=== PATIENT | male | born 1935 | race Caucasian/White ===

== ENCOUNTER 2019-09-20 15:44 | Inpatient (IN) | payer MEDICARE ==
[2019-09-20] MEDS ORDERED: Acetaminophen 500 MG TAB PO PRN (17:13)
[2019-09-20] MEDS ORDERED: [UNRECOGNIZED DRUG - OTHER] PO PRN ×2 (17:30)
[2019-09-20] MEDS ORDERED: OXYCODONE PO PRN ×2 (17:30)
[2019-09-20] MEDS: Senokot S 8.6-50 MG TAB PO SCH (20:21)
[2019-09-20] MEDS: Gabapentin 300 MG CAP PO SCH (20:21)
[2019-09-20] MEDS: Tamsulosin HCl 0.4 MG CAP PO SCH (20:22)
[2019-09-20] MEDS: Atorvastatin Calcium 10 MG TAB PO SCH (20:22)
[2019-09-20] MEDS: oxyCODONE 5 MG TAB PO PRN (20:27)
[2019-09-20] MEDS: Zolpidem Tartrate 5 MG TAB PO PRN (22:16)
[2019-09-21] MEDS: oxyCODONE 5 MG TAB PO PRN ×5 (00:41→21:09)
[2019-09-21] MEDS: Acetaminophen 500 MG TAB PO PRN ×5 (00:41→21:11)
[2019-09-21] MEDS ORDERED: Cefepime 2 GM VIAL IVPB SCH (05:00)
[2019-09-21] MEDS: Cefepime 2 GM in Sodium Chloride 0.9% 100 ML IVPB SCH ×2 (05:03→16:45)
[2019-09-21] MEDS: Sodium Chloride 0.9% 20 ML ONE ×2 (05:04→14:22)
[2019-09-21 05:40] LABS: #Basophils 0.1 thou/uL (0.0-0.2); #Eosinphils 0.6 thou/uL (0.0-0.7); #Lymphocytes 1.3 thou/uL (1.20-3.40); #Monocytes 0.6 thou/uL (0.11-0.59); %Basophils 0.7 % (0.0-1.0); %Eosinophils 7.7 % (0.0-10.0); %Monocytes 8.5 % (0.0-10.0); %Neutrophils 66.1 % (42.0-75.0); Hemoglobin 8.1 g/dL (14.0-18.0); Mean Corpuscular HGB CONC 31.3 g/dL (32.0-36.0); Mean Corpuscular Hemoglobin 29.8 pg (27.0-31.0); Mean Corpuscular Volume 95.1 fL (78.0-98.0); Mean Platelet Volume 7.3 fL (7.4-10.4); Platelet Count 249 thou/uL (130-400); RBC Distribution Width 16.6 % (11.5-14.5); Red Blood Cell (RBC) Count 2.72 mill/uL (4.70-6.10); White Blood Cell (WBC) Count 7.5 thou/uL (4.8-10.8)
[2019-09-21 05:54] LABS: ALT (SGPT) 43 U/L (8-55); AST (SGOT) 29 U/L (5-34); Albumin 2.4 g/dL (3.4-4.8); Alkaline Phosphatase 77 U/L (40-110); Anion Gap 11 mmol/L (10-20); BUN (Urea Nitrogen) 9 mg/dL (8.4-25.7); Bilirubin, Total 0.5 mg/dL (0.2-1.2); Calc. Creatinine Clearance 99 mL/min (70-130); Calcium 7.5 mg/dL (7.8-10.44); Carbon Dioxide 25 mmol/L (23-31); Chloride 105 mmol/L (98-107); Estimated GFR-MDRD Greater than 90; Globulin 2.3 g/dL (2.4-3.5); Glucose 95 mg/dL (83-110); Potassium 3.6 mmol/L (3.5-5.1); Protein, Total 4.7 g/dL (5.8-8.1); Sodium 137 mmol/L (136-145)
--- NOTE | 2019-09-21 08:01 | HP ---
HISTORY OF PRESENT ILLNESS: The patient is an unfortunate 83-year-old white male with a history of recent diagnosis of osteomyelitis and infected lumbosacral hardware requiring removal of the hardware by Dr. Gaona and placement on cefepime 2 g IV q.12 hours until November 04 because of Klebsiella infection on the hardware. He has had problems with chronic pain in his back for years secondary to thoracic spinal stenosis requiring the initial decompression in July of 2018 as well as a lumbar laminectomy in 2018. He has been followed by pain management and has been started on oxycodone routinely because of persistent pain with recommendation for possible fentanyl patch if this does not control his pain. At this time, he is awake and alert and in no distress except asking for his pain medicine. He is having moderate weakness in his legs with inability to raise against gravity off the bed more than a few inches. He is not having any fecal incontinence, but he has had a long history of benign prostatic hypertrophy with lower tract obstructive symptoms and has developed urinary retention during this hospitalization. He has been seen by Urology, Dr. Hernandez, started on Flomax and finasteride and has had his Melendez catheter removed immediately prior to discharge with instructions for intermittent catheterizations and routine bladder scans for check of post void residuals. He has also had a complication during this admission of his episode of hypotension felt to be due to combination of neurogenic shock versus hypovolemia with doubt for bacteremia and sepsis, this has resolved. He also has had a history of gastrointestinal bleeding. It is felt to be due to recurrent NSAID use and this all has resolved with IV fluids, but did require 1 unit of packed cells. He has been admitted to [facility] unit, started on physical therapy as well as pain relief and continued antibiotics. PAST MEDICAL HISTORY: Remarkable also for history of hypertension, hyperlipidemia. No history of coronary artery disease, congestive heart failure. PAST SURGICAL HISTORY: Positive for thoracic and lumbar laminectomy and decompression with placement of hardware and also has had skin cancer removal in the past. SOCIAL HISTORY: He is a former tobacco smoker, has not smoked in 10 years. He denies alcohol use. He lives with his . He has no known drug allergies. MEDICATIONS: At this time include; 1. Aspirin 81 daily. 2. Atorvastatin 10 nightly. 3. Cefepime 2 g IV twice daily q.12 hours until November 04. 4. Ciprofloxacin 500 mg p.o. q.12 to start on November 05, continue for 6 months. 5. Ferrous sulfate 325 mg every other day. 6. Finasteride 5 daily. 7. Gabapentin 300 three times daily. 8. Oxycodone 10 mg every 4 hours as needed for severe pain or oxycodone 5 mg every 4 hours as needed for [id number] pain. 9. Pantoprazole 40 mg daily. 10. MiraLAX 17 g daily. 11. Tamsulosin 0.4 mg twice daily. 12. Ambien 5 mg at night for sleep. REVIEW OF SYSTEMS: CONSTITUTIONAL: He denies any headaches, dizziness, change in vision or hearing, hoarseness, or dysphagia. PULMONARY: Denies any cough, sputum production, pneumonia, asthma, or tuberculosis. CARDIOVASCULAR: Denies chest pain, orthopnea, paroxysmal nocturnal dyspnea, or edema. GASTROINTESTINAL: Denies nausea, vomiting, abdominal pain at this time or even when he had his upper GI bleed. GENITOURINARY: He has recurrent symptoms of lower tract obstruction with nocturia, decreased stream, has no dysuria. He is at this time having no symptoms of retention or dysuria and has been monitored closely. MUSCULOSKELETAL: He has a history of pain in his back, which is improved from laminectomy, but is still severe with most pain occurring upon standing, but also occurs upon sitting and even at rest. This, however, is being controlled with his oxycodone at this time and being monitored closely. NEUROLOGIC: He has above-mentioned weakness in his legs, some mild decreased sensation in his legs. He has no fecal incontinence. Does have some mild urinary incontinence and obviously has the lower tract obstruction. PHYSICAL EXAMINATION: GENERAL: Shows him to be an elderly white male, lying in bed, in no acute distress. Oriented x3 and cooperative. VITAL SIGNS: Show temperature of 98.6, pulse 74, respirations 22, O2 sats 94% on room air, and blood pressure 121/62. HEENT: Pupils are equal, round, and reactive to light and accommodation. Sclerae are anicteric. Conjunctivae are pale. Oral mucous membranes well hydrated. NECK: Supple. There are no nodes or masses. JVP is not elevated. LUNGS: Clear. CARDIAC: Showed regular rhythm. No gallops or murmurs. ABDOMEN: Soft and nontender with no masses or organomegaly. SKIN/EXTREMITIES: Display healing thoracic laminectomy incision. NEUROLOGICAL: Shows decreased strength in the legs with inability to raise more than a few inches off the bed. Cranial nerves 2 through 12 are intact. Deep tendon reflex 2+ and equal. Absent Babinski sign. LABORATORY DATA: Showing white count 11,100, hemoglobin of 8.8, and hematocrit of 25.2. Sodium 139, potassium 3.7, chloride 105, bicarb 27, BUN 11, and creatinine 0.62. ASSESSMENT: 1. Resolving Klebsiella infection of thoracic hardware, status post removal of hardware and decompressive laminectomy, now on cefepime 2 g IV q.12 until November 04. 2. Symptoms of persistent spinal cord stenosis with weakness in the legs and with increased urinary retention starting on PT/OT. 3. Recurrent pain secondary to the above-mentioned diskitis, osteomyelitis, superimposed on chronic degenerative disk disease and spinal stenosis, being followed by pain management on oxycodone 5 to 10 mg every 4 hours as needed for pain. 4. Lower tract obstructive symptoms secondary to benign prostatic hyperplasia with possible superimposed neurogenic bladder requiring Melendez catheterization until immediately prior to transfer, but now having residuals and we will replace Melendez and discuss intermittent catheterization with the patient as he appeared hesitant initially. 5. History of upper gastrointestinal bleed secondary to nonsteroidal anti-inflammatory use and we will monitor closely on pantoprazole for any recurrence. Job ID: [id number]
[2019-09-21] MEDS: Aspirin 81 mg Enteric Coated Tablet PO SCH (08:13)
[2019-09-21] MEDS: Gabapentin 300 MG CAP PO SCH ×3 (08:13→21:11)
[2019-09-21] MEDS: Calcium Carbonate 500 MG TAB PO SCH (08:13)
[2019-09-21] MEDS: Tamsulosin HCl 0.4 MG CAP PO SCH ×2 (08:13→21:11)
[2019-09-21] MEDS: Senokot S 8.6-50 MG TAB PO SCH ×2 (08:13→21:11)
[2019-09-21] MEDS: Finasteride 5 MG TAB PO SCH (08:14)
[2019-09-21] MEDS: Polyethylene Glycol 3350 17 GM Packet PO SCH (08:14)
[2019-09-21] MEDS ORDERED: Prevnar 13-Val Conj/PF 0.5 ML SYRINGE IM ONE (09:00)
[2019-09-21] MEDS: Pantoprazole 40 MG VIAL IVP SCH (14:22)
[2019-09-21] MEDS: Atorvastatin Calcium 10 MG TAB PO SCH (21:11)
[2019-09-22] MEDS ORDERED: Sodium Chloride 0.9% 20 ML ONE (03:15)
[2019-09-22] MEDS: Cefepime 2 GM in Sodium Chloride 0.9% 100 ML IVPB SCH ×2 (05:21→17:03)
[2019-09-22] MEDS: Acetaminophen 500 MG TAB PO PRN ×4 (05:23→21:08)
[2019-09-22] MEDS: oxyCODONE 5 MG TAB PO PRN ×4 (05:23→21:07)
--- NOTE | 2019-09-22 08:56 | PRG ---
DATE OF SERVICE: 09/21/2019 SUBJECTIVE: The patient feels better with persistent pain, but tolerable. No fever, chills, is eating well. Has not had therapy this weekend, however. OBJECTIVE: VITAL SIGNS: Temperature is 97, pulse 84, respirations 20, O2 saturations 95% on room air, blood pressure is 112/56. LABORATORY DATA: White count 7500, hematocrit 25, hemoglobin 8.1. Sodium 137, potassium 3.6, chloride 105, bicarb 25, BUN 9, creatinine 0.6, albumin 2.4. Liver function is normal. ASSESSMENT: 1. The patient is 83-year-old white male with recurrent back pain, status post multiple surgeries on his back and hardware, who has developed Pseudomonas infection of the hardware of his lumbar laminectomy and required removal of the hardware and now is on cefepime 2 g intravenously twice daily until November 04. He is on gabapentin as well as oxycodone and still having some pain and may require fentanyl patch, but we will discuss with pain doctor before this. 2. Hypertension, controlled to goal. 3. Hyperlipidemia, controlled to goal. 4. History of benign prostatic hypertrophy with lower tract obstructive symptoms and urinary retention, requiring Melendez catheter to be replaced versus intermittent catheterization. We will discuss this with the patient. 5. History of gastrointestinal bleed from non-steroidal anti-inflammatory drug use and we will monitor closely for recurrence. Job ID: [id number]
[2019-09-22] MEDS: Ferrous Sulfate 325 MG TAB PO SCH ×3 (08:57→17:02)
[2019-09-22] MEDS: Aspirin 81 mg Enteric Coated Tablet PO SCH (08:58)
[2019-09-22] MEDS: Polyethylene Glycol 3350 17 GM Packet PO SCH (08:59)
[2019-09-22] MEDS: Gabapentin 300 MG CAP PO SCH ×3 (08:59→21:09)
[2019-09-22] MEDS: Calcium Carbonate 500 MG TAB PO SCH (09:01)
[2019-09-22] MEDS: Tamsulosin HCl 0.4 MG CAP PO SCH ×2 (09:01→21:08)
[2019-09-22] MEDS: Senokot S 8.6-50 MG TAB PO SCH ×2 (09:01→21:08)
[2019-09-22] MEDS: Finasteride 5 MG TAB PO SCH (09:02)
[2019-09-22] MEDS: Pantoprazole 40 MG VIAL IVP SCH (10:02)
[2019-09-22] MEDS ORDERED: Ferrous Sulfate 325 MG TAB PO SCH (13:15)
[2019-09-22] MEDS: Atorvastatin Calcium 10 MG TAB PO SCH (21:08)
[2019-09-23] MEDS ORDERED: Sodium Chloride 0.9% 20 ML ONE (04:55)
[2019-09-23] MEDS: Cefepime 2 GM in Sodium Chloride 0.9% 100 ML IVPB SCH ×2 (05:58→16:27)
[2019-09-23] MEDS: oxyCODONE 5 MG TAB PO PRN (05:59)
[2019-09-23] MEDS: Aspirin 81 mg Enteric Coated Tablet PO SCH (08:44)
[2019-09-23] MEDS: Tamsulosin HCl 0.4 MG CAP PO SCH ×2 (08:44→21:16)
[2019-09-23] MEDS: Finasteride 5 MG TAB PO SCH (08:44)
[2019-09-23] MEDS: Gabapentin 300 MG CAP PO SCH ×3 (08:44→21:16)
[2019-09-23] MEDS: Polyethylene Glycol 3350 17 GM Packet PO SCH (08:45)
[2019-09-23] MEDS: Calcium Carbonate 500 MG TAB PO SCH (08:45)
[2019-09-23] MEDS: Senokot S 8.6-50 MG TAB PO SCH ×2 (08:45→21:17)
[2019-09-23] MEDS: Pantoprazole 40 MG VIAL IVP SCH (08:47)
--- NOTE | 2019-09-23 10:19 | PRG ---
DATE OF SERVICE: 09/23/2019 SUBJECTIVE: The patient is lying in the bed. He feels fairly well at rest, but does have pain at rest with significant pain on any movement despite taking oxycodone regularly. OBJECTIVE: VITAL SIGNS: Show temperature 97.6, pulse 92, respirations 18, O2 saturations 92% on room air, blood pressure 110/65. ABDOMEN: Soft and nontender. LUNGS: Clear. CARDIAC: Shows regular rhythm. BACK: Shows severe tenderness to palpation of any movement. ASSESSMENT: 1. Pseudomonas infection of hardware of his lumbar laminectomy with subsequent removal and placement on 2 g cefepime IV twice daily until November 04. 2. Severe back pain secondary to degenerative disk disease and in diskitis and osteomyelitis requiring oxycodone routinely and may require fentanyl as recommended by his pain physician, if no improvement by tomorrow. 3. Hypertension, controlled to goal. 4. Benign prostatic hypertrophy with urinary retention secondary to benign prostatic hypertrophy requiring Melendez catheter versus intermittent catheterization and has elected for Melendez catheterization at this time. 5. History of gastrointestinal bleed from nonsteroidal drugs, and we will monitor closely for recurrence. 6. Dr. Milan to return to take care of the patient and assume primary care tomorrow. Job ID: [id number]
--- NOTE | 2019-09-23 19:50 | PRG ---
DATE OF SERVICE: 09/23/2019 SUBJECTIVE: Mr. Manriquez is just back from therapy. He states that he is sore. His daughter is in the room. She states that his 59th anniversary is this and they are wondering if his can come and they can . I spoke with the nursing route delivery supervisor and she said that should be fine as long as they do it in the room. Nursing to inform daughter. His oxycodone is not helping, so fentanyl has been started. He continues on his IV antibiotics here. We will monitor weekly laboratory values. He is also having urinary retention, requiring Melendez catheterization and plan is for him to get a little bit more active and then we will try a trial of voiding. All questions answered. OBJECTIVE: VITAL SIGNS: He is afebrile. Heart rate 75, respirations 18, oxygen saturation 92% on room air, blood pressure 161/79. CARDIOVASCULAR SYSTEM: S1 and S2 plus. RESPIRATORY SYSTEM: Normal vesicular breath sounds. ABDOMEN: Soft and nontender. Bowel sounds heard in all quadrants. EXTREMITIES: Without cyanosis or clubbing. CENTRAL NERVOUS SYSTEM: Awake and responsive. Generalized weakness. Otherwise, nonfocal. GENITOURINARY: Melendez catheter in place. IMPRESSION: 1. Osteomyelitis and infection of hardware, requiring removal of hardware and long-term antibiotics. 2. Hypertension. 3. Dyslipidemia. 4. Benign prostatic hypertrophy. 5. Deconditioning. 6. Significant pain. PLAN: 1. Continue current medications. 2. Weekly CBC, CMP, CRP, and sedimentation rate. 3. TLSO brace while active. 4. Add fentanyl patch for pain. 5. Heart healthy diet. 6. Melendez catheter care. 7. DVT prophylaxis with PlexiPulses. 8. Decubitus precautions. 9. Stress ulcer prophylaxis. 10. Discussed with the patient and daughter in detail and all questions answered. Job ID: [id number]
[2019-09-23] MEDS: Atorvastatin Calcium 10 MG TAB PO SCH (21:17)
[2019-09-24] MEDS: Cefepime 2 GM in Sodium Chloride 0.9% 100 ML IVPB SCH ×2 (04:08→17:04)
[2019-09-24] MEDS: Finasteride 5 MG TAB PO SCH (08:12)
[2019-09-24] MEDS: Polyethylene Glycol 3350 17 GM Packet PO SCH (08:12)
[2019-09-24] MEDS: Aspirin 81 mg Enteric Coated Tablet PO SCH (08:13)
[2019-09-24] MEDS: Calcium Carbonate 500 MG TAB PO SCH (08:13)
[2019-09-24] MEDS: Tamsulosin HCl 0.4 MG CAP PO SCH ×2 (08:13→20:37)
[2019-09-24] MEDS: Senokot S 8.6-50 MG TAB PO SCH ×2 (08:13→20:37)
[2019-09-24] MEDS: Pantoprazole 40 MG VIAL IVP SCH (08:13)
[2019-09-24] MEDS: Gabapentin 300 MG CAP PO SCH ×3 (08:13→20:37)
[2019-09-24] MEDS: Ferrous Sulfate 325 MG TAB PO SCH ×2 (08:19→17:05)
[2019-09-24] MEDS ORDERED: Ferrous Sulfate 325 MG TAB PO SCH (12:00)
[2019-09-24] MEDS: oxyCODONE 5 MG TAB PO PRN ×2 (13:30→17:48)
--- NOTE | 2019-09-24 14:00 | PRG ---
DATE OF SERVICE: 09/24/2019 SUBJECTIVE: Mr. Manriquze is resting in bed. His pain is improving. He did participate with therapy. Denies any questions or concerns. OBJECTIVE: VITAL SIGNS: He is afebrile. Heart rate 77, respirations 18, oxygen saturation 93% on room air, blood pressure 106/58. CARDIOVASCULAR: S1 and S2 plus. RESPIRATORY: Normal vesicular breath sounds. ABDOMEN: Soft, nontender. Bowel sounds heard in all quadrants. EXTREMITIES: Without cyanosis or clubbing. CENTRAL NERVOUS SYSTEM: Improving deconditioning. IMPRESSION: 1. Thoracic spine osteomyelitis requiring removal of hardware and long-term antibiotics. 2. Hypertension. 3. Dyslipidemia. 4. BPH. 5. Deconditioning. 6. Improving pain. PLAN: 1. Continue current medications. 2. Weekly CBC, CMP, CRP, and sedimentation rate. 3. TLSO brace. 4. Pain management. 5. Physical therapy. 6. Melendez catheter care. 7. Routine laboratory values. 8. Discussed with the patient in detail. All questions were answered. Job ID: [id number]
[2019-09-24] MEDS: Atorvastatin Calcium 10 MG TAB PO SCH (20:37)
[2019-09-25] MEDS: oxyCODONE 5 MG TAB PO PRN ×3 (00:09→09:17)
[2019-09-25] MEDS: Cefepime 2 GM in Sodium Chloride 0.9% 100 ML IVPB SCH ×2 (04:54→17:40)
[2019-09-25] MEDS: Finasteride 5 MG TAB PO SCH (09:18)
[2019-09-25] MEDS: Tamsulosin HCl 0.4 MG CAP PO SCH ×2 (09:18→20:04)
[2019-09-25] MEDS: Aspirin 81 mg Enteric Coated Tablet PO SCH (09:19)
[2019-09-25] MEDS: Calcium Carbonate 500 MG TAB PO SCH (09:19)
[2019-09-25] MEDS: Gabapentin 300 MG CAP PO SCH ×3 (09:19→20:04)
[2019-09-25] MEDS: Pantoprazole 40 MG VIAL IVP SCH (09:19)
[2019-09-25] MEDS: Polyethylene Glycol 3350 17 GM Packet PO SCH (09:20)
[2019-09-25] MEDS: Senokot S 8.6-50 MG TAB PO SCH ×2 (09:20→20:04)
--- NOTE | 2019-09-25 13:34 | PRG ---
DATE OF SERVICE: 09/25/2019 SUBJECTIVE: Mr. Manriquez is doing well. Denies any complaints. He is being advanced to thin liquids. He also complains of breakthrough pain, so we will increase his fentanyl patch. He apparently was on 37.5 in the past. He is having good bowel movements. Discussed with nursing. OBJECTIVE: VITAL SIGNS: He is afebrile, heart rate 84, respirations 20, oxygen saturation 93% on room air, and blood pressure 109/62. CARDIOVASCULAR SYSTEM: S1 and S2 plus. RESPIRATORY SYSTEM: Normal vesicular breath sounds. ABDOMEN: Soft and nontender. Bowel sounds were heard in all quadrants. EXTREMITIES: Without cyanosis or clubbing. CENTRAL NERVOUS SYSTEM: Improving deconditioning. IMPRESSION: 1. Thoracic diskitis and osteomyelitis requiring long-term IV antibiotics and removal of hardware. 2. Hypertension. 3. Dyslipidemia. 4. Benign prostatic hyperplasia. 5. Deconditioning. 6. Chronic pain. PLAN: 1. Continue current medications, but increase fentanyl to 37.5. 2. Continue bracing while active. 3. DVT and stress ulcer prophylaxis. 4. Decubitus precautions. 5. Heart healthy diet. 6. Monitor blood pressure and adjust medications as needed. 7. Weekly CBC, CRP, CMP, and sedimentation rate. Job ID: [id number]
[2019-09-25] MEDS: Nystatin Powder 15 GM BOT TOP SCH (20:03)
[2019-09-25] MEDS: Atorvastatin Calcium 10 MG TAB PO SCH (20:04)
[2019-09-26] MEDS: Cefepime 2 GM in Sodium Chloride 0.9% 100 ML IVPB SCH ×2 (04:31→16:57)
[2019-09-26] MEDS: oxyCODONE 5 MG TAB PO PRN ×4 (04:39→16:56)
[2019-09-26 05:33] LABS: #Basophils 0.1 thou/uL (0.0-0.2); #Eosinphils 0.5 thou/uL (0.0-0.7); #Lymphocytes 1.3 thou/uL (1.20-3.40); #Monocytes 0.8 thou/uL (0.11-0.59); #Neutrophils 5.8 thou/uL (1.40-6.50); %Basophils 1.1 % (0.0-1.0); %Eosinophils 5.8 % (0.0-10.0); %Lymphocytes 15.2 % (21.0-51.0); %Monocytes 9.9 % (0.0-10.0); %Neutrophils 67.9 % (42.0-75.0); Hemoglobin 9.1 g/dL (14.0-18.0); Mean Corpuscular HGB CONC 30.8 g/dL (32.0-36.0); Mean Corpuscular Hemoglobin 28.5 pg (27.0-31.0); Mean Corpuscular Volume 92.3 fL (78.0-98.0); Mean Platelet Volume 7.7 fL (7.4-10.4); Platelet Count 232 thou/uL (130-400); White Blood Cell (WBC) Count 8.5 thou/uL (4.8-10.8)
[2019-09-26 05:49] LABS: AST (SGOT) 17 U/L (5-34); Albumin 2.9 g/dL (3.4-4.8); Alkaline Phosphatase 94 U/L (40-110); Anion Gap 9 mmol/L (10-20); BUN (Urea Nitrogen) 14 mg/dL (8.4-25.7); Bilirubin, Total 0.5 mg/dL (0.2-1.2); CRP (Inflammatory) 1.89 mg/dL (= or < 0.5); Calc. Creatinine Clearance 81 mL/min (70-130); Carbon Dioxide 27 mmol/L (23-31); Chloride 104 mmol/L (98-107); Estimated GFR-MDRD Greater than 90; Globulin 2.5 g/dL (2.4-3.5); Glucose 108 mg/dL (83-110); Potassium 3.6 mmol/L (3.5-5.1); Protein, Total 5.4 g/dL (5.8-8.1); Sodium 136 mmol/L (136-145)
[2019-09-26 05:59] LABS: ALT (SGPT) 26 U/L (8-55)
[2019-09-26] MEDS: Finasteride 5 MG TAB PO SCH (09:45)
[2019-09-26] MEDS: Gabapentin 300 MG CAP PO SCH ×3 (09:45→21:34)
[2019-09-26] MEDS: Tamsulosin HCl 0.4 MG CAP PO SCH ×2 (09:45→21:34)
[2019-09-26] MEDS: Senokot S 8.6-50 MG TAB PO SCH ×2 (09:45→21:34)
[2019-09-26] MEDS: Polyethylene Glycol 3350 17 GM Packet PO SCH (09:45)
[2019-09-26] MEDS: Calcium Carbonate 500 MG TAB PO SCH (09:46)
[2019-09-26] MEDS: Pantoprazole 40 MG VIAL IVP SCH (09:46)
[2019-09-26] MEDS: Aspirin 81 mg Enteric Coated Tablet PO SCH (09:46)
[2019-09-26] MEDS: Nystatin Powder 15 GM BOT TOP SCH (09:46)
[2019-09-26] MEDS: Ferrous Sulfate 325 MG TAB PO SCH ×3 (10:38→16:56)
--- NOTE | 2019-09-26 13:24 | PRG ---
DATE OF SERVICE: 09/26/2019 SUBJECTIVE: Mr. Manriquez is resting in bed. He required one dose of oxycodone this morning. He otherwise feels like the fentanyl is helping. His appetite is poor and I encouraged him to at least drink three Ensure's a day. He did celebrate his 59th anniversary today his . OBJECTIVE: VITAL SIGNS: He is afebrile. Heart rate 80, respirations 20, oxygen saturation 93% on room air, blood pressure 110/64. CARDIOVASCULAR SYSTEM: S1 and S2 plus. RESPIRATORY SYSTEM: Normal vesicular breath sounds. ABDOMEN: Soft, nontender. Bowel sounds heard in all quadrants. EXTREMITIES: Without cyanosis or clubbing. Melendez catheter in place. LABORATORY DATA: Laboratory value shows a white count of 8.5, H and H are 9.1 and 29.6. Sedimentation rate of 17. Sodium 136, potassium 3.6. BUN and creatinine are 14 and 0.69, and is 1.89. IMPRESSION: 1. Diskitis and osteomyelitis of the thoracic spine on long-term antibiotics till the 04 of November. 2. Deconditioning. 3. Chronic pain. 4. Anemia of chronic disease. 5. Hypertension. 6. Dyslipidemia. 7. BPH with urinary retention. PLAN: 1. Continue current medications. 2. Nutritional support with heart-healthy diet. 3. Melendez catheter care. 4. DVT and stress ulcer prophylaxis. 5. Decubitus precautions. 6. Routine laboratory values. 7. Physical therapy. Job ID: [id number]
[2019-09-26] MEDS: Atorvastatin Calcium 10 MG TAB PO SCH (21:34)
[2019-09-27] MEDS: Cefepime 2 GM in Sodium Chloride 0.9% 100 ML IVPB SCH ×2 (05:10→16:18)
[2019-09-27] MEDS: Nystatin Powder 15 GM BOT TOP SCH (08:46)
[2019-09-27] MEDS: oxyCODONE 5 MG TAB PO PRN ×2 (08:47→16:33)
[2019-09-27] MEDS: Senokot S 8.6-50 MG TAB PO SCH ×2 (08:48→21:23)
[2019-09-27] MEDS: Aspirin 81 mg Enteric Coated Tablet PO SCH (08:48)
[2019-09-27] MEDS: Tamsulosin HCl 0.4 MG CAP PO SCH ×2 (08:48→21:22)
[2019-09-27] MEDS: Finasteride 5 MG TAB PO SCH (08:49)
[2019-09-27] MEDS: Calcium Carbonate 500 MG TAB PO SCH (08:49)
[2019-09-27] MEDS: Polyethylene Glycol 3350 17 GM Packet PO SCH (08:49)
[2019-09-27] MEDS: Gabapentin 300 MG CAP PO SCH ×3 (08:49→21:22)
[2019-09-27] MEDS: Pantoprazole 40 MG VIAL IVP SCH (08:50)
--- NOTE | 2019-09-27 09:08 | PRG ---
DATE OF SERVICE: SUBJECTIVE: Mr. Manriquez is resting in bed. He is doing better. He states pain is reasonably well controlled. I again reminded him to take his oxycodone prior to therapy. He states that he seems to be getting an appetite back. OBJECTIVE: VITAL SIGNS: He is afebrile, heart rate 76, respirations 20, oxygen saturation 95% on room air, blood pressure 109/62. CARDIOVASCULAR SYSTEM: S1, S2 plus. RESPIRATORY SYSTEM: Normal vesicular breath sounds. ABDOMEN: Soft, nontender. Bowel sounds heard in all quadrants. Melendez catheter still in place. EXTREMITIES: Without cyanosis or clubbing. CENTRAL NERVOUS SYSTEM: Improving, deconditioning. IMPRESSION: 1. Thoracic spine osteomyelitis and diskitis requiring removal of hardware and long-term antibiotics. 2. Urinary retention, likely due to BPH requiring Melendez catheter. 3. Hypertension. 4. Dyslipidemia. 5. Chronic pain. 6. Anemia of chronic disease. 7. Deconditioning. PLAN: 1. Continue current medications. 2. Nutritional support with heart healthy diet. 3. DVT prophylaxis with PlexiPulses. 4. Decubitus precautions. 5. Stress ulcer prophylaxis. 6. Routine laboratory values. 7. Melendez catheter care. 8. Weekly CBC, CRP, CMP, and sedimentation rate. 9. Spinal precautions. 10. Routine laboratory values. Job ID: [id number]
[2019-09-27] MEDS: Acetaminophen 500 MG TAB PO PRN (21:22)
[2019-09-27] MEDS: Atorvastatin Calcium 10 MG TAB PO SCH (21:23)
[2019-09-27] MEDS: Zolpidem Tartrate 5 MG TAB PO PRN (21:23)
[2019-09-28] MEDS: Cefepime 2 GM in Sodium Chloride 0.9% 100 ML IVPB SCH ×3 (04:52→17:51)
[2019-09-28] MEDS: Gabapentin 300 MG CAP PO SCH ×3 (08:22→21:17)
[2019-09-28] MEDS: Calcium Carbonate 500 MG TAB PO SCH (08:23)
[2019-09-28] MEDS: Senokot S 8.6-50 MG TAB PO SCH ×2 (08:23→21:17)
[2019-09-28] MEDS: Tamsulosin HCl 0.4 MG CAP PO SCH ×2 (08:23→21:17)
[2019-09-28] MEDS: Finasteride 5 MG TAB PO SCH (08:23)
[2019-09-28] MEDS: Polyethylene Glycol 3350 17 GM Packet PO SCH (08:23)
[2019-09-28] MEDS: Acetaminophen 500 MG TAB PO PRN ×3 (08:41→21:17)
[2019-09-28] MEDS: oxyCODONE 5 MG TAB PO PRN ×2 (08:41→14:20)
[2019-09-28] MEDS: Aspirin 81 mg Enteric Coated Tablet PO SCH (08:54)
[2019-09-28] MEDS: Ferrous Sulfate 325 MG TAB PO SCH ×3 (08:54→17:51)
[2019-09-28] MEDS ORDERED: Ferrous Sulfate 325 MG TAB PO SCH (13:30)
--- NOTE | 2019-09-28 15:34 | PRG ---
DATE OF SERVICE: 09/28/2019 SUBJECTIVE: Mr. Manriquez is doing well. He apparently had a shower and he just had a bowel movement. He is sore. He just got his fentanyl patch replaced. I again reminded him to make sure he asks for his oxycodone for breakthrough pain. OBJECTIVE: VITAL SIGNS: He is afebrile. Heart rate 72, respirations 20, oxygen saturation 92% on room air, and blood pressure 110/59. CARDIOVASCULAR: S1 and S2 plus. RESPIRATORY: Normal vesicular breath sounds. ABDOMEN: Soft and nontender. Bowel sounds heard in all quadrants. EXTREMITIES: Without cyanosis or clubbing. CENTRAL NERVOUS SYSTEM: Improving deconditioning. IMPRESSION: 1. Thoracic spine osteomyelitis and diskitis. 2. Benign prostatic hypertrophy with urinary retention. 3. Insomnia. 4. Deconditioning. 5. Hypertension. 6. Dyslipidemia. 7. Anemia of chronic disease. PLAN: 1. Continue current medications, but simplify his iron dosing. 2. Nutritional support with heart healthy diet. 3. DVT prophylaxis. We will do PlexiPulses. 4. Decubitus precautions. 5. Melendez catheter care. 6. Physical therapy. 7. Continue IV antibiotics. 8. Spinal precautions. 9. Pain control. Job ID: [id number]
[2019-09-28] MEDS: Pantoprazole 40 MG VIAL IVP SCH (17:35)
[2019-09-28] MEDS: Atorvastatin Calcium 10 MG TAB PO SCH (21:17)
[2019-09-28] MEDS: Zolpidem Tartrate 5 MG TAB PO PRN (21:17)
[2019-09-29] MEDS: Cefepime 2 GM in Sodium Chloride 0.9% 100 ML IVPB SCH ×2 (05:42→16:34)
[2019-09-29] MEDS: Tamsulosin HCl 0.4 MG CAP PO SCH ×2 (08:34→20:55)
[2019-09-29] MEDS: Aspirin 81 mg Enteric Coated Tablet PO SCH (08:34)
[2019-09-29] MEDS: Gabapentin 300 MG CAP PO SCH ×3 (08:35→20:56)
[2019-09-29] MEDS: Calcium Carbonate 500 MG TAB PO SCH (08:35)
[2019-09-29] MEDS: Ferrous Sulfate 325 MG TAB PO SCH ×2 (08:35→16:34)
[2019-09-29] MEDS: Senokot S 8.6-50 MG TAB PO SCH ×2 (08:35→20:55)
[2019-09-29] MEDS: Finasteride 5 MG TAB PO SCH (08:35)
[2019-09-29] MEDS: Pantoprazole 40 MG VIAL IVP SCH (08:35)
[2019-09-29] MEDS: Polyethylene Glycol 3350 17 GM Packet PO SCH (08:35)
--- NOTE | 2019-09-29 12:57 | PRG ---
DATE OF SERVICE: 09/29/2019 SUBJECTIVE: Mr. Manriquez is resting in bed. He denies any complaints other than pain. He is not sure how many times he asks for his oxycodone for breakthrough pain. Reviewing his med rec, he last got it yesterday afternoon at 2:20. He again reminded him to ask for it if he is hurting. OBJECTIVE: VITAL SIGNS: He is afebrile. Heart rate 88, respirations 20, oxygen saturation 93% on room air, blood pressure 111/58. CARDIOVASCULAR: S1 and S2 plus. RESPIRATORY: Normal vesicular breath sounds. ABDOMEN: Soft, nontender. Bowel sounds heard in all quadrants. EXTREMITIES: Without cyanosis or clubbing. CENTRAL NERVOUS SYSTEM: Persistent deconditioning. IMPRESSION: 1. Thoracic spine diskitis and osteomyelitis. 2. Poor p.o. intake. 3. Hypertension. 4. Benign prostatic hypertrophy with urinary retention. 5. Dyslipidemia. 6. Anemia of chronic disease. 7. Insomnia. PLAN: 1. Continue current medications. 2. Heart healthy diet. 3. DVT prophylaxis with PlexiPulses. 4. Decubitus precautions. 5. Melendez catheter care. 6. Physical therapy. 7. IV antibiotics. 8. Spinal precautions. 9. Reinforced p.o. intake and asking for pain medications. No family at bedside. Job ID: [id number]
[2019-09-29] MEDS: oxyCODONE 5 MG TAB PO PRN (14:54)
[2019-09-29] MEDS: Acetaminophen 500 MG TAB PO PRN (20:55)
[2019-09-29] MEDS: Atorvastatin Calcium 10 MG TAB PO SCH (20:56)
[2019-09-29] MEDS: Zolpidem Tartrate 5 MG TAB PO PRN (20:56)
[2019-09-30] MEDS: Cefepime 2 GM in Sodium Chloride 0.9% 100 ML IVPB SCH ×2 (05:31→16:25)
[2019-09-30] MEDS ORDERED: Sodium Chloride 0.9% 20 ML ONE (09:51)
[2019-09-30] MEDS: Finasteride 5 MG TAB PO SCH (09:54)
[2019-09-30] MEDS: Gabapentin 300 MG CAP PO SCH ×3 (09:54→20:49)
[2019-09-30] MEDS: Tamsulosin HCl 0.4 MG CAP PO SCH ×2 (09:54→20:49)
[2019-09-30] MEDS: Calcium Carbonate 500 MG TAB PO SCH (09:55)
[2019-09-30] MEDS: Aspirin 81 mg Enteric Coated Tablet PO SCH (09:55)
[2019-09-30] MEDS: Ferrous Sulfate 325 MG TAB PO SCH ×2 (09:55→16:41)
[2019-09-30] MEDS: Senokot S 8.6-50 MG TAB PO SCH ×2 (09:55→20:49)
[2019-09-30] MEDS: Pantoprazole 40 MG VIAL IVP SCH (09:56)
[2019-09-30] MEDS: oxyCODONE 5 MG TAB PO PRN ×2 (10:22→16:30)
[2019-09-30] MEDS: Polyethylene Glycol 3350 17 GM Packet PO SCH (10:23)
--- NOTE | 2019-09-30 17:42 | PRG ---
DATE OF SERVICE: 09/30/2019 improving deconditioning. IMPRESSION: 1. Thoracic spine osteomyelitis and diskitis. 2. Hypertension. 3. Dyslipidemia. 4. Improving deconditioning. 5. Poor p.o. intake. 6. Benign prostatic hypertrophy with urinary retention. 7. Anemia of chronic disease. PLAN: 1. Continue current medications. 2. Heart healthy diet. 3. DVT prophylaxis with PlexiPulses. 4. Decubitus precautions. 5. Stress ulcer prophylaxis. 6. Melendez catheter care. 7. Continue physical therapy. 8. Spinal precautions. 9. Weekly CBC, CRP, CMP, and sedimentation rate. Job ID: [id number]
[2019-09-30] MEDS: Zolpidem Tartrate 5 MG TAB PO PRN (20:49)
[2019-09-30] MEDS: Atorvastatin Calcium 10 MG TAB PO SCH (20:49)
[2019-10-01] MEDS: Cefepime 2 GM in Sodium Chloride 0.9% 100 ML IVPB SCH ×2 (05:10→18:01)
[2019-10-01] MEDS: oxyCODONE 5 MG TAB PO PRN ×3 (07:30→20:12)
[2019-10-01] MEDS: Ferrous Sulfate 325 MG TAB PO SCH ×2 (07:48→18:01)
[2019-10-01] MEDS: Aspirin 81 mg Enteric Coated Tablet PO SCH (07:48)
[2019-10-01] MEDS: Senokot S 8.6-50 MG TAB PO SCH ×2 (07:48→20:11)
[2019-10-01] MEDS: Calcium Carbonate 500 MG TAB PO SCH (07:48)
[2019-10-01] MEDS: Gabapentin 300 MG CAP PO SCH ×3 (07:48→20:11)
[2019-10-01] MEDS: Tamsulosin HCl 0.4 MG CAP PO SCH ×2 (07:48→20:11)
[2019-10-01] MEDS: Finasteride 5 MG TAB PO SCH (07:49)
[2019-10-01] MEDS: Pantoprazole 40 MG VIAL IVP SCH (07:49)
[2019-10-01] MEDS: Polyethylene Glycol 3350 17 GM Packet PO SCH (07:50)
--- NOTE | 2019-10-01 14:03 | PRG ---
DATE OF SERVICE: 10/01/2019 SUBJECTIVE: Mr. Manriquez is getting ready to work with therapy. He is still not eating well. His is in the room. All questions answered. She was wondering if we can increase his fentanyl patch and I advised her that I certainly can, but I really do not want him to be drowsy. He last took his oxycodone this morning at 7:30 a.m., and he is averaging about one or two doses a day maximal and it is ordered every 4 hours. OBJECTIVE: VITAL SIGNS: He is afebrile, heart rate 89, respirations 20, oxygen saturation 93% on room air, blood pressure 124/73. CARDIOVASCULAR: S1 and S2 plus. RESPIRATORY: Normal vesicular breath sounds. ABDOMEN: Soft and nontender. Bowel sounds heard in all quadrants. EXTREMITIES: Without cyanosis or clubbing. Melendez catheter in place. CENTRAL NERVOUS SYSTEM: Improving deconditioning. IMPRESSION: 1. Thoracic spine diskitis and osteomyelitis. 2. Hypertension. 3. Dyslipidemia. 4. Benign prostatic hypertrophy with urinary retention. 5. Improving deconditioning. 6. Chronic pain. PLAN: 1. Continue current medications. 2. Nutritional support with heart healthy diet. 3. DVT prophylaxis with PlexiPulses. 4. Melendez catheter care. 5. Physical therapy. 6. Weekly CBC, CRP, CMP, and sedimentation rate. 7. Continue IV antibiotics. 8. Discussed with the patient and spouse in detail and all questions answered. Job ID: [id number]
[2019-10-01] MEDS: Atorvastatin Calcium 10 MG TAB PO SCH (20:11)
[2019-10-02] MEDS: Cefepime 2 GM in Sodium Chloride 0.9% 100 ML IVPB SCH ×2 (05:43→17:06)
[2019-10-02] MEDS: oxyCODONE 5 MG TAB PO PRN ×3 (05:52→20:56)
[2019-10-02] MEDS: Gabapentin 300 MG CAP PO SCH ×3 (08:58→20:57)
[2019-10-02] MEDS: Finasteride 5 MG TAB PO SCH (08:58)
[2019-10-02] MEDS: Tamsulosin HCl 0.4 MG CAP PO SCH ×2 (08:58→20:57)
[2019-10-02] MEDS: Ferrous Sulfate 325 MG TAB PO SCH ×2 (08:58→17:06)
[2019-10-02] MEDS: Senokot S 8.6-50 MG TAB PO SCH ×2 (08:59→20:58)
[2019-10-02] MEDS: Aspirin 81 mg Enteric Coated Tablet PO SCH (08:59)
[2019-10-02] MEDS: Pantoprazole 40 MG VIAL IVP SCH (08:59)
[2019-10-02] MEDS: Calcium Carbonate 500 MG TAB PO SCH (08:59)
[2019-10-02] MEDS: Polyethylene Glycol 3350 17 GM Packet PO SCH (09:00)
--- NOTE | 2019-10-02 12:43 | PRG ---
DATE OF SERVICE: 10/02/2019 SUBJECTIVE: Mr. Manriquez is just back from therapy. He took an oxycodone prior to therapy and states that he is doing okay from the pain standpoint. OBJECTIVE: VITAL SIGNS: He is afebrile. Heart rate 89, respirations 18, oxygen saturation 92% room air, blood pressure 137/69. CARDIOVASCULAR: S1 and S2 plus. RESPIRATORY: Normal vesicular breath sounds. ABDOMEN: Soft, nontender. Bowel sounds heard in all quadrants. EXTREMITIES: Without cyanosis or clubbing. CENTRAL NERVOUS SYSTEM: Improving deconditioning. IMPRESSION: 1. Thoracic spine osteomyelitis and diskitis. 2. Hypertension. 3. Dyslipidemia. 4. Chronic pain. 5. BPH with urinary retention. 6. Improving deconditioning. 7. Anemia of chronic disease. PLAN: 1. Continue current medications. 2. Nutritional support with heart healthy diet. 3. DVT prophylaxis. 4. Decubitus precautions. 5. Stress ulcer prophylaxis. 6. Melendez catheter care. 7. Weekly CBC, CRP, CMP, and sedimentation rate. 8. Continue therapy. 9. Pain management. Job ID: [id number]
[2019-10-02] MEDS: Atorvastatin Calcium 10 MG TAB PO SCH (20:57)
[2019-10-02] MEDS: Nystatin Powder 15 GM BOT TOP SCH (21:02)
[2019-10-03] MEDS: Cefepime 2 GM in Sodium Chloride 0.9% 100 ML IVPB SCH ×2 (04:57→17:22)
[2019-10-03 05:18] LABS: #Eosinphils 0.9 thou/uL (0.0-0.7); #Lymphocytes 1.4 thou/uL (1.20-3.40); #Monocytes 0.6 thou/uL (0.11-0.59); #Neutrophils 3.6 thou/uL (1.40-6.50); %Basophils 0.7 % (0.0-1.0); %Eosinophils 13.7 % (0.0-10.0); %Lymphocytes 21.6 % (21.0-51.0); %Monocytes 8.9 % (0.0-10.0); %Neutrophils 55.2 % (42.0-75.0); Hemoglobin 9.4 g/dL (14.0-18.0); Mean Corpuscular HGB CONC 30.9 g/dL (32.0-36.0); Mean Corpuscular Hemoglobin 28.7 pg (27.0-31.0); Mean Corpuscular Volume 92.8 fL (78.0-98.0); Mean Platelet Volume 8.5 fL (7.4-10.4); Platelet Count 156 thou/uL (130-400); RBC Distribution Width 15.6 % (11.5-14.5); Red Blood Cell (RBC) Count 3.28 mill/uL (4.70-6.10); White Blood Cell (WBC) Count 6.6 thou/uL (4.8-10.8)
[2019-10-03 05:38] LABS: ALT (SGPT) 22 U/L (8-55); AST (SGOT) 26 U/L (5-34); Albumin 2.8 g/dL (3.4-4.8); Alkaline Phosphatase 91 U/L (40-110); Anion Gap 12 mmol/L (10-20); BUN (Urea Nitrogen) 21 mg/dL (8.4-25.7); Bilirubin, Total 0.3 mg/dL (0.2-1.2); CRP (Inflammatory) 1.61 mg/dL (= or < 0.5); Calc. Creatinine Clearance 86 mL/min (70-130); Calcium 8.1 mg/dL (7.8-10.44); Carbon Dioxide 25 mmol/L (23-31); Chloride 104 mmol/L (98-107); Estimated GFR-MDRD Greater than 90; Globulin 2.9 g/dL (2.4-3.5); Glucose 96 mg/dL (83-110); Potassium 4.1 mmol/L (3.5-5.1); Protein, Total 5.7 g/dL (5.8-8.1); Sodium 137 mmol/L (136-145)
[2019-10-03] MEDS: Senokot S 8.6-50 MG TAB PO SCH ×2 (08:02→20:29)
[2019-10-03] MEDS: Tamsulosin HCl 0.4 MG CAP PO SCH ×2 (08:02→20:28)
[2019-10-03] MEDS: Aspirin 81 mg Enteric Coated Tablet PO SCH (08:02)
[2019-10-03] MEDS: Finasteride 5 MG TAB PO SCH (08:02)
[2019-10-03] MEDS: Calcium Carbonate 500 MG TAB PO SCH (08:02)
[2019-10-03] MEDS: Pantoprazole 40 MG VIAL IVP SCH (08:02)
[2019-10-03] MEDS: Gabapentin 300 MG CAP PO SCH ×3 (08:02→20:29)
[2019-10-03] MEDS: Ferrous Sulfate 325 MG TAB PO SCH ×2 (08:02→17:22)
[2019-10-03] MEDS: Nystatin Powder 15 GM BOT TOP SCH (08:03)
[2019-10-03] MEDS: oxyCODONE 5 MG TAB PO PRN ×3 (08:07→20:27)
[2019-10-03] MEDS: Polyethylene Glycol 3350 17 GM Packet PO SCH (08:09)
--- NOTE | 2019-10-03 11:54 | PRG ---
DATE OF SERVICE: 10/03/2019 SUBJECTIVE: Mr. Manriquez is doing well. Denies any complaints. Happy with his progress. His spouse is in the room, and she clarified that his urologist wanted him to keep the Melendez catheter in until he follows up as outpatient for a cystoscopy. The patient apparently also has the skin cancer that needs to be removed and states that Dr. Diaz had cleared him, but I advised her that since we do not have any documentation, it is best that she contact the surgeon directly and find out if he is planning on doing it while he is here or whether after discharge and then we can coordinate the care. OBJECTIVE: VITAL SIGNS: He is afebrile, heart rate 80, respirations 18, oxygen saturation 92% on room air, blood pressure 113/62. CARDIOVASCULAR: S1 and S2 plus. RESPIRATORY: Normal vesicular breath sounds. ABDOMEN: Soft, nontender. Bowel sounds heard in all quadrants. EXTREMITIES: Without cyanosis or clubbing. NEUROLOGIC: Improving deconditioning. LABORATORY DATA: White count is 6.6, H and H are 9.4 and 30.4. Sodium 137, potassium 4.1, BUN and creatinine are 21 and 0.65, and sedimentation rate is down to 1.61. IMPRESSION: 1. Thoracic spine diskitis and osteomyelitis. 2. Hypertension. 3. Dyslipidemia. 4. Benign prostatic hypertrophy. 5. Improving deconditioning. 6. Iron deficiency anemia. PLAN: 1. Continue current medications. 2. Heart healthy diet. 3. Nutritional support. 4. Spinal precautions. 5. Continue antibiotics. 6. Physical Therapy. 7. Routine laboratory values. 8. Pain management. 9. Melendez catheter care. Job ID: [id number]
[2019-10-03] MEDS: Atorvastatin Calcium 10 MG TAB PO SCH (20:28)
[2019-10-04] MEDS: Cefepime 2 GM in Sodium Chloride 0.9% 100 ML IVPB SCH ×2 (04:49→16:03)
[2019-10-04] MEDS: oxyCODONE 5 MG TAB PO PRN ×4 (04:56→22:38)
[2019-10-04] MEDS ORDERED: Sodium Chloride 0.9% 20 ML ONE (08:21)
--- NOTE | 2019-10-04 08:46 | PRG ---
DATE OF SERVICE: 10/04/2019 SUBJECTIVE: Mr. Manriquez is resting in bed. He states that he feels great. He was sleeping so sound. He states he had to be woken up for breakfast. He still has breakthrough pain, but oxycodone is working. I advised him that Dr. Ortega had called about him and left a message, and I returned his call back and gave him my cell phone number. We had been playing phone tag. OBJECTIVE: VITAL SIGNS: He is afebrile, heart rate 88, respirations 18, oxygen saturation on room air, and blood pressure 113/64. CARDIOVASCULAR SYSTEM: S1 and S2 plus. RESPIRATORY SYSTEM: Normal vesicular breath sounds. ABDOMEN: Soft, nontender. Bowel sounds heard in all quadrants. EXTREMITIES: Without cyanosis or clubbing. CENTRAL NERVOUS SYSTEM: Improving deconditioning. LABORATORY DATA: His sedimentation rate is down to 14. IMPRESSION: 1. Thoracic spine osteomyelitis and diskitis. 2. Benign prostatic hypertrophy. Apparently urologist recommended leaving the Melendez catheter in, per spouse. 3. Hypertension. 4. Dyslipidemia. 5. Improving deconditioning. 6. Iron-deficiency anemia. PLAN: 1. Continue current medications. 2. Heart healthy diet. 3. Continue IV antibiotics. 4. Weekly CBC, CMP, CRP, and sedimentation rate. 5. Physical therapy. 6. Spinal precaution. 7. Routine laboratory values. 8. Pain management. 9. Dr. Torrez on-call this weekend. Job ID: [id number]
[2019-10-04] MEDS: Tamsulosin HCl 0.4 MG CAP PO SCH ×2 (08:57→20:46)
[2019-10-04] MEDS: Aspirin 81 mg Enteric Coated Tablet PO SCH (08:57)
[2019-10-04] MEDS: Senokot S 8.6-50 MG TAB PO SCH ×2 (08:57→20:46)
[2019-10-04] MEDS: Calcium Carbonate 500 MG TAB PO SCH (08:57)
[2019-10-04] MEDS: Gabapentin 300 MG CAP PO SCH ×3 (08:57→20:46)
[2019-10-04] MEDS: Ferrous Sulfate 325 MG TAB PO SCH ×2 (08:57→16:02)
[2019-10-04] MEDS: Finasteride 5 MG TAB PO SCH (08:58)
[2019-10-04] MEDS: Pantoprazole 40 MG VIAL IVP SCH (08:58)
[2019-10-04] MEDS: Polyethylene Glycol 3350 17 GM Packet PO SCH (08:58)
[2019-10-04] MEDS: Atorvastatin Calcium 10 MG TAB PO SCH (20:46)
[2019-10-05] MEDS: Cefepime 2 GM in Sodium Chloride 0.9% 100 ML IVPB SCH ×2 (05:13→16:03)
[2019-10-05] MEDS: oxyCODONE 5 MG TAB PO PRN ×3 (05:55→20:24)
[2019-10-05] MEDS ORDERED: Sodium Chloride 0.9% 10 ML ONE ×2 (08:14→15:58)
--- NOTE | 2019-10-05 08:20 | PRG ---
DATE OF SERVICE: 10/05/2019 SUBJECTIVE: The patient is an 83-year-old white male, who was admitted to [facility]. He was found to have thoracic spine osteomyelitis and diskitis and was transferred to [facility] for continued IV antibiotics. Subjectively, Mr. Manriquez was found this morning resting in his bed. He was awake and he states he feels good and has no concerns or complaints. He states that his stools have been working well and he thinks he has been eating well. He has no significant pain. He is wondering how much longer he will be here to finish his antibiotics. PHYSICAL EXAMINATION: VITAL SIGNS: Reveal blood pressure this morning 111/67, pulse 51, respirations 20, and T-max 97.6. GENERAL: This is a well-developed, well-nourished, thin white male, in no apparent distress at this time. HEENT: Reveals normocephalic and nontraumatic cranium. Extraocular movements are intact. Nose and throat are dry. NECK: Supple without masses, nodes, or bruits. CHEST: Clear to auscultation. No rales, no rhonchi, no wheezes are heard. HEART: Reveals a regular rate and rhythm without murmurs, gallops, or rubs. ABDOMEN: Scaphoid, soft, nontender without organomegaly. Normal bowel sounds are noted. No rebound or guarding is noted. : Deferred. EXTREMITIES: Reveal no clubbing, cyanosis, or edema. TEACHERS' ASSISTANT: Reveals no focal findings. MUSCULOSKELETAL: Reveals the patient is slowly improving with stamina and strength. IMPRESSION: 1. Osteomyelitis and diskitis of the thoracic spine. 2. Hypertension. 3. Iron-deficiency anemia. 4. Hyperlipidemia. 5. Benign prostatic hyperplasia with his urologist recommending keeping his Melendez catheter in. 6. Improving generalized weakness. PLAN: 1. Continue present IV antibiotics. 2. Continue present medications. 3. Continue physical therapy and occupational therapy. 4. Spinal precautions. 5. Pain management. 6. Healthy heart diet. 7. Continue current medications. 8. We will see the patient again tomorrow. Job ID: [id number]
[2019-10-05] MEDS: Ferrous Sulfate 325 MG TAB PO SCH ×2 (08:59→16:03)
[2019-10-05] MEDS: Senokot S 8.6-50 MG TAB PO SCH ×2 (09:04→20:24)
[2019-10-05] MEDS: Finasteride 5 MG TAB PO SCH (09:04)
[2019-10-05] MEDS: Tamsulosin HCl 0.4 MG CAP PO SCH ×2 (09:04→20:24)
[2019-10-05] MEDS: Aspirin 81 mg Enteric Coated Tablet PO SCH (09:04)
[2019-10-05] MEDS: Gabapentin 300 MG CAP PO SCH ×3 (09:04→20:24)
[2019-10-05] MEDS: Calcium Carbonate 500 MG TAB PO SCH (09:04)
[2019-10-05] MEDS: Polyethylene Glycol 3350 17 GM Packet PO SCH (09:04)
[2019-10-05] MEDS: Pantoprazole 40 MG VIAL IVP SCH (09:04)
[2019-10-05] MEDS: Atorvastatin Calcium 10 MG TAB PO SCH (20:24)
[2019-10-06] MEDS: Cefepime 2 GM in Sodium Chloride 0.9% 100 ML IVPB SCH ×2 (05:07→16:18)
[2019-10-06] MEDS: oxyCODONE 5 MG TAB PO PRN ×3 (06:16→20:21)
[2019-10-06] MEDS ORDERED: Sodium Chloride 0.9% 20 ML ONE (08:12)
[2019-10-06] MEDS: Ferrous Sulfate 325 MG TAB PO SCH ×2 (08:22→16:17)
[2019-10-06] MEDS: Finasteride 5 MG TAB PO SCH (08:22)
[2019-10-06] MEDS: Gabapentin 300 MG CAP PO SCH ×3 (08:22→20:21)
[2019-10-06] MEDS: Pantoprazole 40 MG VIAL IVP SCH (08:22)
[2019-10-06] MEDS: Aspirin 81 mg Enteric Coated Tablet PO SCH (08:22)
[2019-10-06] MEDS: Tamsulosin HCl 0.4 MG CAP PO SCH ×2 (08:22→20:21)
[2019-10-06] MEDS: Senokot S 8.6-50 MG TAB PO SCH ×2 (08:22→20:22)
[2019-10-06] MEDS: Polyethylene Glycol 3350 17 GM Packet PO SCH (08:22)
[2019-10-06] MEDS: Calcium Carbonate 500 MG TAB PO SCH (08:22)
--- NOTE | 2019-10-06 08:22 | PRG ---
DATE OF SERVICE: 10/06/2019 SUBJECTIVE: Mr. Manriquez is a well-developed 83-year-old white male, admitted to [facility] with thoracic spine osteomyelitis and diskitis. He was transferred to [facility] for continued IV antibiotics. The patient states he slept well last night, is doing well this morning and has no concerns or complaints. He knows today is Monday and he is not getting therapy today. He is eating well. He is not constipated. OBJECTIVE: VITAL SIGNS: Today reveal blood pressure 112/57, pulse 80 to 91, respirations 18 to 20, O2 saturation 93% to 94% on room air, T-max 98.2. GENERAL: This is a well-developed, thin white male, in no apparent distress at this time. HEENT: Normocephalic and nontraumatic cranium. Pupils equal, round, and reactive. Extraocular movements are intact. Nose and throat are slightly dry. NECK: Supple without masses, nodes, or bruits. CHEST: Clear to auscultation. No rales, rhonchi, or wheezes are heard. No cough is noted. HEART: Reveals a regular rate and rhythm without murmurs, gallops, or rubs. ABDOMEN: Scaphoid, soft, nontender without organomegaly. Normal bowel sounds noted in all 4 quadrants. No rebound or guarding is noted. : Deferred. EXTREMITIES: Reveal no clubbing, cyanosis, or edema. WRECKER DRIVER: Reveals no focal findings. MUSCULOSKELETAL: Therapy states he slowly improving with stamina and strength. ASSESSMENT: 1. Osteomyelitis and diskitis of thoracic spine. 2. Hypertension. 3. Benign prostatic hypertrophy with urologist recommending to keep his Melendez in. 4. Iron deficiency anemia. 5. Hyperlipidemia. 6. Generalized weakness. PLAN: 1. Continue present IV antibiotics. 2. Continue present medications. 3. Spinal precautions. 4. Pain management per Primary Service. 5. Healthy heart diet. 6. Continue . 7. Continue physical therapy and occupational therapy. 8. Dr. Milan back on-call tonight starting at 2100 hours. Job ID: [id number]
[2019-10-06] MEDS ORDERED: Sodium Chloride 0.9% 10 ML ONE (16:03)
[2019-10-06] MEDS: Atorvastatin Calcium 10 MG TAB PO SCH (20:21)
[2019-10-07] MEDS: Cefepime 2 GM in Sodium Chloride 0.9% 100 ML IVPB SCH ×2 (04:50→17:47)
[2019-10-07] MEDS: oxyCODONE 5 MG TAB PO PRN ×3 (05:25→20:02)
[2019-10-07] MEDS: Ferrous Sulfate 325 MG TAB PO SCH ×2 (10:02→17:47)
[2019-10-07] MEDS: Gabapentin 300 MG CAP PO SCH ×3 (10:03→20:03)
[2019-10-07] MEDS: Tamsulosin HCl 0.4 MG CAP PO SCH ×2 (10:03→20:03)
[2019-10-07] MEDS: Calcium Carbonate 500 MG TAB PO SCH (10:03)
[2019-10-07] MEDS: Aspirin 81 mg Enteric Coated Tablet PO SCH (10:03)
[2019-10-07] MEDS: Polyethylene Glycol 3350 17 GM Packet PO SCH (10:04)
[2019-10-07] MEDS: Senokot S 8.6-50 MG TAB PO SCH ×2 (10:04→20:02)
[2019-10-07] MEDS: Pantoprazole 40 MG VIAL IVP SCH (10:04)
[2019-10-07] MEDS: Finasteride 5 MG TAB PO SCH (10:05)
--- NOTE | 2019-10-07 13:21 | PRG ---
DATE OF SERVICE: 10/07/2019 SUBJECTIVE: Mr. Manriquez is up in his chair. He just finished his lunch. He finished his morning therapy session. Pain is controlled. He is still taking the oxycodone as needed. Last dose was the 5 mg was at 08:00 p.m. and then the 10 mg was at 05:00 a.m. this morning. OBJECTIVE: VITAL SIGNS: He is afebrile. Heart rate 75, respirations 18, oxygen saturation 93% on room air, blood pressure 100/58. CARDIOVASCULAR: S1-S2 plus. RESPIRATORY: Normal vesicular breath sounds. ABDOMEN: Soft, nontender. Bowel sounds heard in all quadrants. EXTREMITIES: Without cyanosis or clubbing. CENTRAL NERVOUS SYSTEM: Improving deconditioning. IMPRESSION: 1. Thoracic spine osteomyelitis and diskitis. 2. Hypertension. 3. Dyslipidemia. 4. Benign prostatic hypertrophy. 5. Improving deconditioning. 6. Iron-deficiency anemia. 7. Chronic pain. PLAN: 1. Continue current medications. 2. Heart-healthy diet. 3. Continue IV antibiotics. 4. Weekly CBC, CMP, CRP, and sedimentation rate. 5. Spinal precautions. 6. Continue therapy. 7. Melendez catheter care. Job ID: [id number]
[2019-10-07] MEDS ORDERED: Sodium Chloride 0.9% 10 ML ONE (18:31)
[2019-10-07] MEDS: Atorvastatin Calcium 10 MG TAB PO SCH (20:02)
[2019-10-08] MEDS: Cefepime 2 GM in Sodium Chloride 0.9% 100 ML IVPB SCH ×2 (05:03→16:52)
[2019-10-08] MEDS: Senokot S 8.6-50 MG TAB PO SCH ×2 (08:46→20:31)
[2019-10-08] MEDS: Ferrous Sulfate 325 MG TAB PO SCH ×2 (08:46→16:52)
[2019-10-08] MEDS: Aspirin 81 mg Enteric Coated Tablet PO SCH (08:46)
[2019-10-08] MEDS: Polyethylene Glycol 3350 17 GM Packet PO SCH (08:46)
[2019-10-08] MEDS: Gabapentin 300 MG CAP PO SCH ×3 (08:46→20:31)
[2019-10-08] MEDS: Calcium Carbonate 500 MG TAB PO SCH (08:46)
[2019-10-08] MEDS: Pantoprazole 40 MG VIAL IVP SCH (08:46)
[2019-10-08] MEDS: Tamsulosin HCl 0.4 MG CAP PO SCH ×2 (08:46→20:31)
[2019-10-08] MEDS: Finasteride 5 MG TAB PO SCH (09:01)
--- NOTE | 2019-10-08 13:41 | PRG ---
DATE OF SERVICE: 10/08/2019 SUBJECTIVE: Mr. Manriquez is resting in bed. He states that he did not eat very well for lunch, but he did have a good breakfast. He is drinking his Ensure. His pain is under control. He is happy with his progress. No family at bedside. Discussed with nursing. OBJECTIVE: VITAL SIGNS: He is afebrile, heart rate 86, respirations 18, oxygen saturation 93% on room air, and blood pressure 114/57. CARDIOVASCULAR SYSTEM: S1 and S2 plus. RESPIRATORY SYSTEM: Normal vesicular breath sounds. ABDOMEN: Soft, nontender. Bowel sounds heard in all quadrants. EXTREMITIES: Without cyanosis or clubbing. IMPRESSION: 1. Thoracic spine osteomyelitis and diskitis, on IV antibiotics. 2. Hypertension. 3. Dyslipidemia. 4. Benign prostatic hypertrophy, requiring Melendez catheter and improving deconditioning. PLAN: 1. Continue current medications including antibiotics. 2. Weekly CBC, CMP, CRP, and sedimentation rate. It is due on . 3. Nutritional support. 4. Spinal precautions. 5. DVT and stress ulcer prophylaxis. 6. Decubitus precaution. 7. Continue therapy. Job ID: [id number]
[2019-10-08] MEDS: oxyCODONE 5 MG TAB PO PRN ×2 (14:04→20:31)
[2019-10-08] MEDS: Atorvastatin Calcium 10 MG TAB PO SCH (20:31)
[2019-10-09] MEDS: Cefepime 2 GM in Sodium Chloride 0.9% 100 ML IVPB SCH ×2 (04:29→16:15)
[2019-10-09] MEDS ORDERED: Sodium Chloride 0.9% 20 ML ONE (08:39)
[2019-10-09] MEDS: Senokot S 8.6-50 MG TAB PO SCH ×2 (08:43→20:27)
[2019-10-09] MEDS: Tamsulosin HCl 0.4 MG CAP PO SCH ×2 (08:43→20:27)
[2019-10-09] MEDS: Calcium Carbonate 500 MG TAB PO SCH (08:43)
[2019-10-09] MEDS: Finasteride 5 MG TAB PO SCH (08:43)
[2019-10-09] MEDS: Ferrous Sulfate 325 MG TAB PO SCH ×2 (08:43→16:15)
[2019-10-09] MEDS: Gabapentin 300 MG CAP PO SCH ×3 (08:43→20:27)
[2019-10-09] MEDS: Aspirin 81 mg Enteric Coated Tablet PO SCH (08:43)
[2019-10-09] MEDS: Pantoprazole 40 MG VIAL IVP SCH (08:43)
[2019-10-09] MEDS: Polyethylene Glycol 3350 17 GM Packet PO SCH (08:44)
--- NOTE | 2019-10-09 13:50 | PRG ---
DATE OF SERVICE: 10/09/2019 SUBJECTIVE: Mr. Manriquez has been moved to room 147. He is up in his chair. He has a spinal brace on. He denies any questions or concerns other than being tired. Pain is pretty well controlled. OBJECTIVE: VITAL SIGNS: He is afebrile. Heart rate 86, respirations 18, oxygen saturation 95% on room air, blood pressure 129/70. CARDIOVASCULAR: S1 and S2 plus. RESPIRATORY: Normal vesicular breath sounds. ABDOMEN: Soft, nontender. Bowel sounds heard in all quadrants. EXTREMITIES: Without cyanosis or clubbing. CENTRAL NERVOUS SYSTEM: Grossly nonfocal. IMPRESSION: 1. Thoracic spine osteomyelitis and diskitis. 2. Hypertension. 3. Dyslipidemia. 4. Benign prostatic hypertrophy. 5. Iron-deficiency anemia. 6. Deconditioning. PLAN: 1. Continue current medications. 2. Heart healthy diet. 3. Check CBC, CMP, CRP, and sedimentation rate tomorrow. 4. DVT prophylaxis with PlexiPulses. 5. Decubitus precautions. 6. Stress ulcer prophylaxis. 7. Spinal precautions. 8. Physical therapy. 9. Nutritional support. Job ID: [id number]
[2019-10-09] MEDS ORDERED: Sodium Chloride 0.9% 10 ML ONE (16:09)
[2019-10-09] MEDS: oxyCODONE 5 MG TAB PO PRN ×2 (16:14→20:26)
[2019-10-09] MEDS: Atorvastatin Calcium 10 MG TAB PO SCH (20:27)
[2019-10-09] MEDS: Nystatin Powder 15 GM BOT TOP SCH (20:30)
[2019-10-10] MEDS: Cefepime 2 GM in Sodium Chloride 0.9% 100 ML IVPB SCH ×2 (04:46→17:24)
[2019-10-10] MEDS: oxyCODONE 5 MG TAB PO PRN ×2 (04:47→08:28)
[2019-10-10 05:47] LABS: #Basophils 0.1 thou/uL (0.0-0.2); #Eosinphils 0.8 thou/uL (0.0-0.7); #Lymphocytes 1.2 thou/uL (1.20-3.40); #Monocytes 0.6 thou/uL (0.11-0.59); #Neutrophils 3.6 thou/uL (1.40-6.50); %Basophils 0.9 % (0.0-1.0); %Eosinophils 12.3 % (0.0-10.0); %Lymphocytes 19.6 % (21.0-51.0); %Monocytes 9.7 % (0.0-10.0); %Neutrophils 57.4 % (42.0-75.0); Hemoglobin 9.9 g/dL (14.0-18.0); Mean Corpuscular HGB CONC 30.5 g/dL (32.0-36.0); Mean Corpuscular Volume 91.8 fL (78.0-98.0); Mean Platelet Volume 8.1 fL (7.4-10.4); Platelet Count 186 thou/uL (130-400); RBC Distribution Width 14.9 % (11.5-14.5); Red Blood Cell (RBC) Count 3.52 mill/uL (4.70-6.10); White Blood Cell (WBC) Count 6.3 thou/uL (4.8-10.8)
[2019-10-10 06:01] LABS: ALT (SGPT) 22 U/L (8-55); AST (SGOT) 17 U/L (5-34); Albumin 2.8 g/dL (3.4-4.8); Alkaline Phosphatase 78 U/L (40-110); Anion Gap 11 mmol/L (10-20); BUN (Urea Nitrogen) 21 mg/dL (8.4-25.7); Bilirubin, Total 0.3 mg/dL (0.2-1.2); CRP (Inflammatory) 1.94 mg/dL (= or < 0.5); Calc. Creatinine Clearance 85 mL/min (70-130); Calcium 8.3 mg/dL (7.8-10.44); Carbon Dioxide 25 mmol/L (23-31); Chloride 104 mmol/L (98-107); Estimated GFR-MDRD Greater than 90; Globulin 2.7 g/dL (2.4-3.5); Glucose 103 mg/dL (83-110); Potassium 3.7 mmol/L (3.5-5.1); Protein, Total 5.5 g/dL (5.8-8.1); Sodium 136 mmol/L (136-145)
[2019-10-10] MEDS ORDERED: Sodium Chloride 0.9% 20 ML ONE (08:22)
[2019-10-10] MEDS: Senokot S 8.6-50 MG TAB PO SCH ×2 (08:29→20:52)
[2019-10-10] MEDS: Gabapentin 300 MG CAP PO SCH ×3 (08:29→20:53)
[2019-10-10] MEDS: Tamsulosin HCl 0.4 MG CAP PO SCH ×2 (08:29→20:53)
[2019-10-10] MEDS: Finasteride 5 MG TAB PO SCH (08:29)
[2019-10-10] MEDS: Calcium Carbonate 500 MG TAB PO SCH (08:29)
[2019-10-10] MEDS: Ferrous Sulfate 325 MG TAB PO SCH ×2 (08:29→17:24)
[2019-10-10] MEDS: Polyethylene Glycol 3350 17 GM Packet PO SCH (08:29)
[2019-10-10] MEDS: Nystatin Powder 15 GM BOT TOP SCH (08:29)
[2019-10-10] MEDS: Aspirin 81 mg Enteric Coated Tablet PO SCH (08:29)
[2019-10-10] MEDS: Pantoprazole 40 MG VIAL IVP SCH (08:30)
--- NOTE | 2019-10-10 13:20 | PRG ---
DATE OF SERVICE: 10/10/2019 SUBJECTIVE: Mr. Manriquez is resting in bed. He denies any concerns. Tolerating his therapy. Apparently, his called Dr. Hernandez, urologist with questions about the Melendez catheter. Dr. Hernandez called me yesterday evening and said that she was okay with us removing the Melendez and doing intermittent catheterization with bladder scans q.6 for postvoid residuals greater than 400. I talked to the patient today and he states that he did that before and he failed and it was very frustrating and he wants to leave the catheter in. Thankfully, the called at that time and I talked to her and she states that it was a miscommunication and she really just wanted to ask Dr. Hernandez opinion about a longstanding Melendez and that she was okay with whatever Mr. Manriquez wants, so the plan is to leave the Melendez in for now. OBJECTIVE: VITAL SIGNS: He is afebrile. Heart rate 76, respirations 18, oxygen saturation 93% on room air, blood pressure is 107/57. CARDIOVASCULAR SYSTEM: S1 and S2 plus. RESPIRATORY SYSTEM: Normal vesicular breath sounds. ABDOMEN: Soft, nontender. Bowel sounds heard in all quadrants. EXTREMITIES: Without cyanosis or clubbing. CENTRAL NERVOUS SYSTEM: Improving deconditioning. LABORATORY VALUES: Show a white count of 6.3, H and H are 9.9 and 32. Sedimentation rate is 15. Sodium 136, potassium 3.7, BUN and creatinine are 21 and 0.65, with a CRP of 1.94. IMPRESSION: 1. Thoracic spine osteomyelitis and diskitis. 2. Benign prostatic hypertrophy with urinary retention requiring Melendez catheter placement. 3. Hypertension. 4. Dyslipidemia. 5. Iron deficiency anemia. 6. Improving deconditioning. PLAN: 1. Continue current medications. 2. Heart healthy diet. 3. Melendez catheter care. 4. DVT prophylaxis. 5. Stress ulcer prophylaxis. 6. Continue therapy. 7. Routine laboratory values. 8. Discussed with the patient and spouse in detail. All questions answered. Job ID: [id number]
[2019-10-10] MEDS: Acetaminophen 500 MG TAB PO PRN (20:52)
[2019-10-10] MEDS: Atorvastatin Calcium 10 MG TAB PO SCH (20:53)
[2019-10-11] MEDS: Cefepime 2 GM in Sodium Chloride 0.9% 100 ML IVPB SCH ×2 (05:22→16:36)
[2019-10-11] MEDS: Tamsulosin HCl 0.4 MG CAP PO SCH ×2 (08:18→21:18)
[2019-10-11] MEDS: Gabapentin 300 MG CAP PO SCH ×3 (08:18→21:18)
[2019-10-11] MEDS: oxyCODONE 5 MG TAB PO PRN (08:18)
[2019-10-11] MEDS: Senokot S 8.6-50 MG TAB PO SCH ×2 (08:18→21:18)
[2019-10-11] MEDS: Calcium Carbonate 500 MG TAB PO SCH (08:18)
[2019-10-11] MEDS: Ferrous Sulfate 325 MG TAB PO SCH ×2 (08:18→16:37)
[2019-10-11] MEDS: Pantoprazole 40 MG VIAL IVP SCH (08:19)
[2019-10-11] MEDS: Finasteride 5 MG TAB PO SCH (08:19)
[2019-10-11] MEDS: Aspirin 81 mg Enteric Coated Tablet PO SCH (08:19)
[2019-10-11] MEDS: Polyethylene Glycol 3350 17 GM Packet PO SCH (08:19)
--- NOTE | 2019-10-11 09:29 | PRG ---
DATE OF SERVICE: 10/11/2019 SUBJECTIVE: Mr. Manriquez is resting in bed. He just finished breakfast. He states he is tired. He is happy with his progress. He denies any questions or concerns. Pain is controlled. OBJECTIVE: VITAL SIGNS: He is afebrile, heart rate 92, respirations 20, oxygen saturation 93% on room air, and blood pressure 122/64. CARDIOVASCULAR: S1 and S2 plus. RESPIRATORY: Normal vesicular breath sounds. ABDOMEN: Soft, nontender. Bowel sounds heard in all quadrants. EXTREMITIES: Without cyanosis or clubbing. CENTRAL NERVOUS SYSTEM: Improving deconditioning. IMPRESSION: 1. Thoracic spine osteomyelitis and diskitis. 2. Hypertension. 3. Dyslipidemia. 4. Benign prostatic hypertrophy. 5. Anemia, iron deficiency. 6. Improving deconditioning. PLAN: 1. Continue current medications. 2. Heart-healthy diet. 3. Melendez catheter care. 4. DVT prophylaxis with PlexiPulses. 5. Decubitus precautions. 6. Stress ulcer prophylaxis. 7. Spinal precautions. 8. Weekly CBC, CRP, CMP, and sedimentation rate. 9. Continue antibiotics. 10. Physical therapy. 11. Dr. Randolph on-call this weekend. Job ID: [id number]
[2019-10-11] MEDS ORDERED: Sodium Chloride 0.9% 20 ML ONE (16:31)
[2019-10-11] MEDS: Acetaminophen 500 MG TAB PO PRN (21:18)
[2019-10-11] MEDS: Atorvastatin Calcium 10 MG TAB PO SCH (21:18)
[2019-10-12] MEDS: Cefepime 2 GM in Sodium Chloride 0.9% 100 ML IVPB SCH ×2 (05:14→16:59)
[2019-10-12] MEDS ORDERED: Sodium Chloride 0.9% 10 ML ONE ×2 (07:38→16:48)
[2019-10-12] MEDS: Finasteride 5 MG TAB PO SCH (08:03)
[2019-10-12] MEDS: Senokot S 8.6-50 MG TAB PO SCH ×2 (08:03→21:12)
[2019-10-12] MEDS: oxyCODONE 5 MG TAB PO PRN ×2 (08:03→21:12)
[2019-10-12] MEDS: Gabapentin 300 MG CAP PO SCH ×3 (08:03→21:12)
[2019-10-12] MEDS: Calcium Carbonate 500 MG TAB PO SCH (08:03)
[2019-10-12] MEDS: Aspirin 81 mg Enteric Coated Tablet PO SCH (08:03)
[2019-10-12] MEDS: Polyethylene Glycol 3350 17 GM Packet PO SCH (08:03)
[2019-10-12] MEDS: Ferrous Sulfate 325 MG TAB PO SCH ×2 (08:03→16:59)
[2019-10-12] MEDS: Tamsulosin HCl 0.4 MG CAP PO SCH ×2 (08:03→21:12)
[2019-10-12] MEDS: Pantoprazole 40 MG VIAL IVP SCH (08:04)
--- NOTE | 2019-10-12 16:19 | PRG ---
DATE OF SERVICE: 10/12/[address] Ruthie Simpson. SUBJECTIVE: The patient is lying in the bed, feels well. States he is much stronger over the last week. He has no complaints. His pain is greatly improved. OBJECTIVE: VITAL SIGNS: Show temperature 97.7, pulse 80, respirations 22, O2 saturations 92% on room air, blood pressure 129/59. HEENT: Pupils are equal, round, and reactive to light and accommodation. Sclerae are anicteric. Conjunctivae are pale. ABDOMEN: Soft and nontender. SKIN/EXTREMITIES: Display no edema, clubbing, or cyanosis. ASSESSMENT: 1. Resolving thoracic spine osteomyelitis, on IV cefepime until November 04. 2. Hypertension, controlled to goal. 3. Benign prostatic hypertrophy, stable. 4. Improving deconditioning. PLAN: 1. Continue PT and OT. 2. Continue pain relief as ordered by Dr. Milan. 3. Continue cefepime and do weekly CBCs, CRP, CMP. 4. Continue DVT prophylaxis with . He is unable to use full-dose anticoagulation. Job ID: [id number]
[2019-10-12] MEDS: Atorvastatin Calcium 10 MG TAB PO SCH (21:12)
[2019-10-13] MEDS: Cefepime 2 GM in Sodium Chloride 0.9% 100 ML IVPB SCH ×2 (05:39→16:22)
[2019-10-13] MEDS ORDERED: Sodium Chloride 0.9% 10 ML ONE ×2 (07:34→16:17)
[2019-10-13] MEDS: Pantoprazole 40 MG VIAL IVP SCH (08:18)
[2019-10-13] MEDS: Polyethylene Glycol 3350 17 GM Packet PO SCH (08:18)
[2019-10-13] MEDS: Finasteride 5 MG TAB PO SCH (08:18)
[2019-10-13] MEDS: Aspirin 81 mg Enteric Coated Tablet PO SCH (08:19)
[2019-10-13] MEDS: Calcium Carbonate 500 MG TAB PO SCH (08:19)
[2019-10-13] MEDS: Ferrous Sulfate 325 MG TAB PO SCH ×2 (08:19→16:21)
[2019-10-13] MEDS: Senokot S 8.6-50 MG TAB PO SCH ×2 (08:19→21:10)
[2019-10-13] MEDS: Gabapentin 300 MG CAP PO SCH ×3 (08:19→21:10)
[2019-10-13] MEDS: Tamsulosin HCl 0.4 MG CAP PO SCH ×2 (08:19→21:10)
[2019-10-13] MEDS: oxyCODONE 5 MG TAB PO PRN (08:38)
--- NOTE | 2019-10-13 18:25 | PRG ---
DATE OF SERVICE: 10/13/2019 This is patient of Dr. Ruthie Simpson. SUBJECTIVE: The patient lying in the bed, resting, appears in no distress, but states he is still having pain in his back. OBJECTIVE: VITAL SIGNS: Show temperature 96.5, pulse 77, respirations 20, O2 saturations 93% on room air, and blood pressure 109/62. LUNGS: Clear. CARDIAC: Showed regular rhythm. ABDOMEN: Soft and nontender. SKIN AND EXTREMITIES: Showed no edema, clubbing, or cyanosis. Persistent tenderness in mid back. LABORATORY DATA: Sedimentation rate over the last three times has been less than 20. ASSESSMENT: Improving deconditioning. Resolving thoracic spine osteomyelitis with persistent, but decreased pain, on IV antibiotics until November 04. Hypertension, controlled to goal. Benign prostatic hypertrophy, stable. PLAN: 1. Continue IV cefepime. Continue DVT prophylaxis. 2. Continue Melendez catheter care. 3. Continue PT, OT. Job ID: [id number]
[2019-10-13] MEDS: Acetaminophen 500 MG TAB PO PRN (21:10)
[2019-10-13] MEDS: Atorvastatin Calcium 10 MG TAB PO SCH (21:10)
[2019-10-14] MEDS: Cefepime 2 GM in Sodium Chloride 0.9% 100 ML IVPB SCH ×2 (05:30→16:43)
[2019-10-14] MEDS: Calcium Carbonate 500 MG TAB PO SCH (08:06)
[2019-10-14] MEDS: Tamsulosin HCl 0.4 MG CAP PO SCH ×2 (08:06→20:40)
[2019-10-14] MEDS: oxyCODONE 5 MG TAB PO PRN (08:07)
[2019-10-14] MEDS: Senokot S 8.6-50 MG TAB PO SCH ×2 (08:07→20:40)
[2019-10-14] MEDS: Ferrous Sulfate 325 MG TAB PO SCH ×2 (08:07→16:43)
[2019-10-14] MEDS: Finasteride 5 MG TAB PO SCH (08:07)
[2019-10-14] MEDS: Gabapentin 300 MG CAP PO SCH ×3 (08:07→20:39)
[2019-10-14] MEDS: Aspirin 81 mg Enteric Coated Tablet PO SCH (08:07)
[2019-10-14] MEDS: Pantoprazole 40 MG VIAL IVP SCH (08:08)
[2019-10-14] MEDS: Polyethylene Glycol 3350 17 GM Packet PO SCH (08:09)
--- NOTE | 2019-10-14 13:32 | PRG ---
DATE OF SERVICE: 10/14/2019 SUBJECTIVE: Mr. Manriquez is resting in bed. He just finished his lunch. He denies any questions or concerns. He did participate with therapy this morning. He is still requiring oxycodone for breakthrough pain. OBJECTIVE: VITAL SIGNS: He is afebrile. Heart rate 88, respirations 20, oxygen saturation 93% on room air, blood pressure 114/70. CARDIOVASCULAR: S1, S2 plus. RESPIRATORY: Normal vesicular breath sounds. ABDOMEN: Soft, nontender. Bowel sounds heard in all quadrants. EXTREMITIES: Without cyanosis or clubbing. CENTRAL NERVOUS SYSTEM: Slowly improving deconditioning. IMPRESSION: 1. Thoracic spine osteomyelitis and diskitis. 2. Hypertension. 3. Dyslipidemia. 4. Benign prostatic hypertrophy with urinary retention. 5. Iron-deficiency anemia. 6. Deconditioning. PLAN: 1. Continue current medications. 2. Heart-healthy diet. 3. Monitor blood pressure and adjust medications as needed. 4. Spinal precautions. 5. Continue antibiotics. 6. Weekly CBC, CMP, CRP, and sedimentation rate. 7. DVT prophylaxis with PlexiPulses. 8. Decubitus precautions. 9. Stress ulcer prophylaxis. 10. Physical therapy. 11. Melendez catheter care. Job ID: [id number]
[2019-10-14] MEDS: Atorvastatin Calcium 10 MG TAB PO SCH (20:40)
[2019-10-14] MEDS: Acetaminophen 500 MG TAB PO PRN (20:40)
[2019-10-15] MEDS: Cefepime 2 GM in Sodium Chloride 0.9% 100 ML IVPB SCH ×2 (05:39→16:45)
[2019-10-15] MEDS ORDERED: Sodium Chloride 0.9% 20 ML ONE (08:57)
[2019-10-15] MEDS: Aspirin 81 mg Enteric Coated Tablet PO SCH (09:10)
[2019-10-15] MEDS: Polyethylene Glycol 3350 17 GM Packet PO SCH (09:10)
[2019-10-15] MEDS: Senokot S 8.6-50 MG TAB PO SCH ×2 (09:10→21:34)
[2019-10-15] MEDS: Ferrous Sulfate 325 MG TAB PO SCH ×2 (09:10→16:45)
[2019-10-15] MEDS: Calcium Carbonate 500 MG TAB PO SCH (09:10)
[2019-10-15] MEDS: Gabapentin 300 MG CAP PO SCH ×3 (09:11→21:33)
[2019-10-15] MEDS: Finasteride 5 MG TAB PO SCH (09:11)
[2019-10-15] MEDS: Tamsulosin HCl 0.4 MG CAP PO SCH ×2 (09:11→21:33)
[2019-10-15] MEDS: Pantoprazole 40 MG VIAL IVP SCH (09:12)
[2019-10-15] MEDS: oxyCODONE 5 MG TAB PO PRN (09:13)
--- NOTE | 2019-10-15 13:53 | PRG ---
DATE OF SERVICE: 10/15/2019 SUBJECTIVE: Mr. Manriquez is resting in bed. He denies any complaints other than feeling tired. He continues to need to take his oxycodone p.r.n. He states that he would like to try the increase in fentanyl, so we will change it to 50 mcg patch. Apparently, that was what he was on at home. OBJECTIVE: VITAL SIGNS: He is afebrile, heart rate 88, respirations 20, oxygen saturation 93% on room air, blood pressure 120/68. CARDIOVASCULAR: S1 and S2 plus. RESPIRATORY: Normal vesicular breath sounds. ABDOMEN: Soft, nontender. Bowel sounds heard in all quadrants. EXTREMITIES: Without cyanosis or clubbing. CENTRAL NERVOUS SYSTEM: Improving deconditioning. IMPRESSION: 1. Hypertension. 2. Dyslipidemia. 3. Benign prostatic hypertrophy, requiring Melendez catheter placement. 4. Thoracic spine osteomyelitis and diskitis. 5. Chronic pain. PLAN: 1. Continue current medications. 2. Heart healthy diet. 3. Monitor blood pressure and adjust medications. 4. Melendez catheter care. 5. Increased fentanyl patch to 50 mcg. 6. Spinal precautions and incision care. 7. Physical therapy. 8. Routine laboratory values. Job ID: [id number]
[2019-10-15] MEDS: fentaNYL 50 mcg/hour Patch TD SCH (15:03)
[2019-10-15] MEDS: Atorvastatin Calcium 10 MG TAB PO SCH (21:34)
[2019-10-16] MEDS: Cefepime 2 GM in Sodium Chloride 0.9% 100 ML IVPB SCH ×2 (04:24→16:47)
[2019-10-16] MEDS: oxyCODONE 5 MG TAB PO PRN ×4 (04:26→21:32)
[2019-10-16] MEDS ORDERED: Sodium Chloride 0.9% 10 ML ONE ×2 (07:40→16:36)
[2019-10-16] MEDS: Polyethylene Glycol 3350 17 GM Packet PO SCH (08:15)
[2019-10-16] MEDS: Finasteride 5 MG TAB PO SCH (08:16)
[2019-10-16] MEDS: Gabapentin 300 MG CAP PO SCH ×3 (08:16→21:25)
[2019-10-16] MEDS: Senokot S 8.6-50 MG TAB PO SCH ×2 (08:16→21:25)
[2019-10-16] MEDS: Aspirin 81 mg Enteric Coated Tablet PO SCH (08:16)
[2019-10-16] MEDS: Calcium Carbonate 500 MG TAB PO SCH (08:16)
[2019-10-16] MEDS: Tamsulosin HCl 0.4 MG CAP PO SCH ×2 (08:16→21:25)
[2019-10-16] MEDS: Ferrous Sulfate 325 MG TAB PO SCH ×2 (08:16→16:47)
[2019-10-16] MEDS: Pantoprazole 40 MG VIAL IVP SCH (08:17)
--- NOTE | 2019-10-16 13:35 | PRG ---
DATE OF SERVICE: 10/16/2019 SUBJECTIVE: Mr. Manriquez is doing well, but he is in pain. He states that he did not get any pain medicines prior to therapy. Discussed with nursing and made sure that they make a note and give one oxycodone 30 minutes before therapy. His fentanyl patch was increased to 50 mcg yesterday. OBJECTIVE: VITAL SIGNS: He is afebrile, heart rate 77, respirations 18, oxygen saturation 95% on room air, and blood pressure 109/57. CARDIOVASCULAR SYSTEM: S1 and S2 plus. RESPIRATORY SYSTEM: Normal vesicular breath sounds. ABDOMEN: Soft and nontender. Bowel sounds heard in all quadrants. EXTREMITIES: Without cyanosis or clubbing. CENTRAL NERVOUS SYSTEM: Improving deconditioning. IMPRESSION: 1. Thoracic spine diskitis and osteomyelitis. 2. Hypertension. 3. Dyslipidemia. 4. Benign prostatic hyperplasia. 5. Chronic pain. 6. Iron deficiency anemia. PLAN: 1. Continue current medications. 2. Recheck CBC, CMP, CRP, and sedimentation rate tomorrow. 3. Heart healthy diet. 4. Melendez catheter care. 5. Spinal precautions. 6. DVT prophylaxis with PlexiPulses. 7. Decubitus precautions. 8. Stress ulcer prophylaxis. 9. Continue therapy. 10. Go on oxycodone 30 minutes before therapy. Discussed with nursing. Job ID: [id number]
[2019-10-16] MEDS: Atorvastatin Calcium 10 MG TAB PO SCH (21:25)
[2019-10-16] MEDS: Nystatin Powder 15 GM BOT TOP SCH (21:25)
[2019-10-17] MEDS: Cefepime 2 GM in Sodium Chloride 0.9% 100 ML IVPB SCH ×2 (04:45→16:06)
[2019-10-17 05:45] LABS: #Basophils 0.1 thou/uL (0.0-0.2); #Eosinphils 0.7 thou/uL (0.0-0.7); #Lymphocytes 1.4 thou/uL (1.20-3.40); #Monocytes 0.7 thou/uL (0.11-0.59); #Neutrophils 4.4 thou/uL (1.40-6.50); %Basophils 1.1 % (0.0-1.0); %Eosinophils 9.5 % (0.0-10.0); %Lymphocytes 18.5 % (21.0-51.0); %Monocytes 10.2 % (0.0-10.0); %Neutrophils 60.8 % (42.0-75.0); Hemoglobin 11.3 g/dL (14.0-18.0); Mean Corpuscular HGB CONC 30.1 g/dL (32.0-36.0); Mean Corpuscular Hemoglobin 27.7 pg (27.0-31.0); Mean Corpuscular Volume 91.9 fL (78.0-98.0); Mean Platelet Volume 8.7 fL (7.4-10.4); Platelet Count 187 thou/uL (130-400); RBC Distribution Width 15.1 % (11.5-14.5); Red Blood Cell (RBC) Count 4.09 mill/uL (4.70-6.10); White Blood Cell (WBC) Count 7.3 thou/uL (4.8-10.8)
[2019-10-17 05:58] LABS: ALT (SGPT) 30 U/L (8-55); AST (SGOT) 25 U/L (5-34); Alkaline Phosphatase 75 U/L (40-110); Anion Gap 14 mmol/L (10-20); BUN (Urea Nitrogen) 24 mg/dL (8.4-25.7); Bilirubin, Total 0.3 mg/dL (0.2-1.2); CRP (Inflammatory) 0.64 mg/dL (= or < 0.5); Calc. Creatinine Clearance 74 mL/min (70-130); Calcium 8.4 mg/dL (7.8-10.44); Carbon Dioxide 25 mmol/L (23-31); Chloride 104 mmol/L (98-107); Estimated GFR-MDRD Greater than 90; Globulin 2.9 g/dL (2.4-3.5); Glucose 100 mg/dL (83-110); Potassium 4.1 mmol/L (3.5-5.1); Protein, Total 5.9 g/dL (5.8-8.1); Sodium 139 mmol/L (136-145)
[2019-10-17] MEDS: oxyCODONE 5 MG TAB PO PRN (06:46)
[2019-10-17] MEDS ORDERED: Sodium Chloride 0.9% 10 ML ONE ×2 (07:29→16:02)
[2019-10-17] MEDS: Tamsulosin HCl 0.4 MG CAP PO SCH ×2 (08:16→20:56)
[2019-10-17] MEDS: Finasteride 5 MG TAB PO SCH (08:16)
[2019-10-17] MEDS: Aspirin 81 mg Enteric Coated Tablet PO SCH (08:16)
[2019-10-17] MEDS: Ferrous Sulfate 325 MG TAB PO SCH ×2 (08:16→16:06)
[2019-10-17] MEDS: Gabapentin 300 MG CAP PO SCH ×3 (08:17→20:56)
[2019-10-17] MEDS: Pantoprazole 40 MG VIAL IVP SCH (08:17)
[2019-10-17] MEDS: Senokot S 8.6-50 MG TAB PO SCH ×2 (08:17→20:56)
[2019-10-17] MEDS: Calcium Carbonate 500 MG TAB PO SCH (08:17)
[2019-10-17] MEDS: Polyethylene Glycol 3350 17 GM Packet PO SCH (08:18)
[2019-10-17] MEDS: Nystatin Powder 15 GM BOT TOP SCH (08:19)
--- NOTE | 2019-10-17 14:08 | PRG ---
DATE OF SERVICE: 10/17/2019 SUBJECTIVE: Mr. Manriquez is sleeping, but arousable. I spoke with the Speech Therapy and the patient apparently has issues when he tries to eat lying down. When he is sitting up, he has no problems. I informed the patient about the risks of aspiration and he understands. No family at bedside. OBJECTIVE: VITAL SIGNS: He is afebrile. Heart rate 80, respirations 18, oxygen saturation 91% on room air, blood pressure 107/61. CARDIOVASCULAR SYSTEM: S1 and S2 plus. RESPIRATORY SYSTEM: Normal vesicular breath sounds. ABDOMEN: Soft and nontender. Bowel sounds heard in all quadrants. EXTREMITIES: Without cyanosis or clubbing. CENTRAL NERVOUS SYSTEM: Improving deconditioning, gradual. LABORATORY VALUES: White count is 7.3, H and H are 11.3 and 37.6 with a sedimentation rate of 16, which is the same. Sodium 139, potassium 4.1, BUN and creatinine are 24 and 0.69 with a CRP of 0.64, which is much improved. IMPRESSION: 1. Thoracic spine osteomyelitis and diskitis. 2. Hypertension. 3. Dyslipidemia. 4. Benign prostatic hypertrophy with urinary retention. 5. Chronic pain. 6. Mild dysphagia. 7. Iron deficiency anemia, improving. PLAN: 1. Continue current medications. 2. Heart healthy diet. 3. Spinal precautions. 4. Continue antibiotics. 5. Aspiration precautions. 6. Melendez catheter care. 7. DVT prophylaxis with PlexiPulses. 8. Decubitus precautions. 9. Stress ulcer prophylaxis. 10. Physical therapy. Job ID: [id number]
[2019-10-17] MEDS: Atorvastatin Calcium 10 MG TAB PO SCH (20:56)
[2019-10-18] MEDS: Cefepime 2 GM in Sodium Chloride 0.9% 100 ML IVPB SCH ×2 (05:08→16:46)
[2019-10-18] MEDS ORDERED: Sodium Chloride 0.9% 10 ML ONE ×2 (05:41→08:23)
[2019-10-18] MEDS: oxyCODONE 5 MG TAB PO PRN (08:52)
[2019-10-18] MEDS: Finasteride 5 MG TAB PO SCH (08:53)
[2019-10-18] MEDS: Gabapentin 300 MG CAP PO SCH ×3 (08:53→21:06)
[2019-10-18] MEDS: Tamsulosin HCl 0.4 MG CAP PO SCH ×2 (08:53→21:05)
[2019-10-18] MEDS: Polyethylene Glycol 3350 17 GM Packet PO SCH (08:53)
[2019-10-18] MEDS: Ferrous Sulfate 325 MG TAB PO SCH ×2 (08:53→16:51)
[2019-10-18] MEDS: Aspirin 81 mg Enteric Coated Tablet PO SCH (08:53)
[2019-10-18] MEDS: Calcium Carbonate 500 MG TAB PO SCH (08:53)
[2019-10-18] MEDS: Senokot S 8.6-50 MG TAB PO SCH ×2 (08:53→21:06)
[2019-10-18] MEDS: Pantoprazole 40 MG VIAL IVP SCH (08:54)
--- NOTE | 2019-10-18 09:38 | PRG ---
DATE OF SERVICE: 10/18/2019 SUBJECTIVE: Mr. Manriquez is doing the same. Denies any complaints. His spouse is in the room. Informed them that his CRP is down to 0.64. I also advised them about my conversation with Speech Therapy, where they state that he is under aspiration risk if he tries to eat lying down and he needs to sit up for all his meals. He continues to have breakthrough pain, but is not asking for his pain medications and I again tried to explain to him that I really cannot keep his pain well controlled just with the fentanyl patch without causing him significant grogginess and somnolence. OBJECTIVE: VITAL SIGNS: He is afebrile. Heart rate 76, respirations 22, oxygen saturation 92% on room air, blood pressure 112/61. CARDIOVASCULAR: S1 and S2 plus. RESPIRATORY: Normal vesicular breath sounds. ABDOMEN: Soft, nontender. Bowel sounds heard in all quadrants. Melendez catheter in place. EXTREMITIES: Without cyanosis or clubbing. CENTRAL NERVOUS SYSTEM: Improving deconditioning. IMPRESSION: 1. Thoracic spine, osteomyelitis, and diskitis. 2. Iron deficiency anemia. 3. Hypertension. 4. Dyslipidemia. 5. Benign prostatic hypertrophy with urinary retention. 6. Dysphagia. 7. Deconditioning and chronic pain. PLAN: 1. Continue current medications. 2. Heart healthy diet. 3. Encourage the patient to sit up for all his meals. 4. Continue therapy. 5. Spinal precaution. 6. Antibiotics until November 04. 7. He apparently has an appoint with for skin cancer removal later this month. I advised them to make sure they informed nursing as they coordinate the transportation. Job ID: [id number]
[2019-10-18] MEDS: fentaNYL 50 mcg/hour Patch TD SCH (13:52)
[2019-10-18] MEDS ORDERED: Sodium Chloride 0.9% 20 ML ONE (16:16)
[2019-10-18] MEDS: Atorvastatin Calcium 10 MG TAB PO SCH (21:06)
[2019-10-19] MEDS: Cefepime 2 GM in Sodium Chloride 0.9% 100 ML IVPB SCH ×2 (05:23→16:07)
[2019-10-19] MEDS: Ferrous Sulfate 325 MG TAB PO SCH ×2 (09:23→16:07)
[2019-10-19] MEDS: Polyethylene Glycol 3350 17 GM Packet PO SCH (09:24)
[2019-10-19] MEDS: Calcium Carbonate 500 MG TAB PO SCH (09:24)
[2019-10-19] MEDS: Finasteride 5 MG TAB PO SCH (09:24)
[2019-10-19] MEDS: Pantoprazole 40 MG VIAL IVP SCH (09:24)
[2019-10-19] MEDS: Aspirin 81 mg Enteric Coated Tablet PO SCH (09:24)
[2019-10-19] MEDS: Tamsulosin HCl 0.4 MG CAP PO SCH ×2 (09:24→20:26)
[2019-10-19] MEDS: Senokot S 8.6-50 MG TAB PO SCH ×2 (09:24→20:26)
[2019-10-19] MEDS: Gabapentin 300 MG CAP PO SCH ×3 (09:24→20:27)
--- NOTE | 2019-10-19 17:42 | PRG ---
DATE OF SERVICE: 10/19/2019 SUBJECTIVE: Mr. Manriquez is sleeping, but arousable. He denies any questions or concerns. Tolerating his antibiotics. No fever or chills. No diarrhea. OBJECTIVE: VITAL SIGNS: He is afebrile. Heart rate 80, respirations 18, oxygen saturation 94% on room air, blood pressure 114/63. CARDIOVASCULAR: S1 and S2 plus. RESPIRATORY: Normal vesicular breath sounds. ABDOMEN: Soft and nontender. Bowel sounds heard in all quadrants. EXTREMITIES: Without cyanosis or clubbing. CENTRAL NERVOUS SYSTEM: Grossly nonfocal. IMPRESSION: 1. Thoracic spine osteomyelitis and diskitis. 2. Iron deficiency anemia. 3. Hypertension. 4. Dyslipidemia. 5. Benign prostatic hypertrophy with urinary retention. 6. Chronic pain. PLAN: 1. Continue current medications. 2. Heart-healthy diet with aspiration precautions. 3. Spinal precautions with bracing. 4. Continue antibiotics. 5. Weekly CBC, CRP, CMP, and sedimentation rate. 6. Pain control. 7. DVT and stress ulcer prophylaxis. 8. Decubitus precautions. 9. Melendez catheter care. 10. Physical therapy. Job ID: [id number]
[2019-10-19] MEDS: Atorvastatin Calcium 10 MG TAB PO SCH (20:26)
[2019-10-20] MEDS: Cefepime 2 GM in Sodium Chloride 0.9% 100 ML IVPB SCH ×2 (05:23→17:00)
[2019-10-20] MEDS: Ferrous Sulfate 325 MG TAB PO SCH ×2 (08:59→17:01)
[2019-10-20] MEDS: Aspirin 81 mg Enteric Coated Tablet PO SCH (09:06)
[2019-10-20] MEDS: Senokot S 8.6-50 MG TAB PO SCH ×2 (09:07→20:32)
[2019-10-20] MEDS: Finasteride 5 MG TAB PO SCH (09:08)
[2019-10-20] MEDS: Gabapentin 300 MG CAP PO SCH ×3 (09:08→20:32)
[2019-10-20] MEDS: Calcium Carbonate 500 MG TAB PO SCH (09:08)
[2019-10-20] MEDS: Tamsulosin HCl 0.4 MG CAP PO SCH ×2 (09:09→20:32)
[2019-10-20] MEDS: Pantoprazole 40 MG VIAL IVP SCH (09:10)
[2019-10-20] MEDS: Polyethylene Glycol 3350 17 GM Packet PO SCH (09:11)
--- NOTE | 2019-10-20 12:23 | PRG ---
DATE OF SERVICE: 10/20/2019 SUBJECTIVE: Mr. Manriquez is doing well. He is resting in bed. Denies any concerns. I encouraged him to sit up for lunch and then sit up for a little while longer. He thought it was the evening. OBJECTIVE: VITAL SIGNS: He is afebrile, heart rate 85, respirations 18, oxygen saturation 93% on room air, blood pressure 132/69. CARDIOVASCULAR SYSTEM: S1 and S2 plus. RESPIRATORY SYSTEM: Normal vesicular breath sounds. ABDOMEN: Soft and nontender. Bowel sounds heard in all quadrants. EXTREMITIES: Without cyanosis or clubbing. CENTRAL NERVOUS SYSTEM: Improving deconditioning. IMPRESSION: 1. Thoracic spine osteomyelitis and diskitis. 2. Hypertension. 3. Dyslipidemia. 4. Benign prostatic hypertrophy. 5. Iron deficiency anemia. 6. Deconditioning. 7. Chronic pain. PLAN: 1. Continue current medications. 2. Heart healthy diet. 3. Spinal precautions. 4. We will enter an order stating the patient needs to be up in his chair for all his meals. 5. DVT prophylaxis with PlexiPulses. 6. Decubitus precaution. 7. Stress ulcer prophylaxis. 8. Weekly CBC, CMP, CRP, and sedimentation rate. Job ID: [id number]
[2019-10-20] MEDS: oxyCODONE 5 MG TAB PO PRN ×2 (15:51→20:32)
[2019-10-20] MEDS ORDERED: Sodium Chloride 0.9% 10 ML ONE (16:58)
[2019-10-20] MEDS: Atorvastatin Calcium 10 MG TAB PO SCH (20:32)
[2019-10-21] MEDS: Cefepime 2 GM in Sodium Chloride 0.9% 100 ML IVPB SCH ×2 (04:44→17:50)
[2019-10-21] MEDS: oxyCODONE 5 MG TAB PO PRN ×3 (04:53→20:46)
[2019-10-21] MEDS: Ferrous Sulfate 325 MG TAB PO SCH ×2 (08:59→17:50)
[2019-10-21] MEDS: Aspirin 81 mg Enteric Coated Tablet PO SCH (08:59)
[2019-10-21] MEDS: Pantoprazole 40 MG VIAL IVP SCH (09:00)
[2019-10-21] MEDS: Calcium Carbonate 500 MG TAB PO SCH (09:00)
[2019-10-21] MEDS: Senokot S 8.6-50 MG TAB PO SCH ×2 (09:00→20:46)
[2019-10-21] MEDS: Finasteride 5 MG TAB PO SCH (09:00)
[2019-10-21] MEDS: Tamsulosin HCl 0.4 MG CAP PO SCH ×2 (09:00→20:45)
[2019-10-21] MEDS: Polyethylene Glycol 3350 17 GM Packet PO SCH (09:00)
[2019-10-21] MEDS: Gabapentin 300 MG CAP PO SCH ×3 (09:00→20:46)
--- NOTE | 2019-10-21 13:40 | PRG ---
DATE OF SERVICE: 10/21/2019 SUBJECTIVE: Mr. Manriquez is resting in bed. He states that he was up for his meals. He feels like he is slowly getting better. He continues to have some pain. OBJECTIVE: VITAL SIGNS: He is afebrile. Heart rate 79, respirations 18, oxygen saturation 93% on room air, blood pressure 112/60. CARDIOVASCULAR: S1 and S2 plus. RESPIRATORY: Normal vesicular breath sounds. ABDOMEN: Soft, nontender. Bowel sounds heard in all quadrants. EXTREMITIES: Without cyanosis or clubbing. CENTRAL NERVOUS SYSTEM: Improving deconditioning. IMPRESSION: 1. Thoracic spine osteomyelitis and diskitis. 2. Hypertension. 3. Dyslipidemia. 4. BPH with urinary retention. 5. Chronic pain. 6. Iron deficiency anemia. PLAN: 1. Continue current medications. 2. Heart healthy diet. 3. Monitor blood pressure and adjust medications as needed. 4. Spinal precautions. 5. Continue antibiotics. 6. Weekly CBC, CMP, CRP, and sedimentation rate. 7. Melendez catheter care. 8. Increase activity as tolerated. 9. Continue therapy. Job ID: [id number]
[2019-10-21] MEDS: fentaNYL 50 mcg/hour Patch TD SCH (14:24)
[2019-10-21] MEDS: Atorvastatin Calcium 10 MG TAB PO SCH (20:45)
[2019-10-22] MEDS: Cefepime 2 GM in Sodium Chloride 0.9% 100 ML IVPB SCH ×2 (04:34→16:32)
[2019-10-22] MEDS: Ferrous Sulfate 325 MG TAB PO SCH ×2 (07:11→16:31)
[2019-10-22] MEDS: oxyCODONE 5 MG TAB PO PRN ×4 (07:11→21:16)
[2019-10-22] MEDS ORDERED: Sodium Chloride 0.9% 10 ML ONE ×2 (07:33→16:24)
[2019-10-22] MEDS: Gabapentin 300 MG CAP PO SCH ×4 (09:33→21:17)
[2019-10-22] MEDS: Tamsulosin HCl 0.4 MG CAP PO SCH ×2 (09:33→21:17)
[2019-10-22] MEDS: Calcium Carbonate 500 MG TAB PO SCH (09:33)
[2019-10-22] MEDS: Senokot S 8.6-50 MG TAB PO SCH ×2 (09:34→21:17)
[2019-10-22] MEDS: Finasteride 5 MG TAB PO SCH (09:34)
[2019-10-22] MEDS: Aspirin 81 mg Enteric Coated Tablet PO SCH (09:34)
[2019-10-22] MEDS: Pantoprazole 40 MG VIAL IVP SCH (09:35)
[2019-10-22] MEDS: Polyethylene Glycol 3350 17 GM Packet PO SCH (09:38)
--- NOTE | 2019-10-22 13:51 | PRG ---
DATE OF SERVICE: 10/22/2019 SUBJECTIVE: Mr. Manriquez is resting in bed. He states that he is not feeling well. He apparently took a pain medicine this morning at 7:10 and his pain did not improve. He apparently did not do much with therapy. He is getting his another pain medicine now. I reviewed his usage and his oxycodone 10 mg and the maximum he has taken is 3 pills in a 24-hour period and it is ordered every 4 hours. He is also on the fentanyl 50 mcg patch. Apparently, his daughter was upset that his pain is not under control and wants him to go see Dr. Ortega. I have talked to Dr. Ortega about this and I did leave him a message to see if he has any opinion as to maybe scheduling the oxycodone routine as the patient seems to be not asking for it. He suddenly not using the maximum that is ordered. He also has an appointment with Dr. Hinds this afternoon. Daughter wants him to follow up Dr. Gaona and I advised nursing that is okay. She also wanted him to see Urology and I had spoken to Dr. Hernandez and spoke to both the patient and spouse about my conversation. Dr. Hernandez was okay with this removing the Melendez and then just doing in and out catheterization for postvoid residuals greater than 400 mL, but the patient was the one who requested to keep the Melendez catheter in. OBJECTIVE: VITAL SIGNS: He is afebrile. Heart rate 76, respirations 18, oxygen saturation 93% on room air, blood pressure 128/67. CARDIOVASCULAR: S1 and S2 plus. RESPIRATORY: Normal vesicular breath sounds. ABDOMEN: Soft, nontender. Bowel sounds heard in all quadrants. EXTREMITIES: Without cyanosis or clubbing. Melendez catheter in place. CENTRAL NERVOUS SYSTEM: Improving deconditioning. IMPRESSION: 1. Hypertension. 2. Dyslipidemia. 3. BPH. 4. Thoracic spine osteomyelitis and diskitis. 5. Chronic pain. 6. Iron deficiency anemia. PLAN: 1. Continue current medications. 2. Heart healthy diet. 3. Monitor spinal precautions. 4. call back from Dr. Ortega. 5. I advised nursing okay to schedule appointment with Dr. Gaona. 6. Weekly CBC, CMP, CRP, and sedimentation rate due this Thursday. 7. Therapy as tolerated. 8. We will give daughter a call. Job ID: [id number]
[2019-10-22] MEDS: Atorvastatin Calcium 10 MG TAB PO SCH (21:17)
[2019-10-23] MEDS: Cefepime 2 GM in Sodium Chloride 0.9% 100 ML IVPB SCH ×2 (05:03→16:00)
[2019-10-23] MEDS: Calcium Carbonate 500 MG TAB PO SCH (08:31)
[2019-10-23] MEDS: oxyCODONE 5 MG TAB PO PRN ×2 (08:31→20:52)
[2019-10-23] MEDS: Aspirin 81 mg Enteric Coated Tablet PO SCH (08:31)
[2019-10-23] MEDS: Polyethylene Glycol 3350 17 GM Packet PO SCH (08:31)
[2019-10-23] MEDS: Gabapentin 300 MG CAP PO SCH ×3 (08:31→20:51)
[2019-10-23] MEDS: Tamsulosin HCl 0.4 MG CAP PO SCH ×2 (08:31→20:51)
[2019-10-23] MEDS: Pantoprazole 40 MG VIAL IVP SCH (08:32)
[2019-10-23] MEDS: Finasteride 5 MG TAB PO SCH (08:32)
[2019-10-23] MEDS: Ferrous Sulfate 325 MG TAB PO SCH ×2 (08:32→16:00)
[2019-10-23] MEDS: Senokot S 8.6-50 MG TAB PO SCH ×2 (08:32→20:51)
--- NOTE | 2019-10-23 13:26 | PRG ---
DATE OF SERVICE: 10/23/2019 SUBJECTIVE: Mr. Manriquez is up in his chair, getting ready to eat lunch. I advised him that I had a long discussion with Dr. Ortega about his pain regimen as his daughter apparently was upset that his pain is not under control. Dr. Ortega stated that he did do well with hydrocodone, and we may even consider scheduling the 5 mg hydrocodone q.12 and then the 10 mg every 6 as needed, but the main concern is sedation and respiratory depression. I had a long discussion with the patient and advised him that he does have the oxycodone 5 mg ordered q.4 p.r.n. and then 10 mg ordered q.4 p.r.n., and the most he has taken in a day is 3 of the oxycodone 10 mg tablets and none of the 5 mg. I again reinforced to him that he needs to ask for the pain medications, and he stated he does not know what medicine to ask for, and I advised him all he needs to do is to tell the nurses that he is in pain, and they will come by and ask him how much his pain rating is on the pain scale, and then depending on that, they will either give him a 5 or 10 mg. The patient states that he wants to stick with this and not switch to hydrocodone for now. No family at bedside. OBJECTIVE: VITAL SIGNS: He is afebrile. Heart rate 79, respirations 20, oxygen saturation 95% on room air, blood pressure 130/72. CARDIOVASCULAR: S1 and S2 plus. RESPIRATORY: Normal vesicular breath sounds. ABDOMEN: Soft and nontender. Bowel sounds heard in all quadrants. EXTREMITIES: Without cyanosis or clubbing. CENTRAL NERVOUS SYSTEM: Improving deconditioning. IMPRESSION: 1. Thoracic spine osteomyelitis and diskitis. 2. Hypertension. 3. Dyslipidemia. 4. Benign prostatic hypertrophy. 5. Iron deficiency anemia. 6. Chronic pain. PLAN: 1. Continue current medications. 2. Heart-healthy diet. 3. Melendez catheter care. 4. DVT prophylaxis with PlexiPulses. 5. Decubitus precautions. 6. Stress ulcer prophylaxis. 7. Routine laboratory values. Job ID: [id number]
[2019-10-23] MEDS: Atorvastatin Calcium 10 MG TAB PO SCH (20:51)
[2019-10-23] MEDS: Nystatin Powder 15 GM BOT TOP SCH (20:55)
[2019-10-24 05:11] LABS: #Basophils 0.1 thou/uL (0.0-0.2); #Eosinphils 0.1 thou/uL (0.0-0.7); #Lymphocytes 1.2 thou/uL (1.20-3.40); #Monocytes 0.6 thou/uL (0.11-0.59); %Basophils 0.9 % (0.0-1.0); %Eosinophils 1.4 % (0.0-10.0); %Lymphocytes 16.6 % (21.0-51.0); %Monocytes 8.8 % (0.0-10.0); %Neutrophils 72.3 % (42.0-75.0); Hemoglobin 11.4 g/dL (14.0-18.0); Mean Corpuscular HGB CONC 30.4 g/dL (32.0-36.0); Mean Corpuscular Hemoglobin 27.5 pg (27.0-31.0); Mean Corpuscular Volume 90.5 fL (78.0-98.0); Mean Platelet Volume 8.5 fL (7.4-10.4); Platelet Count 169 thou/uL (130-400); RBC Distribution Width 14.6 % (11.5-14.5); Red Blood Cell (RBC) Count 4.15 mill/uL (4.70-6.10)
[2019-10-24 05:27] LABS: ALT (SGPT) 30 U/L (8-55); AST (SGOT) 24 U/L (5-34); Albumin 2.9 g/dL (3.4-4.8); Alkaline Phosphatase 78 U/L (40-110); Anion Gap 12 mmol/L (10-20); BUN (Urea Nitrogen) 19 mg/dL (8.4-25.7); Bilirubin, Total 0.3 mg/dL (0.2-1.2); CRP (Inflammatory) 1.18 mg/dL (= or < 0.5); Calc. Creatinine Clearance 81 mL/min (70-130); Calcium 8.1 mg/dL (7.8-10.44); Carbon Dioxide 26 mmol/L (23-31); Chloride 104 mmol/L (98-107); Estimated GFR-MDRD Greater than 90; Globulin 2.9 g/dL (2.4-3.5); Glucose 108 mg/dL (83-110); Potassium 4.2 mmol/L (3.5-5.1); Protein, Total 5.8 g/dL (5.8-8.1); Sodium 138 mmol/L (136-145)
[2019-10-24] MEDS: Cefepime 2 GM in Sodium Chloride 0.9% 100 ML IVPB SCH ×2 (05:29→17:05)
[2019-10-24] MEDS: oxyCODONE 5 MG TAB PO PRN ×2 (08:40→17:11)
[2019-10-24] MEDS: Aspirin 81 mg Enteric Coated Tablet PO SCH (08:40)
[2019-10-24] MEDS: Ferrous Sulfate 325 MG TAB PO SCH ×2 (08:40→17:06)
[2019-10-24] MEDS: Tamsulosin HCl 0.4 MG CAP PO SCH ×2 (08:40→20:29)
[2019-10-24] MEDS: Calcium Carbonate 500 MG TAB PO SCH (08:40)
[2019-10-24] MEDS: Finasteride 5 MG TAB PO SCH (08:41)
[2019-10-24] MEDS: Pantoprazole 40 MG VIAL IVP SCH (08:41)
[2019-10-24] MEDS: Senokot S 8.6-50 MG TAB PO SCH ×2 (08:41→20:29)
[2019-10-24] MEDS: Gabapentin 300 MG CAP PO SCH ×3 (08:41→20:29)
[2019-10-24] MEDS: Polyethylene Glycol 3350 17 GM Packet PO SCH (08:41)
[2019-10-24] MEDS: Nystatin Powder 15 GM BOT TOP SCH (08:41)
--- NOTE | 2019-10-24 13:45 | PRG ---
DATE OF SERVICE: 10/24/2019 SUBJECTIVE: Mr. Manriquez is up in his chair. He has his brace on. He states that he is asking for the oxycodone and it seems to be helping. He had some questions regarding gabapentin versus Lyrica. He is having occasional tingling and numbness in his feet. I advised him that he is only on gabapentin 300 mg t.i.d. and the best option initially is to increase the dose unless he really wants to try the Lyrica, then I can taper him off the gabapentin over the next week and add the Lyrica. He wanted to just increase the gabapentin and see how he does. He has a telephone visit with his neurosurgeon coming up. I did inform him of his slight increase in his CRP, but no other evidence for any infection. OBJECTIVE: VITAL SIGNS: He is afebrile. Heart rate 75, respirations 20, oxygen saturation 95% on room air, blood pressure 119/66. CARDIOVASCULAR: S1 and S2 plus. RESPIRATORY: Normal vesicular breath sounds. ABDOMEN: Soft, nontender. Bowel sounds heard in all quadrants. EXTREMITIES: Without cyanosis or clubbing. CENTRAL NERVOUS SYSTEM: Generalized weakness. LABORATORY DATA: White count is 7, hemoglobin and hematocrit are 11.4 and 37.5. Sedimentation rate is 20. Sodium 138, potassium 4.2, and BUN and creatinine are 19 and 0.68, and CRP is 1.18. IMPRESSION: 1. Thoracic spine osteomyelitis and diskitis, on IV antibiotics. 2. Hypertension. 3. Dyslipidemia. 4. BPH. 5. Iron deficiency anemia. 6. Possible neuropathic pain. 7. Deconditioning. PLAN: 1. Continue current medications. 2. Heart healthy diet. 3. Spinal precautions. 4. Continue antibiotics. 5. Weekly CBC, CMP, CRP, and sedimentation rate. 6. Continue therapy. 7. Routine laboratory values. 8. Increase gabapentin to 300 mg q.i.d. Job ID: [id number]
[2019-10-24] MEDS: fentaNYL 50 mcg/hour Patch TD SCH (14:07)
[2019-10-24] MEDS: Atorvastatin Calcium 10 MG TAB PO SCH (20:29)
[2019-10-25] MEDS ORDERED: Sodium Chloride 0.9% 20 ML ONE (04:13)
[2019-10-25] MEDS: Cefepime 2 GM in Sodium Chloride 0.9% 100 ML IVPB SCH ×2 (04:33→16:40)
[2019-10-25] MEDS: oxyCODONE 5 MG TAB PO PRN ×4 (04:36→21:03)
[2019-10-25] MEDS: Polyethylene Glycol 3350 17 GM Packet PO SCH (08:46)
[2019-10-25] MEDS: Sodium Chloride 0.9% 10 ML ONE ×2 (08:46→16:41)
[2019-10-25] MEDS: Aspirin 81 mg Enteric Coated Tablet PO SCH (08:47)
[2019-10-25] MEDS: Ferrous Sulfate 325 MG TAB PO SCH ×2 (08:47→16:40)
[2019-10-25] MEDS: Finasteride 5 MG TAB PO SCH (08:47)
[2019-10-25] MEDS: Senokot S 8.6-50 MG TAB PO SCH ×2 (08:47→21:00)
[2019-10-25] MEDS: Gabapentin 300 MG CAP PO SCH ×4 (08:47→21:00)
[2019-10-25] MEDS: Calcium Carbonate 500 MG TAB PO SCH (08:47)
[2019-10-25] MEDS: Tamsulosin HCl 0.4 MG CAP PO SCH ×2 (08:47→21:01)
[2019-10-25] MEDS: Pantoprazole 40 MG VIAL IVP SCH ×2 (08:48→09:58)
[2019-10-25] MEDS ORDERED: Activase 2 MG VIAL CATH SCH (10:00)
[2019-10-25] MEDS: Atorvastatin Calcium 10 MG TAB PO SCH (21:01)
[2019-10-26] MEDS: Cefepime 2 GM in Sodium Chloride 0.9% 100 ML IVPB SCH ×2 (04:40→16:34)
[2019-10-26] MEDS: oxyCODONE 5 MG TAB PO PRN ×5 (04:49→20:49)
[2019-10-26] MEDS: Gabapentin 300 MG CAP PO SCH ×4 (08:00→20:50)
[2019-10-26] MEDS: Tamsulosin HCl 0.4 MG CAP PO SCH ×2 (08:00→20:50)
[2019-10-26] MEDS: Polyethylene Glycol 3350 17 GM Packet PO SCH (08:00)
[2019-10-26] MEDS: Pantoprazole 40 MG VIAL IVP SCH (08:00)
[2019-10-26] MEDS: Aspirin 81 mg Enteric Coated Tablet PO SCH (08:00)
[2019-10-26] MEDS: Ferrous Sulfate 325 MG TAB PO SCH ×2 (08:00→16:35)
[2019-10-26] MEDS: Calcium Carbonate 500 MG TAB PO SCH (08:00)
[2019-10-26] MEDS: Senokot S 8.6-50 MG TAB PO SCH ×2 (08:00→20:50)
[2019-10-26] MEDS: Finasteride 5 MG TAB PO SCH (08:00)
[2019-10-26] MEDS: Sodium Chloride 0.9% 10 ML ONE (08:01)
[2019-10-26] MEDS ORDERED: Sodium Chloride 0.9% 10 ML ONE (16:23)
[2019-10-26] MEDS: Atorvastatin Calcium 10 MG TAB PO SCH (20:49)
[2019-10-27] MEDS: Cefepime 2 GM in Sodium Chloride 0.9% 100 ML IVPB SCH ×2 (05:16→16:36)
--- NOTE | 2019-10-27 06:59 | PRG ---
DATE OF SERVICE: 10/26/2019 SUBJECTIVE: The patient is sitting up in the bed, denying any pain at rest. He is eating well and is asking when he can be finished with his antibiotics. He is having no fever, chills, anorexia, nausea, and vomiting. OBJECTIVE: VITAL SIGNS: Shows temperature is 97.3, pulse 100, respirations 18, O2 sats 97% on room air, blood pressure is 142/72. Inflammatory markers back to normal. LUNGS: Clear. CARDIAC: Regular rhythm. ABDOMEN: Soft and nontender. SKIN AND EXTREMITIES: Show tenderness to palpation of the mid back. NEUROLOGICAL: Shows generalized weakness. No focal findings. ASSESSMENT: 1. Thoracic osteomyelitis, diskitis, on IV antibiotics, improving pain with pain medications and antibiotics. 2. Hypertension, controlled to goal. 3. Deconditioning, improving slightly. PLAN: 1. Continue PT, OT. 2. Continue pain relief per rehab physician. 3. Continue full course of antibiotics within date undetermined as far as I can see and Dr. Milan will determine. 4. Continue to monitor for signs of lower tract obstruction from BPH. Job ID: [id number]
[2019-10-27] MEDS: Ferrous Sulfate 325 MG TAB PO SCH ×2 (07:50→16:36)
[2019-10-27] MEDS: oxyCODONE 5 MG TAB PO PRN ×3 (07:50→20:37)
[2019-10-27] MEDS: Senokot S 8.6-50 MG TAB PO SCH ×2 (07:52→20:36)
[2019-10-27] MEDS: Polyethylene Glycol 3350 17 GM Packet PO SCH (07:52)
[2019-10-27] MEDS: Gabapentin 300 MG CAP PO SCH ×4 (07:53→20:36)
[2019-10-27] MEDS: Tamsulosin HCl 0.4 MG CAP PO SCH ×2 (07:53→20:36)
[2019-10-27] MEDS: Finasteride 5 MG TAB PO SCH (07:53)
[2019-10-27] MEDS: Calcium Carbonate 500 MG TAB PO SCH (07:53)
[2019-10-27] MEDS: Pantoprazole 40 MG VIAL IVP SCH (07:53)
[2019-10-27] MEDS: Aspirin 81 mg Enteric Coated Tablet PO SCH (07:53)
--- NOTE | 2019-10-27 19:45 | PRG ---
DATE OF SERVICE: 10/27/2019 SUBJECTIVE: The patient feels better with persistent, but decreased back pain, lying in bed with no complaints. OBJECTIVE: VITAL SIGNS: Shows temperature is 96.7, pulse 70, respirations 18, O2 saturations 94% on room air, blood pressure 120/61. LUNGS: Clear. CARDIAC: Shows a regular rhythm. ABDOMEN: Soft and nontender. SKIN AND EXTREMITIES: Show tenderness to palpation of the lower back and midback. NEUROLOGIC: Shows no focal findings, but generalized weakness. ASSESSMENT: 1. Resolving thoracic osteomyelitis, on IV antibiotics. 2. Hypertension, controlled to goal. 3. Deconditioning, improving. PLAN: 1. Continue PT and OT. 2. Continue pain relief per primary care physician. 3. Continue to monitor for signs of lower tract obstruction. 4. Continue antibiotics until predetermined final dose. 5. Conversation with neurosurgeon this week. Job ID: [id number]
[2019-10-27] MEDS: Atorvastatin Calcium 10 MG TAB PO SCH (20:39)
[2019-10-28] MEDS: Cefepime 2 GM in Sodium Chloride 0.9% 100 ML IVPB SCH ×2 (05:28→17:38)
[2019-10-28] MEDS: Ferrous Sulfate 325 MG TAB PO SCH ×2 (09:01→17:38)
[2019-10-28] MEDS: Gabapentin 300 MG CAP PO SCH ×4 (09:01→20:44)
[2019-10-28] MEDS: Senokot S 8.6-50 MG TAB PO SCH ×2 (09:01→20:44)
[2019-10-28] MEDS: Aspirin 81 mg Enteric Coated Tablet PO SCH (09:01)
[2019-10-28] MEDS: Calcium Carbonate 500 MG TAB PO SCH (09:01)
[2019-10-28] MEDS: Finasteride 5 MG TAB PO SCH (09:02)
[2019-10-28] MEDS: Polyethylene Glycol 3350 17 GM Packet PO SCH (09:02)
[2019-10-28] MEDS: Pantoprazole 40 MG VIAL IVP SCH (09:02)
[2019-10-28] MEDS: oxyCODONE 5 MG TAB PO PRN ×2 (09:12→20:44)
[2019-10-28] MEDS: Tamsulosin HCl 0.4 MG CAP PO SCH ×2 (09:13→20:44)
[2019-10-28] MEDS: Acetaminophen 500 MG TAB PO PRN (09:13)
--- NOTE | 2019-10-28 13:30 | PRG ---
DATE OF SERVICE: 10/25/2019 SUBJECTIVE: Mr. Manriquez is doing the same. Denies any complaints. His spouse is in the room. They apparently want him to go and see plastic surgeon for skin cancer removal and then go to inpatient rehab. I have informed Case Management to kind to get that arranged. OBJECTIVE: VITAL SIGNS: He is afebrile. Heart rate is 72, respirations 18, oxygen saturations 94% on room air, blood pressure 110/65. CARDIOVASCULAR: S1 and S2 plus. RESPIRATORY: Normal vesicular breath sounds. ABDOMEN: Soft and nontender. Bowel sounds heard in all quadrants. EXTREMITIES: Without cyanosis or clubbing. IMPRESSION: 1. Thoracic spine osteomyelitis and diskitis. 2. Hypertension. 3. Dyslipidemia. 4. Benign prostatic hypertrophy. 5. Peripheral neuropathy. 6. Iron deficiency anemia. PLAN: 1. Continue current medications. 2. Heart healthy diet. 3. Spinal precautions. 4. Continue antibiotics. 5. Routine laboratory values. 6. Physical therapy. 7. Case Management to arrange his transportation and get an [facility] to come by and evaluate the patient. Job ID: [id number]
--- NOTE | 2019-10-28 13:42 | PRG ---
DATE OF SERVICE: 10/28/2019 SUBJECTIVE: Mr. Manriquez is up in his chair. He just finished his lunch. He denies any questions or concerns. He continues to have some issues with peripheral neuropathy. He is not sure if he wants to switch from gabapentin to Lyrica or not. No family at bedside. OBJECTIVE: VITAL SIGNS: He is afebrile. Heart rate is 81, respirations 20, oxygen saturations 93% on room air, and blood pressure 129/60. CARDIOVASCULAR: S1 and S2 plus. RESPIRATORY: Normal vesicular breath sounds. ABDOMEN: Soft and nontender. Bowel sounds heard in all quadrants. EXTREMITIES: Without cyanosis or clubbing. CENTRAL NERVOUS SYSTEM: Generalized weakness, otherwise nonfocal. IMPRESSION: 1. Thoracic spine osteomyelitis and diskitis. 2. Hypertension. 3. Dyslipidemia. 4. Benign prostatic hypertrophy. 5. Iron-deficiency anemia. PLAN: 1. Continue current medications. 2. Heart healthy diet. 3. Continue antibiotics. 4. DVT prophylaxis with PlexiPulses. 5. Decubitus precautions. 6. Stress ulcer prophylaxis. 7. Weekly laboratory values. 8. Case Management to arrange transportation to the plastic surgeon and then have [facility] evaluate the patient, so he can then be transferred to [facility]. Job ID: [id number]
[2019-10-28] MEDS: Atorvastatin Calcium 10 MG TAB PO SCH (20:44)
[2019-10-29] MEDS: Cefepime 2 GM in Sodium Chloride 0.9% 100 ML IVPB SCH ×2 (04:59→16:39)
[2019-10-29] MEDS: oxyCODONE 5 MG TAB PO PRN ×3 (07:34→20:57)
[2019-10-29] MEDS: Polyethylene Glycol 3350 17 GM Packet PO SCH (09:28)
[2019-10-29] MEDS: Senokot S 8.6-50 MG TAB PO SCH ×2 (09:29→20:57)
[2019-10-29] MEDS: Tamsulosin HCl 0.4 MG CAP PO SCH ×2 (09:29→20:57)
[2019-10-29] MEDS: Ferrous Sulfate 325 MG TAB PO SCH ×2 (09:29→16:29)
[2019-10-29] MEDS: Pantoprazole 40 MG VIAL IVP SCH (09:29)
[2019-10-29] MEDS: Aspirin 81 mg Enteric Coated Tablet PO SCH (09:29)
[2019-10-29] MEDS: Gabapentin 300 MG CAP PO SCH ×4 (09:29→20:57)
[2019-10-29] MEDS: Calcium Carbonate 500 MG TAB PO SCH (09:29)
[2019-10-29] MEDS: Finasteride 5 MG TAB PO SCH (09:29)
[2019-10-29] MEDS: Sodium Chloride 0.9% 10 ML ONE (09:40)
--- NOTE | 2019-10-29 12:56 | PRG ---
DATE OF SERVICE: 10/29/2019 SUBJECTIVE: Mr. Manriquez is up in his chair, eating lunch. He has his brace on. He states that he is doing better. OBJECTIVE: VITAL SIGNS: He is afebrile. Heart rate is 75, respirations 20, oxygen saturation 96% on room air, blood pressure 132/66. CARDIOVASCULAR: S1 and S2 plus. RESPIRATORY: Normal vesicular breath sounds. ABDOMEN: Soft and nontender. Bowel sounds heard in all quadrants. EXTREMITIES: Without cyanosis or clubbing. CENTRAL NERVOUS SYSTEM: Improving deconditioning. IMPRESSION: 1. Thoracic spine osteomyelitis and diskitis. 2. Hypertension. 3. Dyslipidemia. 4. Benign prostatic hypertrophy. 5. Iron deficiency anemia. 6. Possible peripheral neuropathy. PLAN: 1. Continue current medications. 2. Heart healthy diet. 3. Melendez catheter care. 4. Spinal precautions. 5. Continue antibiotics. 6. Weekly CBC, CMP, CRP, and sedimentation rate this . 7. Continue therapy. 8. The patient's wants him to go from here to his plastic surgery appointment and then from there to inpatient rehab, so Case Management already aware, but we will also inform the charge nurse. Job ID: [id number]
[2019-10-29] MEDS ORDERED: Sodium Chloride 0.9% 20 ML ONE (16:11)
[2019-10-29] MEDS: Atorvastatin Calcium 10 MG TAB PO SCH (20:56)
[2019-10-30] MEDS: Cefepime 2 GM in Sodium Chloride 0.9% 100 ML IVPB SCH ×2 (05:39→17:10)
[2019-10-30] MEDS: Sodium Chloride 0.9% 10 ML ONE ×2 (07:59→17:10)
[2019-10-30] MEDS: Polyethylene Glycol 3350 17 GM Packet PO SCH (07:59)
[2019-10-30] MEDS: oxyCODONE 5 MG TAB PO PRN ×3 (07:59→22:25)
[2019-10-30] MEDS: Calcium Carbonate 500 MG TAB PO SCH (08:00)
[2019-10-30] MEDS: Finasteride 5 MG TAB PO SCH (08:00)
[2019-10-30] MEDS: Pantoprazole 40 MG VIAL IVP SCH (08:00)
[2019-10-30] MEDS: Senokot S 8.6-50 MG TAB PO SCH ×2 (08:00→22:23)
[2019-10-30] MEDS: Ferrous Sulfate 325 MG TAB PO SCH ×2 (08:00→17:10)
[2019-10-30] MEDS: Tamsulosin HCl 0.4 MG CAP PO SCH ×2 (08:00→22:22)
[2019-10-30] MEDS: Aspirin 81 mg Enteric Coated Tablet PO SCH (08:00)
[2019-10-30] MEDS: Gabapentin 300 MG CAP PO SCH ×4 (08:00→22:23)
--- NOTE | 2019-10-30 13:17 | PRG ---
DATE OF SERVICE: 10/30/2019 SUBJECTIVE: Mr. Manriquez is up in his chair, eating lunch. Continues to complain of pain in his back, but the pain medicines are helping. He does have his brace on. He is due for his weekly labs tomorrow. Denies any questions or concerns. OBJECTIVE: VITAL SIGNS: He is afebrile. Heart rate 65, respirations 18, oxygen saturation 96% on room air, blood pressure is 121/58. CARDIOVASCULAR: S1 and S2 plus. RESPIRATORY: Normal vesicular breath sounds. ABDOMEN: Soft, nontender. Bowel sounds heard in all quadrants. EXTREMITIES: Without cyanosis or clubbing. CENTRAL NERVOUS SYSTEM: Improving deconditioning. IMPRESSION: 1. Thoracic spinal osteomyelitis and diskitis. 2. Hypertension. 3. Dyslipidemia. 4. Benign prostatic hypertrophy. 5. Iron deficiency anemia. PLAN: 1. Continue current medications including antibiotics. 2. Melendez catheter care. 3. Spinal precautions. 4. Physical therapy. 5. DVT prophylaxis with PlexiPulses. 6. Decubitus precaution. 7. Stress ulcer prophylaxis. 8. Routine laboratory values. 9. Discussed with the patient in detail and all questions answered. Job ID: [id number]
[2019-10-30] MEDS: fentaNYL 50 mcg/hour Patch TD SCH (14:16)
[2019-10-30] MEDS: Atorvastatin Calcium 10 MG TAB PO SCH (22:23)
[2019-10-30] MEDS: Nystatin Powder 15 GM BOT TOP SCH (22:23)
[2019-10-31] MEDS: Cefepime 2 GM in Sodium Chloride 0.9% 100 ML IVPB SCH ×2 (04:25→16:07)
[2019-10-31 05:45] LABS: #Basophils 0.1 thou/uL (0.0-0.2); #Lymphocytes 1.5 thou/uL (1.20-3.40); #Monocytes 0.7 thou/uL (0.11-0.59); #Neutrophils 3.5 thou/uL (1.40-6.50); %Basophils 1.2 % (0.0-1.0); %Eosinophils 0.3 % (0.0-10.0); %Lymphocytes 25.8 % (21.0-51.0); %Monocytes 12.1 % (0.0-10.0); %Neutrophils 60.7 % (42.0-75.0); Hemoglobin 11.9 g/dL (14.0-18.0); Mean Corpuscular HGB CONC 30.3 g/dL (32.0-36.0); Mean Corpuscular Hemoglobin 27.4 pg (27.0-31.0); Mean Corpuscular Volume 90.3 fL (78.0-98.0); Mean Platelet Volume 8.8 fL (7.4-10.4); Platelet Count 165 thou/uL (130-400); RBC Distribution Width 14.4 % (11.5-14.5); Red Blood Cell (RBC) Count 4.33 mill/uL (4.70-6.10); White Blood Cell (WBC) Count 5.7 thou/uL (4.8-10.8)
[2019-10-31 06:02] LABS: ALT (SGPT) 24 U/L (8-55); AST (SGOT) 21 U/L (5-34); Alkaline Phosphatase 72 U/L (40-110); Anion Gap 12 mmol/L (10-20); BUN (Urea Nitrogen) 20 mg/dL (8.4-25.7); Bilirubin, Total 0.3 mg/dL (0.2-1.2); CRP (Inflammatory) 0.73 mg/dL (= or < 0.5); Calc. Creatinine Clearance 77 mL/min (70-130); Calcium 8.5 mg/dL (7.8-10.44); Carbon Dioxide 27 mmol/L (23-31); Chloride 104 mmol/L (98-107); Estimated GFR-MDRD Greater than 90; Glucose 100 mg/dL (83-110); Potassium 4.2 mmol/L (3.5-5.1); Sodium 139 mmol/L (136-145)
[2019-10-31] MEDS: Ferrous Sulfate 325 MG TAB PO SCH ×2 (07:38→16:07)
[2019-10-31] MEDS: oxyCODONE 5 MG TAB PO PRN ×3 (07:39→16:24)
[2019-10-31] MEDS: Polyethylene Glycol 3350 17 GM Packet PO SCH (07:39)
[2019-10-31] MEDS: Aspirin 81 mg Enteric Coated Tablet PO SCH (08:29)
[2019-10-31] MEDS: Gabapentin 300 MG CAP PO SCH ×4 (08:29→20:19)
[2019-10-31] MEDS: Tamsulosin HCl 0.4 MG CAP PO SCH ×2 (08:29→20:19)
[2019-10-31] MEDS: Senokot S 8.6-50 MG TAB PO SCH ×2 (08:29→20:19)
[2019-10-31] MEDS: Calcium Carbonate 500 MG TAB PO SCH (08:29)
[2019-10-31] MEDS: Finasteride 5 MG TAB PO SCH (08:29)
[2019-10-31] MEDS: Pantoprazole 40 MG VIAL IVP SCH (08:30)
[2019-10-31] MEDS: Nystatin Powder 15 GM BOT TOP SCH (08:30)
--- NOTE | 2019-10-31 13:07 | PRG ---
DATE OF SERVICE: 10/31/2019 SUBJECTIVE: Mr. Manriquez is up in his chair eating lunch. He does have his brace on. He denies any questions or concerns. Discussed with nursing. OBJECTIVE: VITAL SIGNS: He is afebrile, heart rate 65, respirations 18, oxygen saturation 93% on room air, blood pressure 128/60. CARDIOVASCULAR: S1 and S2 plus. RESPIRATORY: Normal vesicular breath sounds. ABDOMEN: Soft and nontender. Bowel sounds heard in all quadrants. EXTREMITIES: Without cyanosis or clubbing. CENTRAL NERVOUS SYSTEM: Improving deconditioning. LABORATORY DATA: Laboratory values done this morning show a white count of 5.7, H and H are 11.9 and 39.1. Sedimentation rate is 20. Sodium 138, potassium 4.2, BUN and creatinine are 20 and 0.72 with a CRP of 0.73. IMPRESSION: 1. Resolving thoracic spine osteomyelitis and diskitis. 2. Hypertension. 3. Dyslipidemia. 4. Benign prostatic hypertrophy with urinary retention. 5. Improving deconditioning. 6. Iron deficiency anemia. PLAN: 1. Continue current medications. 2. Heart-healthy diet. 3. Spinal precautions. 4. Continue therapy. 5. Routine laboratory values. 6. Melendez catheter care. 7. DVT prophylaxis with PlexiPulses. 8. Decubitus precautions. 9. Stress ulcer prophylaxis. 10. Inpatient rehab evaluation next week. Job ID: [id number]
[2019-10-31] MEDS ORDERED: Sodium Chloride 0.9% 10 ML ONE (16:00)
[2019-10-31] MEDS: Atorvastatin Calcium 10 MG TAB PO SCH (20:19)
[2019-11-01] MEDS: Cefepime 2 GM in Sodium Chloride 0.9% 100 ML IVPB SCH ×2 (05:12→17:44)
[2019-11-01] MEDS ORDERED: Sodium Chloride 0.9% 10 ML ONE (05:49)
[2019-11-01] MEDS: Polyethylene Glycol 3350 17 GM Packet PO SCH (08:19)
[2019-11-01] MEDS: oxyCODONE 5 MG TAB PO PRN ×2 (08:20→17:43)
[2019-11-01] MEDS: Tamsulosin HCl 0.4 MG CAP PO SCH ×2 (08:21→20:14)
[2019-11-01] MEDS: Aspirin 81 mg Enteric Coated Tablet PO SCH (08:21)
[2019-11-01] MEDS: Finasteride 5 MG TAB PO SCH (08:22)
[2019-11-01] MEDS: Ferrous Sulfate 325 MG TAB PO SCH ×2 (08:22→17:42)
[2019-11-01] MEDS: Gabapentin 300 MG CAP PO SCH ×4 (08:22→20:14)
[2019-11-01] MEDS: Senokot S 8.6-50 MG TAB PO SCH ×2 (08:22→20:14)
[2019-11-01] MEDS: Pantoprazole 40 MG VIAL IVP SCH (08:22)
[2019-11-01] MEDS: Calcium Carbonate 500 MG TAB PO SCH (08:22)
--- NOTE | 2019-11-01 10:52 | PRG ---
DATE OF SERVICE: 11/01/2019 SUBJECTIVE: Mr. Manriquez is doing the same. Denies any complaints. Waiting on therapy. Still having pain, but the pain medicines are helping. OBJECTIVE: VITAL SIGNS: He is afebrile. Heart rate 79, respirations 20, oxygen saturation 96% on room air, blood pressure 119/66. CARDIOVASCULAR: S1 and S2 plus. RESPIRATORY: Normal vesicular breath sounds. ABDOMEN: Soft, nontender. Bowel sounds are heard in all quadrants. EXTREMITIES: Without cyanosis or clubbing. CENTRAL NERVOUS SYSTEM: Improving deconditioning. IMPRESSION: 1. Thoracic spinal osteomyelitis and diskitis. 2. Hypertension. 3. Dyslipidemia. 4. BPH with urinary retention. 5. Iron deficiency anemia. 6. Deconditioning. PLAN: 1. Continue current medications. 2. Heart healthy diet. 3. Monitor blood pressure and adjust medications as needed. 4. Spinal precautions. 5. Weekly CBC, CMP, CRP, and sedimentation rate. 6. Inpatient rehabilitation evaluation next week. 7. Tentative plan is for him to be discharged on the , so that he can go for his outpatient surgery for his skin cancer and then possibly go to inpatient rehab for admission. Job ID: [id number]
[2019-11-01] MEDS ORDERED: Sodium Chloride 0.9% 20 ML ONE (16:19)
[2019-11-01] MEDS: Atorvastatin Calcium 10 MG TAB PO SCH (20:14)
[2019-11-02] MEDS: Cefepime 2 GM in Sodium Chloride 0.9% 100 ML IVPB SCH ×2 (05:09→17:47)
[2019-11-02] MEDS ORDERED: Sodium Chloride 0.9% 40 ML ONE (08:21)
[2019-11-02] MEDS: Calcium Carbonate 500 MG TAB PO SCH (08:41)
[2019-11-02] MEDS: Gabapentin 300 MG CAP PO SCH ×4 (08:41→20:21)
[2019-11-02] MEDS: Finasteride 5 MG TAB PO SCH (08:41)
[2019-11-02] MEDS: Pantoprazole 40 MG VIAL IVP SCH (08:41)
[2019-11-02] MEDS: Tamsulosin HCl 0.4 MG CAP PO SCH ×2 (08:41→20:21)
[2019-11-02] MEDS: Senokot S 8.6-50 MG TAB PO SCH ×2 (08:41→20:21)
[2019-11-02] MEDS: Ferrous Sulfate 325 MG TAB PO SCH ×2 (08:41→17:46)
[2019-11-02] MEDS: Polyethylene Glycol 3350 17 GM Packet PO SCH (08:41)
[2019-11-02] MEDS: Aspirin 81 mg Enteric Coated Tablet PO SCH (08:41)
[2019-11-02] MEDS: oxyCODONE 5 MG TAB PO PRN ×2 (08:53→14:53)
[2019-11-02] MEDS: fentaNYL 50 mcg/hour Patch TD SCH (14:54)
--- NOTE | 2019-11-02 15:47 | PRG ---
DATE OF SERVICE: 11/02/2019 SUBJECTIVE: Mr. Manriquez is resting in bed. He feels that the increase in gabapentin is finally helping. He is noticing much less tingling in his legs. His nurse, Sedrick, is in the room and all questions answered. No other concerns or questions. OBJECTIVE: VITAL SIGNS: He is afebrile. Heart rate 62, respirations 19, oxygen saturation 94% on room air, and blood pressure 117/62. CARDIOVASCULAR: S1 and S2 plus. RESPIRATORY: Normal vesicular breath sounds. ABDOMEN: Soft, nontender. Bowel sounds heard in all quadrants. EXTREMITIES: Without cyanosis or clubbing. CENTRAL NERVOUS SYSTEM: Improving deconditioning, otherwise nonfocal. IMPRESSION: 1. Thoracic spine osteomyelitis and diskitis. 2. Hypertension. 3. Dyslipidemia. 4. Benign prostatic hypertrophy with urinary retention. 5. Iron deficiency anemia. 6. Possible peripheral neuropathy. PLAN: 1. Continue current medications. 2. Heart healthy diet. 3. DVT prophylaxis with PlexiPulses. 4. Spinal precautions. 5. Decubitus precautions. 6. Melendez catheter care. 7. Therapy. 8. Routine laboratory values. 9. Inpatient rehabilitation evaluation next week. No family at bedside. Job ID: [id number]
[2019-11-02] MEDS: Atorvastatin Calcium 10 MG TAB PO SCH (20:21)
[2019-11-03] MEDS: Cefepime 2 GM in Sodium Chloride 0.9% 100 ML IVPB SCH ×2 (05:09→16:33)
[2019-11-03] MEDS: Aspirin 81 mg Enteric Coated Tablet PO SCH (08:30)
[2019-11-03] MEDS: Ferrous Sulfate 325 MG TAB PO SCH ×2 (08:30→16:33)
[2019-11-03] MEDS: Calcium Carbonate 500 MG TAB PO SCH (08:31)
[2019-11-03] MEDS: Finasteride 5 MG TAB PO SCH (08:31)
[2019-11-03] MEDS: Pantoprazole 40 MG VIAL IVP SCH (08:31)
[2019-11-03] MEDS: Gabapentin 300 MG CAP PO SCH ×4 (08:31→20:48)
[2019-11-03] MEDS: Senokot S 8.6-50 MG TAB PO SCH ×2 (08:31→20:48)
[2019-11-03] MEDS: oxyCODONE 5 MG TAB PO PRN (08:31)
[2019-11-03] MEDS: Tamsulosin HCl 0.4 MG CAP PO SCH ×2 (08:31→20:48)
[2019-11-03] MEDS: Polyethylene Glycol 3350 17 GM Packet PO SCH (08:40)
--- NOTE | 2019-11-03 15:21 | PRG ---
DATE OF SERVICE: 11/03/2019 SUBJECTIVE: Mr. Manriquez is resting in bed. He denies any complaints. He apparently had a tele visit with his neurosurgeon and is feeling discouraged. He thinks that he really cannot be able to do anything more than what he is doing currently and I advised him to just focus on it one day at a time and keep working and then see what happens. No family at bedside. OBJECTIVE: VITAL SIGNS: He is afebrile, heart rate 64, respirations 18, oxygen saturation 92% on room air, and blood pressure 120/60. CARDIOVASCULAR SYSTEM: S1 and S2 plus. RESPIRATORY SYSTEM: Normal vesicular breath sounds. ABDOMEN: Soft and nontender. Bowel sounds heard in all quadrants. EXTREMITIES: Without cyanosis or clubbing. CENTRAL NERVOUS SYSTEM: Generalized weakness. IMPRESSION: 1. Thoracic spine osteomyelitis and diskitis. 2. Hypertension. 3. Dyslipidemia. 4. Benign prostatic hyperplasia with urinary retention. 5. Iron deficiency anemia. 6. Persistent deconditioning. PLAN: 1. Continue current medications. 2. Heart healthy diet. 3. Melendez catheter care. 4. Spinal precautions. 5. Inpatient rehab evaluation. 6. Continue therapy. 7. Routine laboratory values. Job ID: [id number]
[2019-11-03] MEDS: Atorvastatin Calcium 10 MG TAB PO SCH (20:48)
[2019-11-04] MEDS: Cefepime 2 GM in Sodium Chloride 0.9% 100 ML IVPB SCH ×2 (05:12→16:55)
[2019-11-04] MEDS: Tamsulosin HCl 0.4 MG CAP PO SCH ×2 (09:36→20:10)
[2019-11-04] MEDS: Ferrous Sulfate 325 MG TAB PO SCH ×2 (09:36→16:56)
[2019-11-04] MEDS: Senokot S 8.6-50 MG TAB PO SCH ×2 (09:36→20:10)
[2019-11-04] MEDS: oxyCODONE 5 MG TAB PO PRN ×2 (09:37→16:54)
[2019-11-04] MEDS: Gabapentin 300 MG CAP PO SCH ×2 (09:38→12:42)
[2019-11-04] MEDS: Finasteride 5 MG TAB PO SCH (09:38)
[2019-11-04] MEDS: Aspirin 81 mg Enteric Coated Tablet PO SCH (09:38)
[2019-11-04] MEDS: Calcium Carbonate 500 MG TAB PO SCH (09:38)
[2019-11-04] MEDS: Pantoprazole 40 MG VIAL IVP SCH (09:39)
[2019-11-04] MEDS: Polyethylene Glycol 3350 17 GM Packet PO SCH (09:42)
--- NOTE | 2019-11-04 13:39 | PRG ---
DATE OF SERVICE: 11/04/2019 SUBJECTIVE: Mr. Manriquez is up in his chair. He just finished his lunch. He states that the tingling is back in his feet and he wants to try the Lyrica. I advised him that I am going to just stop the gabapentin now and then start him on Lyrica 75 mg b.i.d. and then we can adjust the dosing depending upon his response. I am also going to put in a consult for [facility] to come by and evaluate him for possible inpatient rehab. No family at bedside. OBJECTIVE: VITAL SIGNS: He is afebrile. Heart rate 78, respirations 18, oxygen saturation 93% on room air, blood pressure 130/59. CARDIOVASCULAR: S1 and S2 plus. RESPIRATORY: Normal vesicular breath sounds. ABDOMEN: Soft, nontender. Bowel sounds heard in all quadrants. EXTREMITIES: Without cyanosis or clubbing. CENTRAL NERVOUS SYSTEM: Persistent deconditioning. IMPRESSION: 1. Thoracic spine osteomyelitis and diskitis. 2. Peripheral neuropathy. 3. Hypertension. 4. Dyslipidemia. 5. BPH with retention. 6. Iron deficiency anemia. PLAN: 1. Continue current medications, but change gabapentin to Lyrica. 2. Nutritional support with heart healthy diet. 3. Melendez catheter care. 4. Spinal precautions. 5. Inpatient rehab evaluation. 6. Continue therapy. 7. Routine laboratory values. 8. DVT prophylaxis with PlexiPulses. 9. Decubitus precautions. 10. Stress ulcer prophylaxis. Job ID: [id number]
[2019-11-04] MEDS: Atorvastatin Calcium 10 MG TAB PO SCH (20:10)
[2019-11-04] MEDS: Pregabalin 75 MG CAP PO SCH (20:10)
[2019-11-05] MEDS: Cefepime 2 GM in Sodium Chloride 0.9% 100 ML IVPB SCH ×2 (04:53→17:07)
[2019-11-05] MEDS: Pregabalin 75 MG CAP PO SCH ×2 (08:25→21:13)
[2019-11-05] MEDS: Ferrous Sulfate 325 MG TAB PO SCH ×2 (08:25→17:06)
[2019-11-05] MEDS: Aspirin 81 mg Enteric Coated Tablet PO SCH (08:25)
[2019-11-05] MEDS: Finasteride 5 MG TAB PO SCH (08:25)
[2019-11-05] MEDS: Pantoprazole 40 MG VIAL IVP SCH (08:26)
[2019-11-05] MEDS: Calcium Carbonate 500 MG TAB PO SCH (08:26)
[2019-11-05] MEDS: Tamsulosin HCl 0.4 MG CAP PO SCH ×2 (08:26→21:14)
[2019-11-05] MEDS: Senokot S 8.6-50 MG TAB PO SCH ×2 (08:26→21:14)
[2019-11-05] MEDS: Polyethylene Glycol 3350 17 GM Packet PO SCH (08:26)
[2019-11-05] MEDS: oxyCODONE 5 MG TAB PO PRN ×2 (11:46→21:15)
[2019-11-05] MEDS: fentaNYL 50 mcg/hour Patch TD SCH (14:15)
--- NOTE | 2019-11-05 14:18 | PRG ---
DATE OF SERVICE: 11/05/2019 SUBJECTIVE: Mr. Manriquez is up in his chair. He states that he would like his brace off as he is noticing some pain. He feels like the Lyrica is helping, but it made him more sleepy. I advised him that the somnolent would go away within couple a day. He has antibiotics that are done today and then he is going to be on oral antibiotics. OBJECTIVE: VITAL SIGNS: He is afebrile. Heart rate 74, respirations 18, oxygen saturation 95% on room air, blood pressure 136/67. CARDIOVASCULAR: S1 and S2 plus. RESPIRATORY: Normal vesicular breath sounds. ABDOMEN: Soft, nontender. Bowel sounds heard in all quadrants. EXTREMITIES: Without cyanosis or clubbing. CENTRAL NERVOUS SYSTEM: Improving deconditioning. IMPRESSION: 1. Thoracic spine osteomyelitis and diskitis. 2. Hypertension. 3. Dyslipidemia. 4. BPH with urinary retention. 5. Iron deficiency anemia. 6. Improving deconditioning. PLAN: 1. Continue current medications. 2. Nutritional support. 3. Spinal precautions. 4. DVT prophylaxis. 5. Await evaluation by inpatient rehabilitation. 6. Stop IV cefepime after today, but continue ciprofloxacin. 7. Continue to monitor response to Lyrica. 8. Continue therapy. 9. Routine laboratory values. Job ID: [id number]
[2019-11-05] MEDS: Atorvastatin Calcium 10 MG TAB PO SCH (21:14)
[2019-11-06] MEDS: Aspirin 81 mg Enteric Coated Tablet PO SCH (08:13)
[2019-11-06] MEDS: Senokot S 8.6-50 MG TAB PO SCH ×2 (08:13→20:44)
[2019-11-06] MEDS: Pregabalin 75 MG CAP PO SCH ×2 (08:13→20:44)
[2019-11-06] MEDS: Tamsulosin HCl 0.4 MG CAP PO SCH ×2 (08:14→20:44)
[2019-11-06] MEDS: Ferrous Sulfate 325 MG TAB PO SCH ×2 (08:14→17:45)
[2019-11-06] MEDS: Pantoprazole 40 MG VIAL IVP SCH (08:14)
[2019-11-06] MEDS: Finasteride 5 MG TAB PO SCH (08:14)
[2019-11-06] MEDS: Calcium Carbonate 500 MG TAB PO SCH (08:14)
[2019-11-06] MEDS: Polyethylene Glycol 3350 17 GM Packet PO SCH (08:14)
--- NOTE | 2019-11-06 12:03 | PRG ---
DATE OF SERVICE: 11/06/2019 SUBJECTIVE: Mr. Manriquez has worked with Therapy. He denies any questions or concerns. He has done with his IV antibiotics. He is continuing on the Cipro. Advised nursing to make sure the inpatient rehab evaluation referral has been sent and [facility] will be by in the next day or two to evaluate him. He seems to be doing well on the Lyrica. Discussed with Therapy and nursing. OBJECTIVE: VITAL SIGNS: He is afebrile, heart rate 74, respirations 18, oxygen saturation 94% on room air, blood pressure 146/68. CARDIOVASCULAR: S1 and S2 plus. RESPIRATORY: Normal vesicular breath sounds. ABDOMEN: Soft, nontender. Bowel sounds heard in all quadrants. EXTREMITIES: Without cyanosis or clubbing. CENTRAL NERVOUS SYSTEM: Generalized weakness and possible peripheral neuropathy. IMPRESSION: 1. Resolving thoracic spine osteomyelitis and diskitis. 2. Hypertension. 3. Dyslipidemia. 4. Benign prostatic hyperplasia with urinary retention. 5. Iron-deficiency anemia. 6. Significant deconditioning. 7. Possible peripheral neuropathy. PLAN: 1. Continue current medications including Lyrica. 2. Heart-healthy diet. 3. Melendez catheter care. 4. Spinal precautions. 5. Remove PICC line. 6. [facility] eval. 7. Routine laboratory values. 8. Continue therapy. Job ID: [id number]
[2019-11-06] MEDS: Ciprofloxacin 500 MG TAB PO SCH (20:44)
[2019-11-06] MEDS: Atorvastatin Calcium 10 MG TAB PO SCH (20:44)
[2019-11-06] MEDS: oxyCODONE 5 MG TAB PO PRN (20:45)
[2019-11-06] MEDS: Nystatin Powder 15 GM BOT TOP SCH (20:46)
[2019-11-07] MEDS: Calcium Carbonate 500 MG TAB PO SCH (09:15)
[2019-11-07] MEDS: Ciprofloxacin 500 MG TAB PO SCH ×2 (09:15→20:39)
[2019-11-07] MEDS: Ferrous Sulfate 325 MG TAB PO SCH ×2 (09:15→16:12)
[2019-11-07] MEDS: Tamsulosin HCl 0.4 MG CAP PO SCH ×2 (09:16→20:39)
[2019-11-07] MEDS: Finasteride 5 MG TAB PO SCH (09:16)
[2019-11-07] MEDS: Pregabalin 75 MG CAP PO SCH (09:16)
[2019-11-07] MEDS: Polyethylene Glycol 3350 17 GM Packet PO SCH (09:18)
[2019-11-07] MEDS: Nystatin Powder 15 GM BOT TOP SCH (09:19)
[2019-11-07] MEDS: Senokot S 8.6-50 MG TAB PO SCH ×2 (09:20→20:45)
[2019-11-07] MEDS: oxyCODONE 5 MG TAB PO PRN ×2 (09:25→20:38)
[2019-11-07] MEDS: Aspirin 81 mg Enteric Coated Tablet PO SCH (09:31)
--- NOTE | 2019-11-07 13:54 | PRG ---
DATE OF SERVICE: 11/07/2019 SUBJECTIVE: Mr. Manriquez states he just got back in bed. He denies any questions or concerns. Apparently, inpatient rehabilitation has not come by to evaluate him yet. I had a long discussion with his yesterday in the parking lot. They apparently are now trying to get him into [facility] and I advised her that I am just trying to get all the options be ready for him and then we will wait for the family to make a decision. I did advise her that if they are still planning on going to see Dr. Hinds on the , it is best that he go there and then come back here, then get discharged to go to inpatient rehab, so they do not have to worry about transportation. OBJECTIVE: VITAL SIGNS: He is afebrile. Heart rate 81, respirations 20, oxygen saturation 95% on room air, blood pressure 118/70. CARDIOVASCULAR: S1 and S2 plus. RESPIRATORY: Normal vesicular breath sounds. ABDOMEN: Soft, nontender. Bowel sounds heard in all quadrants. EXTREMITIES: Without cyanosis or clubbing. CENTRAL NERVOUS SYSTEM: Grossly nonfocal. IMPRESSION: 1. Thoracic spine osteomyelitis and diskitis. 2. Hypertension. 3. Dyslipidemia. 4. Deconditioning. 5. BPH with urinary retention. 6. Possible peripheral neuropathy. PLAN: 1. Continue current medications, but increase Lyrica to 100 mg b.i.d. 2. Spinal precautions. 3. Continue Cipro. 4. Await inpatient rehabilitation. 5. Therapy. 6. Recheck CBC, CMP, CRP, and sedimentation rate tomorrow. Job ID: [id number]
[2019-11-07] MEDS: Pregabalin 50 MG CAP PO SCH (20:39)
[2019-11-07] MEDS: Atorvastatin Calcium 10 MG TAB PO SCH (20:39)
[2019-11-08 05:36] LABS: #Basophils 0.1 thou/uL (0.0-0.2); #Lymphocytes 1.6 thou/uL (1.20-3.40); #Monocytes 0.6 thou/uL (0.11-0.59); #Neutrophils 3.7 thou/uL (1.40-6.50); %Basophils 1.2 % (0.0-1.0); %Eosinophils 0.2 % (0.0-10.0); %Lymphocytes 26.4 % (21.0-51.0); %Monocytes 10.5 % (0.0-10.0); %Neutrophils 61.6 % (42.0-75.0); Hemoglobin 12.6 g/dL (14.0-18.0); Mean Corpuscular HGB CONC 30.1 g/dL (32.0-36.0); Mean Corpuscular Volume 89.8 fL (78.0-98.0); Mean Platelet Volume 8.4 fL (7.4-10.4); Platelet Count 171 thou/uL (130-400); RBC Distribution Width 13.7 % (11.5-14.5); Red Blood Cell (RBC) Count 4.65 mill/uL (4.70-6.10); White Blood Cell (WBC) Count 5.9 thou/uL (4.8-10.8)
[2019-11-08 05:51] LABS: ALT (SGPT) 20 U/L (8-55); AST (SGOT) 20 U/L (5-34); Albumin 3.2 g/dL (3.4-4.8); Alkaline Phosphatase 70 U/L (40-110); Anion Gap 14 mmol/L (10-20); BUN (Urea Nitrogen) 19 mg/dL (8.4-25.7); Bilirubin, Total 0.2 mg/dL (0.2-1.2); CRP (Inflammatory) Less than 0.50 mg/dL (= or < 0.5); Calc. Creatinine Clearance 78 mL/min (70-130); Calcium 8.9 mg/dL (7.8-10.44); Carbon Dioxide 26 mmol/L (23-31); Chloride 102 mmol/L (98-107); Estimated GFR-MDRD Greater than 90; Glucose 102 mg/dL (83-110); Protein, Total 6.2 g/dL (5.8-8.1); Sodium 138 mmol/L (136-145)
[2019-11-08] MEDS: Aspirin 81 mg Enteric Coated Tablet PO SCH (08:00)
[2019-11-08] MEDS: Calcium Carbonate 500 MG TAB PO SCH (08:00)
[2019-11-08] MEDS: Ferrous Sulfate 325 MG TAB PO SCH ×2 (08:00→16:37)
[2019-11-08] MEDS: Tamsulosin HCl 0.4 MG CAP PO SCH ×2 (08:00→20:50)
[2019-11-08] MEDS: Finasteride 5 MG TAB PO SCH (08:00)
[2019-11-08] MEDS: Ciprofloxacin 500 MG TAB PO SCH ×2 (08:00→20:50)
[2019-11-08] MEDS: Senokot S 8.6-50 MG TAB PO SCH ×2 (08:01→20:50)
[2019-11-08] MEDS: Polyethylene Glycol 3350 17 GM Packet PO SCH (08:01)
[2019-11-08] MEDS: Pregabalin 50 MG CAP PO SCH ×2 (08:01→20:50)
[2019-11-08] MEDS: oxyCODONE 5 MG TAB PO PRN ×2 (08:02→13:38)
[2019-11-08] MEDS: fentaNYL 50 mcg/hour Patch TD SCH (13:35)
--- NOTE | 2019-11-08 14:41 | PRG ---
DATE OF SERVICE: 11/08/2019 SUBJECTIVE: Mr. Manriquez is resting in bed. Denies any concerns. Tolerating the increased dose of Lyrica. He still has not been evaluated by inpatient rehabilitation yet. No family at bedside. OBJECTIVE: VITAL SIGNS: He is afebrile. Heart rate 88, respirations 18, oxygen saturation 95% on room air, blood pressure 119/68. CARDIOVASCULAR SYSTEM: S1 and S2 plus. RESPIRATORY SYSTEM: Normal vesicular breath sounds. ABDOMEN: Soft and nontender. Bowel sounds heard in all quadrants. EXTREMITIES: Without cyanosis or clubbing. CENTRAL NERVOUS SYSTEM: Improving deconditioning. LABORATORY DATA: Laboratory valuesshow a white count of 5.9, H and H are 12.6 and 41.8. Sedimentation rate is pending. His sodium is 138, potassium 4.0. BUN and creatinine are 19 and 0.72. CRP is less than 0.5. IMPRESSION: 1. Thoracic spinal osteomyelitis and diskitis, now on suppressive oral antibiotics. 2. Hypertension. 3. Dyslipidemia. 4. Benign prostatic hyperplasia with Melendez catheter. 5. Peripheral neuropathy. 6. Iron deficiency anemia, improving. 7. Deconditioning. PLAN: 1. Continue current medications. 2. Heart healthy diet. 3. Melendez catheter care. 4. Spinal precautions. 5. DVT prophylaxis with PlexiPulses. 6. Decubitus precaution. 7. Await inpatient rehab evaluation. 8. Discharge planning. Job ID: [id number]
[2019-11-08] MEDS: Atorvastatin Calcium 10 MG TAB PO SCH (20:50)
[2019-11-09] MEDS: oxyCODONE 5 MG TAB PO PRN (08:10)
[2019-11-09] MEDS: Ciprofloxacin 500 MG TAB PO SCH ×2 (08:11→20:45)
[2019-11-09] MEDS: Aspirin 81 mg Enteric Coated Tablet PO SCH (08:11)
[2019-11-09] MEDS: Ferrous Sulfate 325 MG TAB PO SCH ×2 (08:11→16:10)
[2019-11-09] MEDS: Calcium Carbonate 500 MG TAB PO SCH (08:11)
[2019-11-09] MEDS: Tamsulosin HCl 0.4 MG CAP PO SCH ×2 (08:11→20:45)
[2019-11-09] MEDS: Pregabalin 50 MG CAP PO SCH ×2 (08:11→20:45)
[2019-11-09] MEDS: Finasteride 5 MG TAB PO SCH (08:12)
[2019-11-09] MEDS: Senokot S 8.6-50 MG TAB PO SCH ×2 (08:12→20:45)
[2019-11-09] MEDS: Polyethylene Glycol 3350 17 GM Packet PO SCH (08:14)
--- NOTE | 2019-11-09 16:05 | PRG ---
DATE OF SERVICE: 11/09/2019 SUBJECTIVE: Mr. Manriquez is doing the same. Resting in bed. He states that evaluate him from inpatient rehab. OBJECTIVE: VITAL SIGNS: He is afebrile. Heart rate is 73, respirations 20, oxygen saturation 95% on room air, blood pressure 123/61. CARDIOVASCULAR SYSTEM: S1 and S2 plus. RESPIRATORY SYSTEM: Normal vesicular breath sounds. ABDOMEN: Soft and nontender. Bowel sounds heard in all quadrants. EXTREMITIES: Without cyanosis or clubbing. IMPRESSION: 1. Thoracic spine osteomyelitis and diskitis. 2. Hypertension. 3. Dyslipidemia. 4. Benign prostatic hypertrophy with urinary retention. 5. Iron deficiency anemia. 6. 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 PLAN: 1. Continue current medications. 2. Heart healthy diet. 3. Melendez catheter care. 4. Continue ciprofloxacin. 5. Therapy. 6. Spinal precautions. 7. Await inpatient rehab evaluation. They were supposed to . Job ID: [id number]
[2019-11-09] MEDS: Atorvastatin Calcium 10 MG TAB PO SCH (20:45)
[2019-11-10] MEDS: Ciprofloxacin 500 MG TAB PO SCH ×2 (08:04→20:33)
[2019-11-10] MEDS: Polyethylene Glycol 3350 17 GM Packet PO SCH (08:04)
[2019-11-10] MEDS: Senokot S 8.6-50 MG TAB PO SCH ×2 (08:04→20:33)
[2019-11-10] MEDS: Tamsulosin HCl 0.4 MG CAP PO SCH ×2 (08:04→20:33)
[2019-11-10] MEDS: Finasteride 5 MG TAB PO SCH (08:04)
[2019-11-10] MEDS: Ferrous Sulfate 325 MG TAB PO SCH ×2 (08:04→16:14)
[2019-11-10] MEDS: Pregabalin 50 MG CAP PO SCH ×2 (08:05→20:34)
[2019-11-10] MEDS: Aspirin 81 mg Enteric Coated Tablet PO SCH (08:05)
[2019-11-10] MEDS: Calcium Carbonate 500 MG TAB PO SCH (08:05)
[2019-11-10] MEDS: oxyCODONE 5 MG TAB PO PRN ×2 (08:14→20:33)
--- NOTE | 2019-11-10 14:34 | PRG ---
DATE OF SERVICE: 11/10/2019 SUBJECTIVE: Mr. Manriquez is up in bed. He denies any questions or concerns. He states that he is doing the same. No family at bedside. OBJECTIVE: VITAL SIGNS: He is afebrile. Heart rate 66, respirations 16, oxygen saturation 94% on room air, blood pressure 116/62. CARDIOVASCULAR: S1 and S2 plus. RESPIRATORY: Normal vesicular breath sounds. ABDOMEN: Soft, nontender. Bowel sounds heard in all quadrants. EXTREMITIES: Without cyanosis or clubbing. CENTRAL NERVOUS SYSTEM: Generalized weakness otherwise nonfocal. IMPRESSION: 1. Thoracic spine osteomyelitis and diskitis. 2. Hypertension. 3. Dyslipidemia. 4. BPH with urinary retention. 5. Iron deficiency anemia. 6. Possible peripheral neuropathy. 7. Deconditioning. PLAN: 1. Continue current medications. 2. Heart healthy diet. 3. Melendez catheter care. 4. Inpatient rehab evaluation. 5. Continue therapy. 6. Routine laboratory values. 7. Spinal precautions. Job ID: [id number]
[2019-11-10] MEDS: Atorvastatin Calcium 10 MG TAB PO SCH (20:33)
[2019-11-11] MEDS: Ferrous Sulfate 325 MG TAB PO SCH ×2 (08:04→16:34)
[2019-11-11] MEDS: Aspirin 81 mg Enteric Coated Tablet PO SCH (08:04)
[2019-11-11] MEDS: Ciprofloxacin 500 MG TAB PO SCH ×2 (08:04→20:48)
[2019-11-11] MEDS: Senokot S 8.6-50 MG TAB PO SCH ×2 (08:05→20:47)
[2019-11-11] MEDS: Polyethylene Glycol 3350 17 GM Packet PO SCH (08:05)
[2019-11-11] MEDS: Calcium Carbonate 500 MG TAB PO SCH (08:05)
[2019-11-11] MEDS: Finasteride 5 MG TAB PO SCH (08:05)
[2019-11-11] MEDS: Tamsulosin HCl 0.4 MG CAP PO SCH ×2 (08:05→20:48)
[2019-11-11] MEDS: Pregabalin 50 MG CAP PO SCH ×2 (08:06→20:47)
--- NOTE | 2019-11-11 13:06 | PRG ---
DATE OF SERVICE: 11/11/2019 SUBJECTIVE: Mr. Manriquez is up in his chair. He just finished his lunch. He denies any questions or concerns. Awaiting inpatient rehab evaluation, they were supposed to be here last week. I called him again on Monday and they are working on it. Apparently, I called him again today and the restaurant front manager is supposed to be calling me. OBJECTIVE: VITAL SIGNS: He is afebrile. Heart rate 97, respirations 20, oxygen saturation 94% on room air, blood pressure 121/71. CARDIOVASCULAR: S1 and S2 plus. RESPIRATORY: Normal vesicular breath sounds. ABDOMEN: Soft, nontender. Bowel sounds heard in all quadrants. EXTREMITIES: Without cyanosis or clubbing. CENTRAL NERVOUS SYSTEM: Improving deconditioning. IMPRESSION: 1. Thoracic spine osteomyelitis and diskitis, much improved. 2. Hypertension. 3. Dyslipidemia. 4. BPH with urinary retention. 5. Deconditioning. 6. Iron deficiency anemia. PLAN: 1. Continue current medications. 2. Heart healthy diet. 3. Spinal precautions. 4. Await inpatient rehab evaluation. 5. Discussed with the patient in detail. All questions answered. 6. Continue therapy. 7. Discharge planning. Job ID: [id number]
[2019-11-11] MEDS: fentaNYL 50 mcg/hour Patch TD SCH (13:14)
[2019-11-11] MEDS: oxyCODONE 5 MG TAB PO PRN (19:09)
[2019-11-11] MEDS: Atorvastatin Calcium 10 MG TAB PO SCH (20:48)
[2019-11-12] MEDS: Senokot S 8.6-50 MG TAB PO SCH ×2 (08:11→20:49)
[2019-11-12] MEDS: Ferrous Sulfate 325 MG TAB PO SCH ×2 (08:11→17:19)
[2019-11-12] MEDS: Ciprofloxacin 500 MG TAB PO SCH ×2 (08:11→20:49)
[2019-11-12] MEDS: Calcium Carbonate 500 MG TAB PO SCH (08:11)
[2019-11-12] MEDS: Finasteride 5 MG TAB PO SCH (08:11)
[2019-11-12] MEDS: Aspirin 81 mg Enteric Coated Tablet PO SCH (08:11)
[2019-11-12] MEDS: Pregabalin 50 MG CAP PO SCH ×2 (08:11→20:49)
[2019-11-12] MEDS: Tamsulosin HCl 0.4 MG CAP PO SCH ×2 (08:11→20:49)
[2019-11-12] MEDS: Polyethylene Glycol 3350 17 GM Packet PO SCH (08:12)
--- NOTE | 2019-11-12 12:49 | PRG ---
DATE OF SERVICE: 11/12/2019 SUBJECTIVE: Mr. Manriquez is up in his chair. He just finished his lunch. I had a long discussion with Sedrick at [facility]. The reason that he did not come by to evaluate him last week with apparently daughter was stating that she might take Mr. Manriquez to [facility] and they will only accept the patient if he is coming from an inpatient hospital setting. Mr. Manriquez states that him and his daughter have actually decided not to go to [place], so Sedrick is supposed to come by and evaluate him today. Plan is for him to go to see Dr. Hinds, the plastic surgeon and come back here and if he is accepted to inpatient rehab, and if family has not changed their mind again, then he will be transferred to inpatient rehab on . OBJECTIVE: VITAL SIGNS: He is afebrile, heart rate 74, respirations 18, oxygen saturation 94% on room air, blood pressure 109/64. CARDIOVASCULAR SYSTEM: S1 and S2 plus. RESPIRATORY SYSTEM: Normal vesicular breath sounds. ABDOMEN: Soft, nontender. Bowel sounds heard in all quadrants. EXTREMITIES: Without cyanosis or clubbing. CENTRAL NERVOUS SYSTEM: Generalized weakness. Otherwise, nonfocal. IMPRESSION: 1. Thoracic spine osteomyelitis and diskitis. 2. Hypertension. 3. Dyslipidemia. 4. Benign prostatic hypertrophy with urinary retention. 5. Iron deficiency anemia. 6. Peripheral neuropathy. PLAN: 1. Continue current medications. 2. Nutritional support with heart healthy diet. 3. Accu-Cheks. 4. Spinal precautions. 5. Physical therapy. 6. DVT and stress ulcer prophylaxis. 7. Routine laboratory values. 8. Discharge planning. Job ID: [id number]
[2019-11-12] MEDS: oxyCODONE 5 MG TAB PO PRN (20:47)
[2019-11-12] MEDS: Atorvastatin Calcium 10 MG TAB PO SCH (20:49)
[2019-11-13] MEDS: Aspirin 81 mg Enteric Coated Tablet PO SCH (07:59)
[2019-11-13] MEDS: Ciprofloxacin 500 MG TAB PO SCH ×2 (07:59→20:23)
[2019-11-13] MEDS: Finasteride 5 MG TAB PO SCH (07:59)
[2019-11-13] MEDS: Polyethylene Glycol 3350 17 GM Packet PO SCH (07:59)
[2019-11-13] MEDS: oxyCODONE 5 MG TAB PO PRN ×2 (07:59→14:13)
[2019-11-13] MEDS: Ferrous Sulfate 325 MG TAB PO SCH ×2 (08:00→17:15)
[2019-11-13] MEDS: Senokot S 8.6-50 MG TAB PO SCH ×2 (08:00→20:24)
[2019-11-13] MEDS: Tamsulosin HCl 0.4 MG CAP PO SCH ×2 (08:00→20:23)
[2019-11-13] MEDS: Pregabalin 50 MG CAP PO SCH ×2 (08:00→20:24)
[2019-11-13] MEDS: Calcium Carbonate 500 MG TAB PO SCH (08:00)
--- NOTE | 2019-11-13 12:34 | PRG ---
DATE OF SERVICE: 11/13/2019 SUBJECTIVE: Mr. Manriquez is up in his chair. He is getting ready to get back in bed. He has his surgical procedure scheduled for 3:30 this afternoon. Family has changed their mind and now their plan is to have him come back and continue therapy here until they finalize the plans for his cancer. Once that is done, daughter wants him to see Urology and see what needs to be done to have him be without his catheter. Therapy here feels that he is improving enough that he qualifies to stay here, so the plan have been updated to the nurse's station. OBJECTIVE: VITAL SIGNS: He is afebrile, heart rate 82, respirations 18, oxygen saturation 92% on room air, blood pressure 130/68. CARDIOVASCULAR SYSTEM: S1, S2 plus. RESPIRATORY: Normal vesicular breath sounds. ABDOMEN: Soft nontender. Bowel sounds heard in all quadrants. EXTREMITIES: Without cyanosis, clubbing. CENTRAL NERVOUS SYSTEM: Improving deconditioning. IMPRESSION: 1. Thoracic spine osteomyelitis and diskitis, improving. 2. Hypertension. 3. Dyslipidemia. 4. Benign prostatic hypertrophy with urinary retention. 5. 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 6. Improving deconditioning. 7. Iron deficiency anemia. PLAN: 1. Continue current medications. 2. Heart healthy diet. 3. Melendez catheter care. 4. Spinal precautions. 5. Continue therapy. 6. I await family's update on the progress and the pathology on the cancer and see if he needs to be scheduled with Dr. Hernandez, Urology. Job ID: [id number]
[2019-11-13] MEDS: Atorvastatin Calcium 10 MG TAB PO SCH (20:23)
[2019-11-13] MEDS: Nystatin Powder 15 GM BOT TOP SCH (20:25)
[2019-11-14] MEDS: Ferrous Sulfate 325 MG TAB PO SCH ×2 (08:04→17:19)
[2019-11-14] MEDS: Pregabalin 50 MG CAP PO SCH ×2 (08:05→20:43)
[2019-11-14] MEDS: Calcium Carbonate 500 MG TAB PO SCH (08:05)
[2019-11-14] MEDS: Polyethylene Glycol 3350 17 GM Packet PO SCH (08:05)
[2019-11-14] MEDS: Aspirin 81 mg Enteric Coated Tablet PO SCH (08:05)
[2019-11-14] MEDS: Ciprofloxacin 500 MG TAB PO SCH ×2 (08:05→20:43)
[2019-11-14] MEDS: Finasteride 5 MG TAB PO SCH (08:07)
[2019-11-14] MEDS: Senokot S 8.6-50 MG TAB PO SCH ×2 (08:07→20:43)
[2019-11-14] MEDS: Tamsulosin HCl 0.4 MG CAP PO SCH ×2 (08:07→20:43)
[2019-11-14] MEDS: oxyCODONE 5 MG TAB PO PRN ×2 (08:07→17:22)
[2019-11-14] MEDS: Nystatin Powder 15 GM BOT TOP SCH (08:12)
--- NOTE | 2019-11-14 13:25 | PRG ---
DATE OF SERVICE: 11/14/2019 SUBJECTIVE: Mr. King is up in bed. Denies any concerns. He apparently met with Dr. Hinds and discussed all the different options for his possible sweat gland cancer to his face. They decided not to do anything and wait until it gets worse before they seek opinion and most likely that will be from [facility]. The patient states that he wants to continue therapy here and get stronger before he considers going to inpatient rehab because he thinks that he may not be able to do 3 hours of therapy. Waiting for his daughter to let me know anything different for now OBJECTIVE: VITAL SIGNS: He is afebrile, heart rate is 94, respirations 18, oxygen saturation 93% on room air, and blood pressure 122/58. CARDIOVASCULAR SYSTEM: S1 and S2 plus. RESPIRATORY SYSTEM: Normal vesicular breath sounds. ABDOMEN: Soft, nontender. Bowel sounds heard in all quadrants. EXTREMITIES: Without cyanosis or clubbing. IMPRESSION: 1. Resolving thoracic spine osteomyelitis and diskitis. 2. Hypertension. 3. Dyslipidemia. 4. Benign prostatic hypertrophy with urinary retention. 5. Iron deficiency anemia. 6. 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 PLAN: 1. Continue current medications. 2. Heart healthy diet. 3. Melendez catheter care. 4. Monitor blood pressure and adjust medications. 5. Spinal precautions. 6. Physical therapy. 7. Routine laboratory values. 8. No family at bedside. 9. Discussed with the patient in detail. All questions answered. Job ID: [id number]
[2019-11-14] MEDS: fentaNYL 50 mcg/hour Patch TD SCH (13:57)
[2019-11-14] MEDS: Atorvastatin Calcium 10 MG TAB PO SCH (20:43)
[2019-11-15] MEDS: Ferrous Sulfate 325 MG TAB PO SCH ×2 (08:01→16:59)
[2019-11-15] MEDS: Polyethylene Glycol 3350 17 GM Packet PO SCH (08:01)
[2019-11-15] MEDS: Aspirin 81 mg Enteric Coated Tablet PO SCH (08:02)
[2019-11-15] MEDS: Ciprofloxacin 500 MG TAB PO SCH ×2 (08:02→21:01)
[2019-11-15] MEDS: Pregabalin 50 MG CAP PO SCH ×2 (08:02→21:01)
[2019-11-15] MEDS: oxyCODONE 5 MG TAB PO PRN (08:03)
[2019-11-15] MEDS: Tamsulosin HCl 0.4 MG CAP PO SCH ×2 (08:04→21:01)
[2019-11-15] MEDS: Finasteride 5 MG TAB PO SCH (08:04)
[2019-11-15] MEDS: Calcium Carbonate 500 MG TAB PO SCH (08:04)
[2019-11-15] MEDS: Senokot S 8.6-50 MG TAB PO SCH ×2 (08:04→21:01)
--- NOTE | 2019-11-15 09:04 | PRG ---
DATE OF SERVICE: 11/15/2019 SUBJECTIVE: Mr. Manriquez is up in bed. He is awaiting on therapy. Denies any questions or concerns. No family at bedside. Discussed with nursing. OBJECTIVE: VITAL SIGNS: He is afebrile. Heart rate is 79, respirations 20, oxygen saturation 94% on room air, blood pressure 123/64. CARDIOVASCULAR SYSTEM: S1, S2 plus. RESPIRATORY SYSTEM: Normal vesicular breath sounds. ABDOMEN: Soft, nontender. Bowel sounds heard in all quadrants. EXTREMITIES: Without cyanosis or clubbing. CENTRAL NERVOUS SYSTEM: Improving deconditioning. IMPRESSION: 1. Resolving thoracic spine osteomyelitis and diskitis. 2. Hypertension. 3. Dyslipidemia. 4. Benign prostatic hypertrophy with urinary retention. 5. Iron deficiency anemia. 6. Deconditioning. PLAN: 1. Continue current medications. 2. Heart-healthy diet. 3. Continue spinal precautions. 4. Physical therapy. 5. Melendez catheter care. 6. Routine laboratory values. Job ID: [id number]
[2019-11-15] MEDS: Atorvastatin Calcium 10 MG TAB PO SCH (21:01)
[2019-11-16 05:29] LABS: #Basophils 0.1 thou/uL (0.0-0.2); #Eosinphils 0.1 thou/uL (0.0-0.7); #Lymphocytes 1.6 thou/uL (1.20-3.40); #Monocytes 0.7 thou/uL (0.11-0.59); %Basophils 1.4 % (0.0-1.0); %Eosinophils 0.9 % (0.0-10.0); %Lymphocytes 24.2 % (21.0-51.0); %Neutrophils 62.4 % (42.0-75.0); Hemoglobin 12.4 g/dL (14.0-18.0); Mean Corpuscular HGB CONC 30.1 g/dL (32.0-36.0); Mean Corpuscular Hemoglobin 26.7 pg (27.0-31.0); Mean Corpuscular Volume 88.8 fL (78.0-98.0); Mean Platelet Volume 9.3 fL (7.4-10.4); Platelet Count 176 thou/uL (130-400); RBC Distribution Width 13.6 % (11.5-14.5); Red Blood Cell (RBC) Count 4.66 mill/uL (4.70-6.10); White Blood Cell (WBC) Count 6.5 thou/uL (4.8-10.8)
[2019-11-16 05:42] LABS: ALT (SGPT) 19 U/L (8-55); AST (SGOT) 19 U/L (5-34); Albumin 3.2 g/dL (3.4-4.8); Alkaline Phosphatase 71 U/L (40-110); Anion Gap 15 mmol/L (10-20); BUN (Urea Nitrogen) 22 mg/dL (8.4-25.7); Bilirubin, Total 0.2 mg/dL (0.2-1.2); Calc. Creatinine Clearance 74 mL/min (70-130); Calcium 8.6 mg/dL (7.8-10.44); Carbon Dioxide 25 mmol/L (23-31); Chloride 105 mmol/L (98-107); Estimated GFR-MDRD Greater than 90; Globulin 2.8 g/dL (2.4-3.5); Glucose 102 mg/dL (83-110); Potassium 3.8 mmol/L (3.5-5.1); Sodium 141 mmol/L (136-145)
[2019-11-16] MEDS: Ferrous Sulfate 325 MG TAB PO SCH ×2 (08:03→16:19)
[2019-11-16] MEDS: Polyethylene Glycol 3350 17 GM Packet PO SCH (08:03)
[2019-11-16] MEDS: Pregabalin 50 MG CAP PO SCH ×2 (08:04→20:50)
[2019-11-16] MEDS: Tamsulosin HCl 0.4 MG CAP PO SCH ×2 (08:04→20:50)
[2019-11-16] MEDS: oxyCODONE 5 MG TAB PO PRN (08:05)
[2019-11-16] MEDS: Senokot S 8.6-50 MG TAB PO SCH ×2 (08:05→20:50)
[2019-11-16] MEDS: Ciprofloxacin 500 MG TAB PO SCH ×2 (08:05→20:50)
[2019-11-16] MEDS: Aspirin 81 mg Enteric Coated Tablet PO SCH (08:05)
[2019-11-16] MEDS: Finasteride 5 MG TAB PO SCH (08:06)
[2019-11-16] MEDS: Calcium Carbonate 500 MG TAB PO SCH (08:06)
[2019-11-16] MEDS: Atorvastatin Calcium 10 MG TAB PO SCH (20:50)
[2019-11-17] MEDS: Calcium Carbonate 500 MG TAB PO SCH (08:00)
[2019-11-17] MEDS: Ferrous Sulfate 325 MG TAB PO SCH ×2 (08:00→17:03)
[2019-11-17] MEDS: Pregabalin 50 MG CAP PO SCH ×2 (08:00→20:40)
[2019-11-17] MEDS: Tamsulosin HCl 0.4 MG CAP PO SCH ×2 (08:01→20:40)
[2019-11-17] MEDS: Aspirin 81 mg Enteric Coated Tablet PO SCH (08:01)
[2019-11-17] MEDS: Senokot S 8.6-50 MG TAB PO SCH ×2 (08:01→20:40)
[2019-11-17] MEDS: Finasteride 5 MG TAB PO SCH (08:01)
[2019-11-17] MEDS: Polyethylene Glycol 3350 17 GM Packet PO SCH (08:01)
--- NOTE | 2019-11-17 08:10 | PRG ---
DATE OF SERVICE: 11/16/2019 SUBJECTIVE: The patient is lying in bed, feels well. No complaints. Back pain at rest. No complaints by the nurses. No family at bedside. OBJECTIVE: VITAL SIGNS: Temperature is 98.3, pulse 78, respirations 20, O2 sats 94% on room air, blood pressure is 118/70. LABORATORY DATA: White count 6500, hematocrit 41, hemoglobin 12. Sodium is 141, potassium 3.8, chloride 105, bicarb 25, BUN 22, creatinine 0.75, glucose 102, albumin 3.2, increased from 2.8 last month. ASSESSMENT: 1. Resolving thoracic osteomyelitis. 2. Stable hypertension. 3. Improving deconditioning. PLAN: 1. Continue PT, OT. 2. Continue Melendez care. 3. Continue current medications. Job ID: [id number]
[2019-11-17] MEDS: fentaNYL 50 mcg/hour Patch TD SCH (14:04)
--- NOTE | 2019-11-17 18:33 | PRG ---
DATE OF SERVICE: 11/17/2019 SUBJECTIVE: The patient is lying in bed, eating supper, feels well with minimal back pain. No shortness of breath, chest pain, fever or chills. OBJECTIVE: VITAL SIGNS: Shows temperature is 98.3, pulse 93, respirations 19, O2 sats 94% on room air, blood pressure is 119/69. LUNGS: Clear. CARDIAC: Showed regular rhythm. ABDOMEN: Soft and nontender. SKIN/EXTREMITIES: Show no edema, clubbing, or cyanosis. Still tenderness to palpation and thoracic spine. LABORATORY DATA: White count yesterday 6500, hematocrit 41, hemoglobin 12. Sodium 141, potassium 3.8, chloride 105, bicarb 25, BUN 22, creatinine 0.75. Albumin 3.2. Liver function is normal. ASSESSMENT: 1. Resolving thoracic spine osteomyelitis. 2. Stable hypertension. 3. Stable benign prostatic hypertrophy. 4. Slowly improving deconditioning. PLAN: 1. Continue Melendez catheter care. 2. Continue PT/OT. 3. Continue oral antibiotics, osteomyelitis. 4. Continue to monitor vital signs closely. Job ID: [id number]
[2019-11-17] MEDS: Atorvastatin Calcium 10 MG TAB PO SCH (20:40)
[2019-11-18] MEDS: Polyethylene Glycol 3350 17 GM Packet PO SCH (08:28)
[2019-11-18] MEDS: Senokot S 8.6-50 MG TAB PO SCH ×2 (08:29→21:03)
[2019-11-18] MEDS: Pregabalin 50 MG CAP PO SCH ×3 (08:29→21:03)
[2019-11-18] MEDS: Finasteride 5 MG TAB PO SCH (08:30)
[2019-11-18] MEDS: Aspirin 81 mg Enteric Coated Tablet PO SCH (08:30)
[2019-11-18] MEDS: Ferrous Sulfate 325 MG TAB PO SCH ×2 (08:30→16:57)
[2019-11-18] MEDS: Calcium Carbonate 500 MG TAB PO SCH (08:30)
[2019-11-18] MEDS: Tamsulosin HCl 0.4 MG CAP PO SCH ×2 (08:30→21:03)
[2019-11-18] MEDS: oxyCODONE 5 MG TAB PO PRN (14:51)
--- NOTE | 2019-11-18 15:49 | PRG ---
DATE OF SERVICE: 11/18/2019 SUBJECTIVE: Mr. Manriquez is resting in bed. He states that he is noticing much more tingling to his feet today. He wonders if his Lyrica dose can be increased. We will change him to Lyrica 100 mg t.i.d. He is also agreeable to try in and out caths, so I will tell nursing to remove his Melendez do bladder scans every 6 hours and to do in- and out catheterization if PVR more than 400 mL. OBJECTIVE: VITAL SIGNS: The patient is afebrile. Heart rate 69, respirations 18, oxygen saturation 93% on room air, and blood pressure 110/72. CARDIOVASCULAR SYSTEM: S1 and S2 plus. RESPIRATORY SYSTEM: Normal vesicular breath sounds. ABDOMEN: Soft, nontender. Bowel sounds heard in all quadrants. EXTREMITIES: Without cyanosis or clubbing. LABORATORY DATA: White count is 6.5, H and H are 12.4 and 41.3. Sodium 141, potassium 3.8, BUN and creatinine are 22 and 1.75. IMPRESSION: 1. Resolving thoracic spine osteomyelitis and diskitis. 2. Hypertension. 3. Benign prostatic hypertrophy with urinary retention. 4. Dyslipidemia. 5. Iron deficiency anemia. 6. Peripheral neuropathy. 7. Deconditioning. PLAN: 1. Increase Lyrica to 100 mg t.i.d. 2. Renew oxycodone. 3. Discontinue Melendez catheter and voiding trial. 4. Bladder scan q.6 and in and out catheterization if PVR greater than 400. 5. Continue therapy. 6. Routine laboratory values. 7. DVT prophylaxis with PlexiPulses. Job ID: [id number]
[2019-11-18] MEDS: Atorvastatin Calcium 10 MG TAB PO SCH (21:03)
[2019-11-19] MEDS: Aspirin 81 mg Enteric Coated Tablet PO SCH (08:34)
[2019-11-19] MEDS: Ferrous Sulfate 325 MG TAB PO SCH ×2 (08:34→16:38)
[2019-11-19] MEDS: Pregabalin 50 MG CAP PO SCH ×3 (08:34→20:22)
[2019-11-19] MEDS: Finasteride 5 MG TAB PO SCH (08:34)
[2019-11-19] MEDS: Senokot S 8.6-50 MG TAB PO SCH ×2 (08:35→20:20)
[2019-11-19] MEDS: Calcium Carbonate 500 MG TAB PO SCH (08:36)
[2019-11-19] MEDS: Tamsulosin HCl 0.4 MG CAP PO SCH ×2 (08:36→20:21)
[2019-11-19] MEDS: Polyethylene Glycol 3350 17 GM Packet PO SCH (08:36)
[2019-11-19] MEDS ORDERED: Ciprofloxacin 500 MG TAB PO SCH (09:15)
[2019-11-19] MEDS: oxyCODONE 5 MG TAB PO PRN ×3 (11:23→20:20)
--- NOTE | 2019-11-19 13:16 | PRG ---
DATE OF SERVICE: 11/19/2019 SUBJECTIVE: Mr. Manriquez is up in his chair. He has his spinal brace on. He is noticing some incontinence. He is also requiring periodic in- and out catheterization. Overall, he states that he is doing better. He feels like the increase in Lyrica is helping, but it is causing some somnolence. OBJECTIVE: VITAL SIGNS: He is afebrile, heart rate 76, respirations 18, oxygen saturation 94% on room air, and blood pressure 109/69. CARDIOVASCULAR SYSTEM: S1 and S2 plus. RESPIRATORY SYSTEM: Normal vesicular breath sounds. ABDOMEN: Soft and nontender. Bowel sounds heard in all quadrants. EXTREMITIES: Without cyanosis or clubbing. CENTRAL NERVOUS SYSTEM: Generalized weakness. IMPRESSION: 1. Thoracic spinal osteomyelitis and diskitis. 2. Hypertension. 3. Dyslipidemia. 4. Benign prostatic hyperplasia with urinary retention. 5. Iron deficiency anemia. 6. Peripheral neuropathy. PLAN: 1. Continue current medications. 2. Heart healthy diet. 3. Monitor postvoid residual and in and out catheterization. 4. Continue spinal precautions. 5. Physical therapy. 6. I await family decision on when they want him transfer to rehab. Job ID: [id number]
[2019-11-19] MEDS: Atorvastatin Calcium 10 MG TAB PO SCH (20:21)
[2019-11-19] MEDS: Ciprofloxacin 500 MG TAB PO SCH (20:23)
[2019-11-20] MEDS: Ciprofloxacin 500 MG TAB PO SCH ×2 (05:34→20:35)
[2019-11-20] MEDS: Pregabalin 50 MG CAP PO SCH ×3 (08:41→20:36)
[2019-11-20] MEDS: Ferrous Sulfate 325 MG TAB PO SCH ×2 (08:41→17:52)
[2019-11-20] MEDS: Polyethylene Glycol 3350 17 GM Packet PO SCH (08:41)
[2019-11-20] MEDS: Senokot S 8.6-50 MG TAB PO SCH ×2 (08:45→20:35)
[2019-11-20] MEDS: Aspirin 81 mg Enteric Coated Tablet PO SCH (08:45)
[2019-11-20] MEDS: Tamsulosin HCl 0.4 MG CAP PO SCH ×2 (08:45→20:35)
[2019-11-20] MEDS: Finasteride 5 MG TAB PO SCH (08:45)
[2019-11-20] MEDS: Calcium Carbonate 500 MG TAB PO SCH (08:45)
[2019-11-20] MEDS: oxyCODONE 5 MG TAB PO PRN ×2 (08:49→20:35)
--- NOTE | 2019-11-20 13:16 | PRG ---
DATE OF SERVICE: 11/20/2019 SUBJECTIVE: Mr. Manriquez is resting in bed. He states that he is feeling more confused. He denies any fever or chills. Denies any issues with urination. Reviewed nursing notes and bladder scan 248 mL. He is still having occasional incontinence. He has not required any in and out catheterizations in a while. OBJECTIVE: VITAL SIGNS: He is afebrile. Heart rate 100, respirations 20, oxygen saturation 93% on room air, blood pressure 152/66. CARDIOVASCULAR: S1 and S2 plus. RESPIRATORY: Normal vesicular breath sounds. ABDOMEN: Soft and nontender. Bowel sounds heard in all quadrants. EXTREMITIES: Without cyanosis or clubbing. CENTRAL NERVOUS SYSTEM: Generalized weakness, otherwise nonfocal. IMPRESSION: 1. Resolving thoracic spinal osteomyelitis and diskitis. 2. Hypertension. 3. Dyslipidemia. 4. Benign prostatic hypertrophy with improving urinary retention. 5. Peripheral neuropathy. 6. Iron deficiency anemia. 7. Persistent deconditioning. PLAN: 1. Continue current medications. 2. Heart healthy diet. 3. Monitor system. 4. Check laboratory values to rule out any metabolic or infectious etiology for his confusion. I really think this is more related to the increase in his Lyrica. I advised him that if the laboratory values come back normal and cultures are negative and if the mental status has not cleared up in the next couple of days, then we will reduce his depths. No family at bedside. . 5. Continue current medications. 6. Rule out infectious or metabolic etiology. 7. Spinal precautions. 8. Physical therapy. 9. Nutritional support. 10. Monitor system. Job ID: [id number]
[2019-11-20] MEDS: fentaNYL 50 mcg/hour Patch TD SCH (14:38)
[2019-11-20 15:45] LABS: #Basophils 0.1 thou/uL (0.0-0.2); #Eosinphils 0.2 thou/uL (0.0-0.7); #Lymphocytes 1.5 thou/uL (1.20-3.40); #Neutrophils 6.9 thou/uL (1.40-6.50); %Basophils 1.5 % (0.0-1.0); %Eosinophils 1.9 % (0.0-10.0); %Lymphocytes 15.8 % (21.0-51.0); %Monocytes 9.8 % (0.0-10.0); %Neutrophils 71.1 % (42.0-75.0); Hemoglobin 13.6 g/dL (14.0-18.0); Mean Corpuscular HGB CONC 30.1 g/dL (32.0-36.0); Mean Corpuscular Hemoglobin 26.7 pg (27.0-31.0); Mean Corpuscular Volume 88.6 fL (78.0-98.0); Mean Platelet Volume 9.3 fL (7.4-10.4); Platelet Count 203 thou/uL (130-400); RBC Distribution Width 13.7 % (11.5-14.5); Red Blood Cell (RBC) Count 5.11 mill/uL (4.70-6.10); White Blood Cell (WBC) Count 9.7 thou/uL (4.8-10.8)
[2019-11-20 16:00] LABS: ALT (SGPT) 31 U/L (8-55); AST (SGOT) 22 U/L (5-34); Albumin 3.5 g/dL (3.4-4.8); Alkaline Phosphatase 79 U/L (40-110); Anion Gap 14 mmol/L (10-20); BUN (Urea Nitrogen) 26 mg/dL (8.4-25.7); Bilirubin, Total 0.2 mg/dL (0.2-1.2); Calc. Creatinine Clearance 66 mL/min (70-130); Calcium 8.8 mg/dL (7.8-10.44); Carbon Dioxide 27 mmol/L (23-31); Chloride 102 mmol/L (98-107); Estimated GFR-MDRD 85; Globulin 3.2 g/dL (2.4-3.5); Glucose 123 mg/dL (83-110); Protein, Total 6.7 g/dL (5.8-8.1); Sodium 139 mmol/L (136-145)
[2019-11-20] MEDS: Atorvastatin Calcium 10 MG TAB PO SCH (20:35)
[2019-11-20] MEDS: Nystatin Powder 15 GM BOT TOP SCH (20:38)
[2019-11-21] MEDS: Ciprofloxacin 500 MG TAB PO SCH ×2 (05:43→21:04)
[2019-11-21] MEDS: oxyCODONE 5 MG TAB PO PRN ×2 (08:34→21:03)
[2019-11-21] MEDS: Polyethylene Glycol 3350 17 GM Packet PO SCH (08:35)
[2019-11-21] MEDS: Aspirin 81 mg Enteric Coated Tablet PO SCH (08:35)
[2019-11-21] MEDS: Calcium Carbonate 500 MG TAB PO SCH (08:35)
[2019-11-21] MEDS: Tamsulosin HCl 0.4 MG CAP PO SCH ×2 (08:35→21:03)
[2019-11-21] MEDS: Pregabalin 50 MG CAP PO SCH ×3 (08:36→21:03)
[2019-11-21] MEDS: Ferrous Sulfate 325 MG TAB PO SCH ×2 (08:36→16:50)
[2019-11-21] MEDS: Nystatin Powder 15 GM BOT TOP SCH (08:37)
[2019-11-21] MEDS: Senokot S 8.6-50 MG TAB PO SCH ×2 (08:37→21:05)
[2019-11-21] MEDS: Finasteride 5 MG TAB PO SCH (08:37)
--- NOTE | 2019-11-21 13:19 | PRG ---
DATE OF SERVICE: 11/21/2019 SUBJECTIVE: Mr. Manriquez is up in his chair. He just finished his lunch. He states that his confusion is much improved. His routine laboratory values does not show any signs of infectious or metabolic etiology. Urine culture is pending. Also received a note from his urologist that they are planning on doing a cystoscopy and a transrectal ultrasound of his prostate and I gave them the medical clearance. They are going to coordinate it with the hospital. OBJECTIVE: VITAL SIGNS: The patient is afebrile, heart rate 81, respirations 20, oxygen saturations 94% on room air, blood pressure 112/64. CARDIOVASCULAR: S1 and S2 plus. RESPIRATORY: Normal vesicular breath sounds. ABDOMEN: Soft, nontender. Bowel sounds heard in all quadrants. EXTREMITIES: Without cyanosis or clubbing. CENTRAL NERVOUS SYSTEM: Generalized weakness, otherwise nonfocal. IMPRESSION: 1. Resolving thoracic spine osteomyelitis and diskitis. 2. Benign prostatic hypertrophy with urinary retention. The patient is able to void spontaneously sometimes. He did require in-and-out catheterization today due to postvoid residual being more than 450. 3. Hypertension. 4. Dyslipidemia. 5. Iron deficiency anemia. 6. Peripheral neuropathy. 7. Deconditioning. PLAN: 1. Continue current medications. 2. Clearance given for urologic procedure. 3. Spinal precautions. 4. Physical therapy. 5. Routine laboratory values. 6. Continue bladder scans q.6 with in-and-out cath if PVR greater than 400. Job ID: [id number]
[2019-11-21] MEDS: Atorvastatin Calcium 10 MG TAB PO SCH (21:05)
[2019-11-22] MEDS: Ciprofloxacin 500 MG TAB PO SCH ×2 (05:45→20:31)
[2019-11-22] MEDS: Polyethylene Glycol 3350 17 GM Packet PO SCH (08:31)
[2019-11-22] MEDS: Ferrous Sulfate 325 MG TAB PO SCH ×2 (08:32→17:38)
[2019-11-22] MEDS: Calcium Carbonate 500 MG TAB PO SCH (08:32)
[2019-11-22] MEDS: Senokot S 8.6-50 MG TAB PO SCH ×2 (08:32→20:31)
[2019-11-22] MEDS: Pregabalin 50 MG CAP PO SCH ×3 (08:32→20:31)
[2019-11-22] MEDS: Aspirin 81 mg Enteric Coated Tablet PO SCH (08:32)
[2019-11-22] MEDS: Finasteride 5 MG TAB PO SCH (08:32)
[2019-11-22] MEDS: Tamsulosin HCl 0.4 MG CAP PO SCH ×2 (08:32→20:31)
[2019-11-22] MEDS: oxyCODONE 5 MG TAB PO PRN ×2 (08:33→20:32)
--- NOTE | 2019-11-22 08:55 | PRG ---
DATE OF SERVICE: 11/22/2019 SUBJECTIVE: Mr. Manriquez is up in his chair. He denies any complaints. He states that he is still having on and off issues with urination, which is not new. He has been given medical clearance for cystoscopy and transrectal ultrasound. Dr. Hernandez wanted him to have a urine culture at least 2 weeks prior to the procedure and I did order one 2 days ago, so far it is negative. OBJECTIVE: VITAL SIGNS: He is afebrile. Heart rate 90, respirations 18, oxygen saturation 95% on room air, blood pressure 131/67. CARDIOVASCULAR: S1, S2 plus. RESPIRATORY: Normal vesicular breath sounds. ABDOMEN: Soft, nontender. Bowel sounds heard in all quadrants. EXTREMITIES: Without cyanosis or clubbing. IMPRESSION: 1. Thoracic spinal osteomyelitis and diskitis. 2. Hypertension. 3. Dyslipidemia. 4. Benign prostatic hypertrophy with urinary retention. 5. Iron-deficiency anemia. 6. Peripheral neuropathy. PLAN: 1. Continue current medications. 2. Heart-healthy diet. 3. In and out catheterization as needed. 4. Await urine culture. 5. Physical therapy. 6. Spinal precautions. 7. Routine laboratory values. 8. Await scheduling of cystoscopy and transrectal ultrasound of the prostate. Job ID: [id number]
[2019-11-22] MEDS: Atorvastatin Calcium 10 MG TAB PO SCH (20:31)
[2019-11-23] MEDS: Ciprofloxacin 500 MG TAB PO SCH ×2 (05:41→20:44)
[2019-11-23] MEDS: Polyethylene Glycol 3350 17 GM Packet PO SCH (08:40)
[2019-11-23] MEDS: Aspirin 81 mg Enteric Coated Tablet PO SCH (08:41)
[2019-11-23] MEDS: Finasteride 5 MG TAB PO SCH (08:41)
[2019-11-23] MEDS: Calcium Carbonate 500 MG TAB PO SCH (08:41)
[2019-11-23] MEDS: Senokot S 8.6-50 MG TAB PO SCH ×2 (08:41→20:45)
[2019-11-23] MEDS: Ferrous Sulfate 325 MG TAB PO SCH ×2 (08:41→16:35)
[2019-11-23] MEDS: Tamsulosin HCl 0.4 MG CAP PO SCH ×2 (08:41→20:44)
[2019-11-23] MEDS: Pregabalin 50 MG CAP PO SCH ×3 (08:41→20:45)
[2019-11-23] MEDS: oxyCODONE 5 MG TAB PO PRN ×2 (08:48→20:46)
[2019-11-23] MEDS: fentaNYL 50 mcg/hour Patch TD SCH (13:45)
--- NOTE | 2019-11-23 18:21 | PRG ---
DATE OF SERVICE: SUBJECTIVE: Mr. Manriquez is resting in bed. He feels like the neuropathy pain is improving. I advised him that his urine culture is negative so far. No concerns or questions. No family at bedside. OBJECTIVE: VITAL SIGNS: He is afebrile, heart rate 78, respirations 20, oxygen saturation 93% on room air, blood pressure 128/61. CARDIOVASCULAR: S1 and S2 plus. RESPIRATORY: Normal vesicular breath sounds. ABDOMEN: Soft, nontender. Bowel sounds heard in all quadrants. EXTREMITIES: Without cyanosis or clubbing. CENTRAL NERVOUS SYSTEM: Persistent deconditioning. IMPRESSION: 1. Resolving thoracic spine osteomyelitis and diskitis. 2. Peripheral neuropathy. 3. Benign prostatic hypertrophy with urinary retention. 4. Hypertension. 5. Dyslipidemia. 6. Iron deficiency anemia. PLAN: 1. Continue current medications. 2. Heart healthy diet. 3. Continue to monitor bladder scans and in and out catheterization as needed. 4. The patient has been cleared for cystoscopy and transrectal ultrasound. 5. Urine culture is negative. 6. Physical therapy. 7. Routine laboratory values. Job ID: [id number]
[2019-11-23] MEDS: Atorvastatin Calcium 10 MG TAB PO SCH (20:45)
[2019-11-24] MEDS: Ciprofloxacin 500 MG TAB PO SCH ×2 (06:01→20:19)
[2019-11-24] MEDS: Tamsulosin HCl 0.4 MG CAP PO SCH ×2 (08:04→20:19)
[2019-11-24] MEDS: Polyethylene Glycol 3350 17 GM Packet PO SCH (08:04)
[2019-11-24] MEDS: Aspirin 81 mg Enteric Coated Tablet PO SCH (08:04)
[2019-11-24] MEDS: Calcium Carbonate 500 MG TAB PO SCH (08:04)
[2019-11-24] MEDS: Ferrous Sulfate 325 MG TAB PO SCH ×2 (08:04→17:40)
[2019-11-24] MEDS: Senokot S 8.6-50 MG TAB PO SCH ×2 (08:04→20:19)
[2019-11-24] MEDS: Pregabalin 50 MG CAP PO SCH ×3 (08:05→20:19)
[2019-11-24] MEDS: Finasteride 5 MG TAB PO SCH (08:05)
[2019-11-24] MEDS: oxyCODONE 5 MG TAB PO PRN ×2 (08:12→20:20)
--- NOTE | 2019-11-24 15:42 | PRG ---
DATE OF SERVICE: 11/24/2019 SUBJECTIVE: Mr. Manriquez is sleeping, but arousable. He denies any questions or concerns. Nursing states that he has been scheduled for his cystoscopy on December 18. No family at bedside. OBJECTIVE: VITAL SIGNS: He is afebrile, heart rate 95, respirations 20, oxygen saturation 94% on room air, blood pressure 116/60. CARDIOVASCULAR: S1 and S2 plus. RESPIRATORY: Normal vesicular breath sounds. ABDOMEN: Soft, nontender. Bowel sounds heard in all quadrants. EXTREMITIES: Without cyanosis or clubbing. CENTRAL NERVOUS SYSTEM: Generalized weakness, otherwise nonfocal. IMPRESSION: 1. Resolving thoracic spine osteomyelitis and diskitis. 2. Hypertension. 3. Dyslipidemia. 4. Benign prostatic hypertrophy with urinary retention. 5. Iron deficiency anemia. 6. Peripheral neuropathy. 7. Deconditioning. PLAN: 1. Continue current medications. 2. Heart healthy diet. 3. In and out catheterization based upon PVR. 4. Continue spinal precautions. 5. Physical therapy. 6. Routine laboratory values. 7. Discussed with the patient and nursing in detail. All questions answered. Job ID: [id number]
[2019-11-24] MEDS: Atorvastatin Calcium 10 MG TAB PO SCH (20:19)
[2019-11-25] MEDS: Ciprofloxacin 500 MG TAB PO SCH ×2 (06:10→20:30)
[2019-11-25] MEDS: Polyethylene Glycol 3350 17 GM Packet PO SCH (07:54)
[2019-11-25] MEDS: Calcium Carbonate 500 MG TAB PO SCH (07:54)
[2019-11-25] MEDS: Ferrous Sulfate 325 MG TAB PO SCH ×2 (07:55→17:36)
[2019-11-25] MEDS: Finasteride 5 MG TAB PO SCH (07:55)
[2019-11-25] MEDS: Senokot S 8.6-50 MG TAB PO SCH ×2 (07:55→20:30)
[2019-11-25] MEDS: Tamsulosin HCl 0.4 MG CAP PO SCH ×2 (07:56→20:30)
[2019-11-25] MEDS: Pregabalin 50 MG CAP PO SCH ×3 (07:56→20:29)
[2019-11-25] MEDS: Aspirin 81 mg Enteric Coated Tablet PO SCH (07:58)
[2019-11-25] MEDS: oxyCODONE 5 MG TAB PO PRN ×2 (08:10→20:30)
--- NOTE | 2019-11-25 12:57 | PRG ---
DATE OF SERVICE: 11/25/2019 SUBJECTIVE: Mr. Manriquez is up in his chair. He just finished his lunch. He continues to complain of tingling and numbness in his legs. I again explained to him that it is probably from neuropathy and that I can increase the Lyrica to 150 mg three times a day if he wants. We switched him to Lyrica from gabapentin because he said the gabapentin was not helping. He does not want to increase the dose because he states that he is already very sleepy with the current dose. He is aware that he is scheduled for a cystoscopy and transrectal ultrasound of the prostate on December 18. OBJECTIVE: VITAL SIGNS: He is afebrile. Heart rate is 80, respirations are 18, oxygen saturation is 95% on room air, blood pressure is 109/62. CARDIOVASCULAR: S1 and S2 plus. RESPIRATORY: Normal vesicular breath sounds. ABDOMEN: Soft, nontender. Bowel sounds heard in all quadrants. EXTREMITIES: Without cyanosis or clubbing. CENTRAL NERVOUS SYSTEM: Persistent deconditioning. IMPRESSION: 1. Thoracic spine, osteomyelitis, and diskitis. 2. Hypertension. 3. Dyslipidemia. 4. Benign prostatic hypertrophy. 5. Iron deficiency anemia. 6. Peripheral neuropathy. 7. Deconditioning. PLAN: 1. Continue current medications. 2. Heart healthy diet. 3. Monitor postvoid residual and in and out catheterization as needed. 4. Physical therapy. 5. Routine laboratory values. 6. Continue current medication. 7. Await the weekly case conference tomorrow. Job ID: [id number]
[2019-11-25] MEDS: Atorvastatin Calcium 10 MG TAB PO SCH (20:30)
[2019-11-26] MEDS: Ciprofloxacin 500 MG TAB PO SCH ×2 (05:20→20:37)
[2019-11-26 05:33] LABS: Band 4 % (5-11); Eosinophils 9 % (0-10); Hemoglobin 12.7 g/dL (14.0-18.0); Hypochromia SLIGHT = 6-15 cells (100X) (0-5/hpf); Lymphocytes 16 % (21-51); MDiff Complete? YES; Mean Corpuscular HGB CONC 30.4 g/dL (32.0-36.0); Mean Corpuscular Hemoglobin 26.8 pg (27.0-31.0); Mean Corpuscular Volume 88.2 fL (78.0-98.0); Microcytosis SLIGHT = 6-15 cells (100X) (0-5/hpf); Monocytes 8 % (0-10); Neutrophil 62 % (42-75); Platelet Count 185 thou/uL (130-400); Platelet Morphology Comment Appears Adequate; Poikilocytosis MODERATE=16-30 cells (100X) (0-5/hpf); RBC Distribution Width 13.8 % (11.5-14.5); Red Blood Cell (RBC) Count 4.73 mill/uL (4.70-6.10); White Blood Cell (WBC) Count 6.7 thou/uL (4.8-10.8)
[2019-11-26 05:37] LABS: Anion Gap 14 mmol/L (10-20); BUN (Urea Nitrogen) 16 mg/dL (8.4-25.7); Calc. Creatinine Clearance 72 mL/min (70-130); Calcium 8.6 mg/dL (7.8-10.44); Carbon Dioxide 24 mmol/L (23-31); Chloride 104 mmol/L (98-107); Estimated GFR-MDRD 89; Glucose 101 mg/dL (83-110); Potassium 4.1 mmol/L (3.5-5.1); Sodium 138 mmol/L (136-145)
[2019-11-26] MEDS: Tamsulosin HCl 0.4 MG CAP PO SCH ×2 (08:39→20:37)
[2019-11-26] MEDS: oxyCODONE 5 MG TAB PO PRN ×2 (08:39→20:37)
[2019-11-26] MEDS: Senokot S 8.6-50 MG TAB PO SCH ×2 (08:40→20:37)
[2019-11-26] MEDS: Finasteride 5 MG TAB PO SCH (08:40)
[2019-11-26] MEDS: Ferrous Sulfate 325 MG TAB PO SCH ×2 (08:40→17:51)
[2019-11-26] MEDS: Pregabalin 50 MG CAP PO SCH ×2 (08:40→14:50)
[2019-11-26] MEDS: Polyethylene Glycol 3350 17 GM Packet PO SCH (08:40)
[2019-11-26] MEDS: Aspirin 81 mg Enteric Coated Tablet PO SCH (08:40)
[2019-11-26] MEDS: Calcium Carbonate 500 MG TAB PO SCH (08:41)
[2019-11-26] MEDS ORDERED: Fleet Enema 133 ML BOT PR SCH (13:00)
--- NOTE | 2019-11-26 13:18 | PRG ---
DATE OF SERVICE: 11/26/2019 SUBJECTIVE: Mr. Manriquez is not having a good day today. He states that he is just uncomfortable. He is noticing more tingling and numbness in his legs, and he just does not want to take the Lyrica as it make him some sleepy. He is also having issues with constipation and he is taking daily MiraLAX, but it is not helping. He continues to have problems with his BPH and is able to void only a little bit at a time. He is just generally frustrated with his condition. I had a long discussion with him and I told him that let us try to address one thing at a time. The first thing we are going to address is his constipation. I did talk to nursing and asked them to give him fleet enema and they can repeat x1 and see if that helps with his urination as well because sometimes I advised him that the hard stools will push the angle of the bladder up, which will cause him to have more difficulty with urination. Once that is resolved, they might switch him back to gabapentin that he was on before. The patient is amenable to it and he does understand that he was the one who wanted to switch to Lyrica, but he states that it is really not doing as well as gabapentin. I also advised him that he does have the oxycodone ordered every 4 hours as needed and make sure he does not wait too long to take the pain medications. OBJECTIVE: VITAL SIGNS: He is afebrile. Heart rate is 76, respirations 18, oxygen saturation 94% on room air, blood pressure 120/66. CARDIOVASCULAR: S1 and S2 plus. RESPIRATORY: Normal vesicular breath sounds. ABDOMEN: Soft, nontender. Bowel sounds heard in all quadrants. Some firmness noted, but no palpable tenderness, guarding, rebound, or rigidity. EXTREMITIES: Without cyanosis or clubbing. CENTRAL NERVOUS SYSTEM: Evidence for peripheral neuropathy. Otherwise, generalized weakness and grossly nonfocal. LABORATORY DATA: Repeat laboratory values done today shows a white count of 6.7, hemoglobin and hematocrit are 12.7 and 41.7, the best it has been since admission. Sodium 138, potassium 4.1, BUN and creatinine 16 and 0.82. IMPRESSION: 1. Constipation. 2. Resolving thoracic spine osteomyelitis and diskitis. 3. Peripheral neuropathy. 4. Hypertension. 5. Dyslipidemia. 6. BPH with urinary retention. 7. Iron deficiency anemia. 8. Persistent deconditioning. PLAN: 1. Continue current medications. 2. Bowel regimen with fleet enema p.r.n. 3. Heart healthy diet. 4. Spinal precautions. 5. Switch him from Lyrica to gabapentin once his constipation is resolved. 6. Continue postvoid residual monitoring and in and out catheterization as needed. 7. Reassured and encouraged the patient. 8. No family at bedside. 9. Discussed with the patient and nursing in detail. All questions answered. Job ID: [id number]
[2019-11-26] MEDS: fentaNYL 50 mcg/hour Patch TD SCH (13:24)
[2019-11-26] MEDS: Acetaminophen 500 MG TAB PO PRN (14:51)
--- NOTE | 2019-11-26 16:30 | RAD ---
THORACIC SPINE THREE VIEWS: 11/26/19 HISTORY: Worsening back pain. COMPARISON: CT angiogram chest 09/13/19. FINDINGS: Pedicle screws and rods are noted from T2 through T10 stabilizing extensively comminuted burst type f ractures of T4 and T5 with vertebral body height loss which is poorly defined on this study. Bone dem ineralization. Postop laminectomy from approximately T3 through T9. IMPRESSION: Pedicle screws and rods stabilize the thoracic spine. vertical height loss at T4 and T5 poorly define d. Status post extensive laminectomy. No overt malalignment. Depending upon concern, follow-up CT scan might be considered. POS: RRE
[2019-11-26] MEDS: Gabapentin 400 MG CAP PO SCH (20:37)
[2019-11-26] MEDS: Atorvastatin Calcium 10 MG TAB PO SCH (20:37)
[2019-11-27] MEDS: Acetaminophen 500 MG TAB PO PRN (05:44)
[2019-11-27] MEDS: Ciprofloxacin 500 MG TAB PO SCH ×2 (05:44→21:01)
[2019-11-27] MEDS: Polyethylene Glycol 3350 17 GM Packet PO SCH (08:15)
[2019-11-27] MEDS: Gabapentin 400 MG CAP PO SCH ×3 (08:16→21:00)
[2019-11-27] MEDS: Finasteride 5 MG TAB PO SCH (08:16)
[2019-11-27] MEDS: oxyCODONE 5 MG TAB PO PRN ×2 (08:16→21:03)
[2019-11-27] MEDS: Senokot S 8.6-50 MG TAB PO SCH ×2 (08:16→21:01)
[2019-11-27] MEDS: Aspirin 81 mg Enteric Coated Tablet PO SCH (08:16)
[2019-11-27] MEDS: Tamsulosin HCl 0.4 MG CAP PO SCH ×2 (08:16→21:01)
[2019-11-27] MEDS: Calcium Carbonate 500 MG TAB PO SCH (08:16)
[2019-11-27] MEDS: Ferrous Sulfate 325 MG TAB PO SCH ×2 (08:16→16:47)
[2019-11-27] MEDS: fentaNYL 50 mcg/hour Patch TD SCH (11:44)
--- NOTE | 2019-11-27 12:59 | PRG ---
DATE OF SERVICE: 11/27/2019 SUBJECTIVE: Mr. Manriquez had a good bowel movement with a Fleet enema yesterday. He apparently also had a good day with therapy today. His x-ray of his back does not show any gross malalignment. He is also tolerating the gabapentin. OBJECTIVE: VITAL SIGNS: He is afebrile, heart rate 70, respirations 18, oxygen saturation 94% on room air, and blood pressure 121/67. CARDIOVASCULAR SYSTEM: S1 and S2 plus. RESPIRATORY SYSTEM: Normal vesicular breath sounds. ABDOMEN: Soft and nontender. Bowel sounds heard in all quadrants. EXTREMITIES: Without cyanosis or clubbing. CENTRAL NERVOUS SYSTEM: Persistent deconditioning. IMPRESSION: 1. Hypertension. 2. Dyslipidemia. 3. Benign prostatic hyperplasia. 4. Resolving thoracic spine osteomyelitis and diskitis. 5. Iron-deficiency anemia. PLAN: 1. Continue current medications. 2. Bowel regimen. 3. Nutritional support. 4. Monitor postvoid residuals and in-and-out catheterization as needed. 5. Continue therapy. 6. Discharge planning. Job ID: [id number]
[2019-11-27] MEDS: Atorvastatin Calcium 10 MG TAB PO SCH (21:01)
[2019-11-27] MEDS: Nystatin Powder 15 GM BOT TOP SCH (21:36)
[2019-11-28] MEDS: Ciprofloxacin 500 MG TAB PO SCH ×2 (05:20→20:04)
[2019-11-28] MEDS: Polyethylene Glycol 3350 17 GM Packet PO SCH (08:05)
[2019-11-28] MEDS: Gabapentin 400 MG CAP PO SCH ×3 (08:06→20:04)
[2019-11-28] MEDS: Senokot S 8.6-50 MG TAB PO SCH ×2 (08:06→20:04)
[2019-11-28] MEDS: Nystatin Powder 15 GM BOT TOP SCH (08:06)
[2019-11-28] MEDS: Ferrous Sulfate 325 MG TAB PO SCH ×2 (08:06→17:07)
[2019-11-28] MEDS: Aspirin 81 mg Enteric Coated Tablet PO SCH (08:06)
[2019-11-28] MEDS: Calcium Carbonate 500 MG TAB PO SCH (08:06)
[2019-11-28] MEDS: Finasteride 5 MG TAB PO SCH (08:06)
[2019-11-28] MEDS: oxyCODONE 5 MG TAB PO PRN (08:07)
[2019-11-28] MEDS: Tamsulosin HCl 0.4 MG CAP PO SCH ×2 (08:10→20:04)
--- NOTE | 2019-11-28 13:24 | PRG ---
DATE OF SERVICE: 11/28/2019 SUBJECTIVE: Mr. Manriquez is resting in bed. He just finished his lunch. He states that he is not drowsy anymore now that he is off the Lyrica and on the gabapentin. He was on the phone with his and she was asking me when he is going to [facility] and I advised them that the last time I tried to arrange for him to go to [facility], his daughter had a fit and wanted him to stay here until she figured out staff, so I told them it is best that they as a family decide and then have the daughter call me as to what their plan is, what their wishes are, and I will make it happen. OBJECTIVE: VITAL SIGNS: He is afebrile, heart rate 75, respirations 18, oxygen saturation 93% on room air, and blood pressure 112/65. CARDIOVASCULAR SYSTEM: S1 and S2 plus. RESPIRATORY SYSTEM: Normal vesicular breath sounds. ABDOMEN: Soft and nontender. Bowel sounds heard in all quadrants. EXTREMITIES: Without cyanosis or clubbing. CENTRAL NERVOUS SYSTEM: Persistent deconditioning and peripheral neuropathy. IMPRESSION: 1. Resolving thoracic spine osteomyelitis and diskitis. 2. Hypertension. 3. Dyslipidemia. 4. Benign prostatic hyperplasia. 5. Iron-deficiency anemia. 6. Peripheral neuropathy. 7. Persistent deconditioning. PLAN: 1. Continue current medications. 2. Heart healthy diet. 3. Monitor PVR and in-and-out catheterization as needed. 4. Physical therapy. 5. Spinal precaution. 6. Routine laboratory value. 7. Awaiting family decision on whether they want him to try to go to [facility]. Job ID: [id number]
[2019-11-28] MEDS: Atorvastatin Calcium 10 MG TAB PO SCH (20:04)
[2019-11-29] MEDS: Ciprofloxacin 500 MG TAB PO SCH ×2 (05:30→20:10)
[2019-11-29] MEDS: Senokot S 8.6-50 MG TAB PO SCH ×2 (08:45→20:09)
[2019-11-29] MEDS: Tamsulosin HCl 0.4 MG CAP PO SCH ×2 (08:45→20:09)
[2019-11-29] MEDS: Aspirin 81 mg Enteric Coated Tablet PO SCH (08:45)
[2019-11-29] MEDS: Polyethylene Glycol 3350 17 GM Packet PO SCH (08:45)
[2019-11-29] MEDS: Ferrous Sulfate 325 MG TAB PO SCH ×2 (08:45→16:49)
[2019-11-29] MEDS: Calcium Carbonate 500 MG TAB PO SCH (08:46)
[2019-11-29] MEDS: Gabapentin 400 MG CAP PO SCH ×3 (08:46→20:09)
[2019-11-29] MEDS: Finasteride 5 MG TAB PO SCH (08:46)
[2019-11-29] MEDS: oxyCODONE 5 MG TAB PO PRN (08:51)
[2019-11-29] MEDS: fentaNYL 50 mcg/hour Patch TD SCH (17:05)
[2019-11-29] MEDS: Atorvastatin Calcium 10 MG TAB PO SCH (20:10)
[2019-11-30] MEDS: Ciprofloxacin 500 MG TAB PO SCH ×2 (05:21→20:11)
[2019-11-30] MEDS: Polyethylene Glycol 3350 17 GM Packet PO SCH (07:46)
[2019-11-30] MEDS: Gabapentin 400 MG CAP PO SCH ×3 (07:46→20:11)
[2019-11-30] MEDS: Ferrous Sulfate 325 MG TAB PO SCH ×2 (07:47→17:21)
[2019-11-30] MEDS: Calcium Carbonate 500 MG TAB PO SCH (07:47)
[2019-11-30] MEDS: Tamsulosin HCl 0.4 MG CAP PO SCH ×2 (07:47→20:11)
[2019-11-30] MEDS: Aspirin 81 mg Enteric Coated Tablet PO SCH (07:47)
[2019-11-30] MEDS: Finasteride 5 MG TAB PO SCH (07:47)
[2019-11-30] MEDS: Senokot S 8.6-50 MG TAB PO SCH ×2 (07:48→20:11)
[2019-11-30] MEDS: oxyCODONE 5 MG TAB PO PRN (07:48)
[2019-11-30] MEDS ORDERED: fentaNYL 50 mcg/hour Patch TD SCH (15:00)
[2019-11-30] MEDS: Atorvastatin Calcium 10 MG TAB PO SCH (20:10)
[2019-12-01] MEDS: Ciprofloxacin 500 MG TAB PO SCH ×2 (05:33→20:38)
[2019-12-01] MEDS: Tamsulosin HCl 0.4 MG CAP PO SCH ×2 (08:22→20:38)
[2019-12-01] MEDS: Aspirin 81 mg Enteric Coated Tablet PO SCH (08:22)
[2019-12-01] MEDS: Polyethylene Glycol 3350 17 GM Packet PO SCH (08:22)
[2019-12-01] MEDS: Gabapentin 400 MG CAP PO SCH ×3 (08:22→20:38)
[2019-12-01] MEDS: Ferrous Sulfate 325 MG TAB PO SCH ×2 (08:22→17:01)
[2019-12-01] MEDS: Senokot S 8.6-50 MG TAB PO SCH ×2 (08:23→20:38)
[2019-12-01] MEDS: Finasteride 5 MG TAB PO SCH (08:23)
[2019-12-01] MEDS: Calcium Carbonate 500 MG TAB PO SCH (08:23)
[2019-12-01] MEDS: oxyCODONE 5 MG TAB PO PRN (08:23)
[2019-12-01 15:15] VITALS: BMI 24.1
--- NOTE | 2019-12-01 19:50 | PRG ---
DATE OF SERVICE: 11/30/2019 SUBJECTIVE: The patient lying in bed, feels well, persistent back pain and weakness, but is hoping to be transferred to inpatient rehab now as he feels that he can maintain the exercise requirements there. OBJECTIVE: VITAL SIGNS: Show temperature is 97.3, pulse 74, respirations 20, O2 sats 94% on room air, and blood pressure 116/63. LUNGS: Clear. CARDIAC: Showed regular rhythm. ABDOMEN: Soft and nontender. BACK: Shows tenderness to palpation of the lower back, but with decreased spasms, resolved. ASSESSMENT: 1. Resolving thoracic spine, osteomyelitis and diskitis on oral Cipro, with good pain control on fentanyl patch and is willing to attempt more extensive therapy. 2. Benign prostatic hypertrophy, stable. 3. Hypertension, controlled to goal. 4. Deconditioning, persistent but improving enough to possibly meet require inpatient rehab. PLAN: 1. Await insurance approval of [facility]. 2. Continue PT and OT. 3. Continue in-and-out catheterization, Melendez in the bladder as needed. 4. Continue heart-healthy diet. 5. Continue pain medications for Dr. Simpson. Job ID: [id number]
--- NOTE | 2019-12-01 19:55 | PRG ---
DATE OF SERVICE: 12/01/2019 SUBJECTIVE: The patient is sleeping, lying in bed with no complaints of pain. No fever, chills, nausea, vomiting. Awaiting decision on his insurance company of transfer to inpatient rehab. OBJECTIVE: VITAL SIGNS: Blood pressure is 133/57, temperature is 98, pulse 84, respiration 19, O2 saturations 94% on room air. LUNGS: Clear. CARDIAC: Regular rhythm. ABDOMEN: Soft, nontender. SKIN/EXTREMITIES: Displayed no edema, clubbing, or cyanosis. There is tenderness to palpation of the lower lumbar spine. ASSESSMENT: 1. Resolving thoracic spine osteomyelitis, on oral antibiotics. 2. Stable hypertension. 3. Improving deconditioning. 4. Persistent peripheral neuropathy. PLAN: Await insurance decision on transfer to [facility]. Continue current medications. Continue physical therapy. Job ID: [id number]
[2019-12-01] MEDS: Acetaminophen 500 MG TAB PO PRN (20:38)
[2019-12-01] MEDS: Atorvastatin Calcium 10 MG TAB PO SCH (20:38)
[2019-12-02] MEDS: Ciprofloxacin 500 MG TAB PO SCH (06:20)
[2019-12-02] MEDS: Polyethylene Glycol 3350 17 GM Packet PO SCH (07:53)
[2019-12-02] MEDS: Senokot S 8.6-50 MG TAB PO SCH (07:53)
[2019-12-02] MEDS: oxyCODONE 5 MG TAB PO PRN (07:53)
[2019-12-02] MEDS: Aspirin 81 mg Enteric Coated Tablet PO SCH (07:53)
[2019-12-02] MEDS: Tamsulosin HCl 0.4 MG CAP PO SCH (07:54)
[2019-12-02] MEDS: Ferrous Sulfate 325 MG TAB PO SCH ×2 (07:54→17:15)
[2019-12-02] MEDS: Gabapentin 400 MG CAP PO SCH ×2 (07:55→15:30)
[2019-12-02] MEDS: Calcium Carbonate 500 MG TAB PO SCH (07:55)
[2019-12-02] MEDS: Finasteride 5 MG TAB PO SCH (07:55)
--- NOTE | 2019-12-02 13:16 | PRG ---
DATE OF SERVICE: 12/02/2019 SUBJECTIVE: Mr. Manriquez is resting in bed. He denies any complaints. He is tolerating therapy. Awaiting acceptance to [facility]. Apparently, nursing talked with the daughter and all the families on board. OBJECTIVE: VITAL SIGNS: He is afebrile. Heart rate 76, respirations 19, oxygen saturation 94% on room air, blood pressure 119/67. CARDIOVASCULAR: S1 and S2 plus. RESPIRATORY: Normal vesicular breath sounds. ABDOMEN: Soft, nontender. Bowel sounds heard in all quadrants. EXTREMITIES: Without cyanosis or clubbing. CENTRAL NERVOUS SYSTEM: Improving deconditioning. IMPRESSION: 1. Hypertension. 2. Dyslipidemia. 3. BPH. 4. Thoracic spinal osteomyelitis and diskitis, much improved. 5. Peripheral neuropathy. 6. Deconditioning. 7. Iron deficiency anemia. PLAN: 1. Continue current medications. 2. Heart healthy diet. 3. Monitor PVR. 4. Physical therapy. 5. Await acceptance from rehab. 6. Routine laboratory values. 7. Nutritional support. Job ID: [id number]
[2019-12-02 20:08] VITALS: BP 116/60; TEMP 97.9
--- NOTE | 2019-12-04 07:06 | DIS ---
DATE OF ADMISSION: 09/20/2019 DATE OF DISCHARGE: 12/02/2019 PRINCIPAL DIAGNOSES: Resolving thoracic spine osteomyelitis and diskitis. SECONDARY DIAGNOSES: 1. Hypertension. 2. Dyslipidemia. 3. Benign prostatic hypertrophy. 4. Iron-deficiency anemia. 5. Peripheral neuropathy. 6. Deconditioning. COMPLICATIONS: None. ADVERSE REACTIONS: None. PROCEDURES: None. CONSULTATIONS: None. HOSPITAL COURSE: The patient was admitted on 09/19 for long-term antibiotic therapy due to thoracic spine osteomyelitis and diskitis. He has completed his IV antibiotic therapy. He has been transferred to suppressive oral antibiotic therapy with ciprofloxacin. His weekly CBC, CMP, CRP, and sedimentation rate were followed and his CRP is down to normal. He had a Tele visit with Neurosurgery and they recommended continuing same treatment and follow up in 3 months. He did complain of some worsening pain, so we did an x-ray of his thoracic spine, which does not show any new changes. 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 He has been slowly improving with therapy and family wanted to see if he qualifies for inpatient rehabilitation, which he did and so he is being transferred today. He was on gabapentin for his neuropathy, but due to one of his friends taking it and it helping, so we did switch him over, but he did not do well on it at all and so has been transferred back to gabapentin. PHYSICAL EXAMINATION: VITAL SIGNS: On the day of discharge, he is afebrile, heart rate 68, respirations 18, oxygen saturation 93% on room air, and blood pressure 116/60. CARDIOVASCULAR: S1 and S2 plus. RESPIRATORY: Normal breath sounds. ABDOMEN: Soft and nontender. Bowel sounds heard in all quadrants. EXTREMITIES: Without cyanosis or clubbing. CENTRAL NERVOUS SYSTEM: Improving, deconditioning. DISCHARGE MEDICATIONS: 1. Tylenol 500 q.4 p.r.n. pain. 2. Ecotrin 81 mg daily. 3. Lipitor 10 mg daily. 4. Calcium carbonate 500 mg daily. 5. Ciprofloxacin 500 mg b.i.d. 6. Duragesic patch 50 mcg q.72 hours. 7. Iron sulfate 325 b.i.d. 8. Proscar 5 mg daily. 9. Gabapentin 400 mg t.i.d. 10. Oxycodone 5 mg q.4 hours p.r.n. for pain 4 to 7 and oxycodone 10 mg p.o. q.4 hours p.r.n. for pain 8 to 10. 11. Pantoprazole 40 mg daily. 12. MiraLAX 17 g in 8 ounces of water daily. 13. Tamsulosin 0.4 mg b.i.d. 14. Ambien 5 mg p.o. at bedtime p.r.n. inpatient rehab. Heart healthy diet. Activity as tolerated. Continue to have bladder scans and postvoid residuals monitored and in and out catheterization. If it is greater than 400 mL. He will have a repeat urine culture done on December 06. He is scheduled for cystoscopy and transrectal prostate ultrasound on December 18. For full details, please see chart. Job ID: [id number]
== END 2019-12-02 19:50 | DRG 560 ==
LOC: NAV ACUTE 15:44
PROVIDERS: ADMIT Internal Medicine; ATTEND Internal Medicine
DX: T84.7XXA Infection and inflammatory reaction due to other internal orthopedic prosthetic devices, implants and grafts, initial encounter (principal); M46.24 Osteomyelitis of vertebra, thoracic region; M48.07 Spinal stenosis, lumbosacral region; N40.1 Benign prostatic hyperplasia with lower urinary tract symptoms; G89.29 Other chronic pain; R53.81 Other malaise; R33.8 Other retention of urine; K59.00 Constipation, unspecified; D63.8 Anemia in other chronic diseases classified elsewhere; G47.00 Insomnia, unspecified; Y83.8 Other surgical procedures as the cause of abnormal reaction of the patient, or of later complication, without mention of misadventure at the time of the procedure; I10 Essential (primary) hypertension; G62.9 Polyneuropathy, unspecified; E78.5 Hyperlipidemia, unspecified; Z87.891 Personal history of nicotine dependence; C44.300 Unspecified malignant neoplasm of skin of unspecified part of face; M46.44 Discitis, unspecified, thoracic region; D50.9 Iron deficiency anemia, unspecified
CPT/HCPCS: 36415; 72072; 80048; 80053; 85025; 85652; 86140; 87086; C9113; J0692; J2997; J3490